=== PATIENT | male | born 1960 | race Caucasian/White ===

== ENCOUNTER → 2017-05-30 | Outpatient (CLI) | payer BC ==
--- NOTE | 2017-05-30 18:19 | RADIOLOGY REPORT (SQ) ---
EXAM DESCRIPTION: KUB/ABDOMEN (SINGLE VIEW) COMPLETED DATE/TIME: 05/30/2017 6:12 pm REASON FOR STUDY: CONSTIPATION-SLOW TRANSIT COMPARISON: None. NUMBER OF VIEWS: One view. TECHNIQUE: Supine radiographic image of the abdomen acquired. LIMITATIONS: None. FINDINGS: BOWEL GAS PATTERN: Normal bowel gas pattern. No dilated loops. CALCIFICATIONS: No suspicious calcifications. SOFT TISSUES: No gross mass or suggestion of organomegaly. HARDWARE: None in the abdomen. BONES: No acute fracture. No worrisome bone lesions. OTHER: No other significant finding. IMPRESSION: NO RADIOGRAPHIC EVIDENCE FOR ACUTE ABDOMINAL DISEASE. TECHNICAL DOCUMENTATION: JOB ID: [id number] [email or web address]- All Rights Reserved
== END ==
LOC: RAD 17:57
PROVIDERS: ATTEND Physician Assistant Surgical
DX: K59.01 Slow transit constipation (principal)
CPT/HCPCS: 74000

== ENCOUNTER → 2018-01-12 | Outpatient (CLI) | payer BC ==
[2018-01-12 17:49] LABS: ABSOLUTE EOSINOPHILS # (AUTO) 0.2 10^3/uL (0.0-0.6); ABSOLUTE LYMPHOCYTES (AUTO) 1.8 10^3/uL (0.5-4.7); ABSOLUTE MONOCYTES (AUTO) 0.4 10^3/uL (0.1-1.4); ABSOLUTE NEUT (AUTO) 3.2 10^3/uL (1.7-8.2); BASOPHILS % (AUTO) 0.7 % (0-2); EOSINOPHILS % (AUTO) 4.3 % (0-6); HEMOGLOBIN 14.2 g/dL (13.5-17.0); MEAN CORPUSCULAR HEMOGLOBIN 29.5 pg (27.0-33.4); MEAN CORPUSCULAR HGB CONC 34.7 g/dL (32.0-36.0); MEAN CORPUSCULAR VOLUME 85 fl (80-97); MONOCYTES % (AUTO) 7.4 % (3-13); PLATELET COUNT 206 10^3/uL (150-450); RED BLOOD COUNT 4.83 10^6/uL (4.35-5.55); RED CELL DISTRIBUTION WIDTH 13.3 % (11.5-14.0); SEGMENTED NEUTROPHILS % (AUTO) 56.6 % (42-78); TOTAL CELLS COUNTED % (AUTO) 100 %; WHITE BLOOD COUNT 5.7 10^3/uL (4.0-10.5)
== END ==
LOC: LAB 17:36
PROVIDERS: ATTEND Internal Medicine Gastroenterology
DX: K57.32 Diverticulitis of large intestine without perforation or abscess without bleeding (principal)
CPT/HCPCS: 36415; 85025

== ENCOUNTER → 2018-01-13 | Outpatient (CLI) | payer BC ==
--- NOTE | 2018-01-13 12:05 | RADIOLOGY REPORT (SQ) ---
EXAM DESCRIPTION: CT ABD/PELVIS WITH IV ORAL COMPLETED DATE/TIME: 01/13/2018 11:41 am REASON FOR STUDY: DIVERTICULITIS W/O HEM (K57.32), LLQ PAIN (R10.32) K57.32 DVTRCLI OF LG INT W/O P ERFORATION OR ABSCESS W/O BLEE R10.32 LEFT LOWER QUADRANT PAIN COMPARISON: None. TECHNIQUE: CT scan of the abdomen and pelvis performed using helical scanning technique with dynamic intravenous contrast injection. Oral contrast. Images reviewed with lung, soft tissue, and bone win dows. Reconstructed coronal and sagittal MPR images reviewed. Delayed images for evaluation of the ur inary system also acquired. All images stored on PACS. All CT scanners at this facility use dose modulation, iterative reconstruction, and/or weight based d osing when appropriate to reduce radiation dose to as low as reasonably achievable (ALARA). [facility]: Dose Right [facility]: CareDose [facility]: Dose Right [facility]: Teradose 4D [facility]: PaeDae CONTRAST TYPE AND DOSE: 46.72 100 mL Omnipaque 350- low osmolar. RENAL FUNCTION: Creatinine 1.1 RADIATION DOSE: CT Rad equipment meets quality standard of care and radiation dose reduction techniq ues were employed. CTDIvol: 23.2 - 23.5 mGy. DLP: 2361 mGy-cm.. LIMITATIONS: None. FINDINGS: LOWER CHEST: There is marked pleural nodularity. Numerous small pulmonary nodules are pre sent. The largest is about 8 mm. LIVER: Normal size. No masses. No dilated ducts. SPLEEN: Normal size. No focal lesions. PANCREAS: No masses. No significant calcifications. No adjacent inflammation or peripancreatic fluid collections. Pancreatic duct not dilated. GALLBLADDER: No identified stones by CT criteria. No inflammatory changes to suggest cholecystitis. ADRENAL GLANDS: No significant masses or asymmetry. RIGHT KIDNEY AND URETER: No solid masses. No significant calcifications. No hydronephrosis or hyd roureter. LEFT KIDNEY AND URETER: No solid masses. No significant calcifications. No hydronephrosis or hydr oureter. AORTA AND VESSELS: No aneurysm. No dissection. Renal arteries, SMA, celiac without stenosis. RETROPERITONEUM: Numerous periaortic nodes are present. The largest measures 17 mm in short axis. BOWEL AND PERITONEAL CAVITY: Numerous diverticula are seen arising from the sigmoid colon. There is thickening of a segment of the sigmoid wall. No significant stranding is seen in the fat around the bowel. No obvious bowel masses are seen. APPENDIX: Surgically absent. PELVIS: No mass. No free fluid. Normal bladder. ABDOMINAL WALL: No masses. No hernias. BONES: No osseous lesions are present. OTHER: No other significant finding. IMPRESSION: 1. Pulmonary and pleural nodularity somewhat concerning for metastatic disease. Is the re a known neoplasm? 2. Numerous periaortic lymph nodes are present. 3. Sigmoid diverticulosis with mild wall thickening of a segment of the sigmoid that may indicate in flammation. COMMENT: Findings were discussed with the ordering physician at 1200 hours on this date. TECHNICAL DOCUMENTATION: JOB ID: [id number] Quality ID # [id number]: Final reports with documentation of one or more dose reduction techniques (e.g., Au tomated exposure control, adjustment of the mA and/or kV according to patient size, use of iterative reconstruction technique) 2010 [employer]- All Rights Reserved Reading location - IP/workstation name: [email or web address]
== END ==
LOC: RAD 09:06
PROVIDERS: ATTEND Internal Medicine Gastroenterology
DX: K57.32 Diverticulitis of large intestine without perforation or abscess without bleeding (principal); R10.32 Left lower quadrant pain
CPT/HCPCS: 74177; 82565

== ENCOUNTER 2018-03-05 12:06 | Inpatient (IN) | payer BC ==
[2018-03-05] MEDS ORDERED: ONDANSETRON HCL INJ/PF 4 MG/2 ML SDV IV ONE (14:42)
[2018-03-05] MEDS ORDERED: MORPHINE SULFATE 10 MG/ML INJ IV ONE ×3 (14:42→23:49)
[2018-03-05] MEDS ORDERED: NORMAL SALINE 1000 ML 1,000 ML IV ONE ×2 (14:42→22:41)
--- NOTE | 2018-03-05 14:44 | ER Document Report ---
ED Medical Screen (RME) - General Chief Complaint: Abdominal Pain Stated Complaint: LOWER ABDOMINAL PAIN Time Seen by Provider: 03/05/18 14:36 Mode of Arrival: Ambulatory Information source: Patient Notes: Patient is a 58-year-old male who presents with chief complaint of low abdominal pain. Patient reports this is been going on for several months, states over the last several days it has gotten worse. Patient reports low- grade fever at home, nausea and vomiting. Patient denies any diarrhea. Patient reports that the pain is exacerbated with any oral intake. Patient denies any urinary symptoms. Exam: Abdomen tender to palpation to right lower quadrant as well as suprapubic area. I have greeted and performed a rapid initial assessment of this patient. A comprehensive ED assessment and evaluation of the patient, analysis of test results and completion of the medical decision making process will be conducted by additional ED providers. Dictation of this chart was performed using voice recognition software; therefore, there may be some unintended grammatical errors. TRAVEL OUTSIDE OF THE [place] IN LAST 30 DAYS: No - Related Data Allergies/Adverse Reactions: Penicillins Allergy (Severe, Verified 03/05/18 14:35) tetracycline [Tetracycline] Allergy (Intermediate, Verified 03/05/18 14:35) codeine [Codeine] Adverse Reaction (Intermediate, Verified 03/05/18 14:35) Nausea Past Medical History - Social History Chew tobacco use (# tins/day): No Frequency of alcohol use: None Drug Abuse: None - Past Medical History Cardiac Medical History: Reports: Hx Hypertension - MEDICATED Denies: Hx Heart Attack Pulmonary Medical History: Denies: Hx Asthma Neurological Medical History: Denies: Hx Cerebrovascular Accident, Hx Seizures Renal/ Medical History: Denies: Hx Peritoneal Dialysis GI Medical History: Denies: Hx Hepatitis, Hx Hiatal Hernia, Hx Ulcer Infectious Medical History: Denies: Hx Hepatitis Past Surgical History: Reports: Hx Appendectomy, Hx Neurologic Surgery - Removal of benign brain tumor. Denies: Hx Open Heart Surgery, Hx Pacemaker Physical Exam - Vital signs Vitals: Temp Pulse Resp BP Pulse Ox 98.2 F 78 24 H 128/68 H 97 03/05/18 12:43 03/05/18 12:43 03/05/18 12:43 03/05/18 12:43 03/05/18 12:43 Course - Vital Signs Vital signs: Temp Pulse Resp BP Pulse Ox 98.2 F 78 24 H 128/68 H 97 03/05/18 12:43 03/05/18 12:43 03/05/18 12:43 03/05/18 12:43 03/05/18 12:43
[2018-03-05 15:15] LABS: ABSOLUTE EOSINOPHILS # (AUTO) 0.1 10^3/uL (0.0-0.6); ABSOLUTE LYMPHOCYTES (AUTO) 1.1 10^3/uL (0.5-4.7); ABSOLUTE MONOCYTES (AUTO) 0.7 10^3/uL (0.1-1.4); ABSOLUTE NEUT (AUTO) 6.6 10^3/uL (1.7-8.2); APPEARANCE,URINE CLEAR; BASOPHILS % (AUTO) 0.3 % (0-2); BILIRUBIN,URINE NEGATIVE (NEGATIVE); COLOR,URINE YELLOW; EOSINOPHILS % (AUTO) 1.6 % (0-6); GLUCOSE, URINE NEGATIVE (NEGATIVE); HEMATOCRIT 42.8 % (37.9-51.0); HEMOGLOBIN 15.1 g/dL (13.5-17.0); KETONES,URINE 20 mg/dL (NEGATIVE); LEUKOCYTE ESTERASE,URINE NEGATIVE (NEGATIVE); LYMPHOCYTES % (AUTO) 12.8 % (13-45); MEAN CORPUSCULAR HEMOGLOBIN 29.8 pg (27.0-33.4); MEAN CORPUSCULAR HGB CONC 35.1 g/dL (32.0-36.0); MEAN CORPUSCULAR VOLUME 85 fl (80-97); MONOCYTES % (AUTO) 8.2 % (3-13); NITRITE,URINE NEGATIVE (NEGATIVE); PLATELET COUNT 188 10^3/uL (150-450); PROTEIN,URINE NEGATIVE (NEGATIVE); RED BLOOD COUNT 5.04 10^6/uL (4.35-5.55); RED CELL DISTRIBUTION WIDTH 13.3 % (11.5-14.0); SEGMENTED NEUTROPHILS % (AUTO) 77.1 % (42-78); TOTAL CELLS COUNTED % (AUTO) 100 %; URINE SPECIFIC GRAVITY 1.026; UROBILINOGEN,URINE NEGATIVE mg/dL (<2.0); WHITE BLOOD COUNT 8.6 10^3/uL (4.0-10.5)
[2018-03-05 15:32] LABS: ALANINE AMINOTRANSFERASE 25 U/L (21-72); ALBUMIN 4.3 g/dL (3.5-5.0); ALKALINE PHOSPHATASE 74 U/L (38-126); ANION GAP 9 (5-19); ASPARTATE AMINO TRANSFERASE 24 U/L (17-59); BILIRUBIN,DIRECT 0.5 mg/dL (0.0-0.4); BILIRUBIN,TOTAL 1.3 mg/dL (0.2-1.3); BLOOD UREA NITROGEN 19 mg/dL (7-20); CALCIUM 9.5 mg/dL (8.4-10.2); CARBON DIOXIDE 29 mmol/L (22-30); CHLORIDE 101 mmol/L (98-107); GLUCOSE 103 mg/dL (75-110); LIPASE 76.2 U/L (23-300); POTASSIUM 4.4 mmol/L (3.6-5.0); SODIUM 138.9 mmol/L (137-145); TOTAL PROTEIN 7.9 g/dL (6.3-8.2)
--- NOTE | 2018-03-05 17:51 | ER Document Report ---
ED GI/ - General Chief Complaint: Abdominal Pain Stated Complaint: LOWER ABDOMINAL PAIN Time Seen by Provider: 03/05/18 14:36 Mode of Arrival: Ambulatory Notes: Patient is a 58-year-old male who states that he has had abdominal pain to the lower abdominal region for 1 year. In May he saw the straight knife cutter machine, Dr. Pineda, and had a colonoscopy and endoscopy that was unremarkable except for some diverticuli. Patient states he then followed up again in December given the constant pain and had a CT scan that was supposedly also unremarkable. Patient was still started however on ciprofloxacin and Flagyl. He states he felt better for only 1 week. Patient states he again has had this recurrence of pain since that time. He states it is intermittent. He states it is to the level suprapubic region. He denies any nausea, vomiting, fevers, or diarrhea. He actually states he has some trouble with constipation. He denies any testicular pain, penile lesions, or dysuria. TRAVEL OUTSIDE OF THE [place] IN LAST 30 DAYS: No - HPI Patient complains to provider of: Other - See above Onset: Other - See above Timing/Duration: Gradual Quality of pain: Achy Severity at maximum: Moderate Severity in ED: Mild Pain Level: 1 Context: Other - See above Location: Other - See above Sexual history: Inactive Associated symptoms: Other - See above Exacerbated by: Denies Relieved by: Denies - Related Data Allergies/Adverse Reactions: Penicillins Allergy (Severe, Verified 03/05/18 14:35) tetracycline [Tetracycline] Allergy (Intermediate, Verified 03/05/18 14:35) codeine [Codeine] Adverse Reaction (Intermediate, Verified 03/05/18 14:35) Nausea Past Medical History - General Information source: Patient - Social History Smoking Status: Never Smoker Chew tobacco use (# tins/day): No Frequency of alcohol use: None Drug Abuse: None Family History: Reviewed & Not Pertinent Patient has suicidal ideation: No Patient has homicidal ideation: No - Past Medical History Cardiac Medical History: Reports: Hx Hypertension - MEDICATED Denies: Hx Heart Attack Pulmonary Medical History: Denies: Hx Asthma Neurological Medical History: Denies: Hx Cerebrovascular Accident, Hx Seizures Renal/ Medical History: Denies: Hx Peritoneal Dialysis GI Medical History: Denies: Hx Hepatitis, Hx Hiatal Hernia, Hx Ulcer Infectious Medical History: Denies: Hx Hepatitis Past Surgical History: Reports: Hx Appendectomy, Hx Neurologic Surgery - Removal of benign brain tumor. Denies: Hx Open Heart Surgery, Hx Pacemaker Review of Systems - Review of Systems Constitutional: denies: Fever EENT: denies: Eye discharge, Nose discharge Cardiovascular: denies: Chest pain, Palpitations Respiratory: denies: Short of breath Gastrointestinal: denies: Vomiting Genitourinary: denies: Dysuria Musculoskeletal: denies: Leg swelling Skin: Other - no hives. denies: Rash Neurological/Psychological: Other - no slurred speech -: Yes All other systems reviewed and negative Physical Exam - Vital signs Vitals: Temp Pulse Resp BP Pulse Ox 98.2 F 78 24 H 128/68 H 97 03/05/18 12:43 03/05/18 12:43 03/05/18 12:43 03/05/18 12:43 03/05/18 12:43 Notes: Reviewed vital signs and nursing note as charted by RN. CONSTITUTIONAL: Alert and oriented and responds appropriately to questions. Well -appearing; well-nourished HEAD: Normocephalic; atraumatic EYES: Sclerae non-icteric ENT: Normal nose; no rhinorrhea; moist mucous membranes; pharynx without lesions noted NECK: Supple without meningismus; non-tender; no cervical lymphadenopathy, no masses CARD: Regular rate and rhythm; no murmurs; symmetric distal pulses RESP: Normal chest excursion without splinting or tachypnea; breath sounds clear and equal bilaterally ABD/GI: Normal bowel sounds; non-distended; soft, mild tenderness to the lower pelvic region that is nonfocal in nature. No rebound or guarding : Patient has no penile lesions, inguinal masses, testicular pain or swelling BACK: The back appears normal and is non-tender to palpation, there is no CVA tenderness EXT: Normal ROM in all joints; non-tender to palpation; no cyanosis, no effusions, no edema SKIN: No acute lesions noted NEURO: Moves all extremities equally; Motor and sensory function intact PSYCH: The patient's mood and manner are appropriate. Grooming and personal hygiene are appropriate. Course - Re-evaluation Re-evalutation: Given the above history and physical examination with tenderness over the suprapubic and lower abdominal region, I will obtain basic labs, urine analysis , CT scan of the abdomen and pelvis and reassess. I did perform a rectal examination I do not detect any stool impaction of perirectal lesions. Vital signs as recorded. 03/05/18 17:53 Labs as recorded. Normal liver panel and lipase. - Vital Signs Vital signs: Temp Pulse Resp BP Pulse Ox 98.2 F 78 24 H 128/68 H 97 03/05/18 12:43 03/05/18 12:43 03/05/18 12:43 03/05/18 12:43 03/05/18 12:43 - Laboratory Result Diagrams: 03/05/18 14:55 03/05/18 14:55 Laboratory results interpreted by me: 03/05/18 03/05/18 03/05/18 14:55 14:55 14:55 Lymphocytes % 12.8 L Direct Bilirubin 0.5 H Urine Ketones 20 H Urine Blood SMALL H
--- NOTE | 2018-03-05 20:42 | RADIOLOGY REPORT (SQ) ---
EXAM DESCRIPTION: CT ABD/PELVIS WITH IV ONLY COMPLETED DATE/TIME: 03/05/2018 8:19 pm REASON FOR STUDY: 38; lower abdominal pain COMPARISON: CT abdomen pelvis 01/13/2018 CT chest 01/20/2013 [facility] TECHNIQUE: CT scan of the abdomen and pelvis performed using helical scanning technique with dynamic intravenous contrast injection. No oral contrast. Images reviewed with lung, soft tissue, and bone windows. Reconstructed coronal and sagittal MPR images reviewed. Delayed images for evaluation of the urinary system also acquired. All images stored on PACS. All CT scanners at this facility use dose modulation, iterative reconstruction, and/or weight based d osing when appropriate to reduce radiation dose to as low as reasonably achievable (ALARA). [facility]: Dose Right [facility]: CareDose [facility]: Dose Right [facility]: Teradose 4D [facility]: Spockly CONTRAST TYPE AND DOSE: contrast/concentration: Isovue 350.00 mg/ml; Total Contrast Delivered: 99.0 ml; Total Saline Delivered: 72.0 ml RENAL FUNCTION: Creatinine 0.9 RADIATION DOSE: CT Rad equipment meets quality standard of care and radiation dose reduction techniq ues were employed. CTDIvol: 18.4 - 20.0 mGy. DLP: 2038 mGy-cm.. LIMITATIONS: None. FINDINGS: Along the distal descending/proximal sigmoid colon, a 10 cm long segment of colon wall thi ckening, luminal narrowing, and surrounding inflammatory change in the pericolic fat is present. Thi s is best shown on coronal images 27-36, likely acute diverticulitis. No adjacent free air or fluid. No abscess. There are multiple enlarged retroperitoneal lymph nodes, abnormal but nonspecific. These are similar compared to 01/13/2018 CT abdomen pelvis. Largest of these is a left para-aortic lymph node, 3 x 1.5 cm on coronal image 45. LOWER CHEST: There are multiple pleural-based nodules and multiple nodules in the bilateral lung base s which are new compared to CT chest in 2012. These are abnormal but nonspecific and could be postin flammatory or metastatic. LIVER: Normal size. No masses. No dilated ducts. SPLEEN: Normal size. No focal lesions. PANCREAS: No masses. No significant calcifications. No adjacent inflammation or peripancreatic fluid collections. Pancreatic duct not dilated. GALLBLADDER: No identified stones by CT criteria. No inflammatory changes to suggest cholecystitis. ADRENAL GLANDS: No significant masses or asymmetry. RIGHT KIDNEY AND URETER: No solid masses. No significant calcifications. No hydronephrosis or hyd roureter. LEFT KIDNEY AND URETER: No solid masses. 2 cm left midpole renal cyst No significant calcifications. No hydronephrosis or hydroureter. AORTA AND VESSELS: No aneurysm. No dissection. Renal arteries, SMA, celiac without stenosis. RETROPERITONEUM: As above BOWEL AND PERITONEAL CAVITY: As above APPENDIX: Surgically absent PELVIS: No mass. No free fluid. Normal bladder. ABDOMINAL WALL: No masses. No hernias. BONES: No significant or acute findings. OTHER: No other significant finding. IMPRESSION: Acute diverticulitis in the distal descending/ proximal sigmoid colon Abnormal retroperitoneal adenopathy with multiple lung parenchymal and pleural-based nodules CT abdom en, similar compared to CT 01/13/2018 TECHNICAL DOCUMENTATION: JOB ID: [id number] Quality ID # [id number]: Final reports with documentation of one or more dose reduction techniques (e.g., Au tomated exposure control, adjustment of the mA and/or kV according to patient size, use of iterative reconstruction technique) 2010 [employer]- All Rights Reserved Reading location - IP/workstation name: [email or web address]
[2018-03-05] MEDS ORDERED: LEVOFLOXACIN 500 MG/D5W RTU 500 MG/100 ML RTUPB IV ONE (22:40)
[2018-03-05] MEDS ORDERED: METRONIDAZOLE 500 MG/NS RTU 500 MG/100 ML RTUPB IV ONE (23:00)
[2018-03-06] MEDS ORDERED: MAG HYDROX/AL HYDROX/SIMETH SUSP 30 ML UDCUP PO PRN (00:22)
[2018-03-06] MEDS ORDERED: PROMETHAZINE HCL 25 MG SUPP.RECT PR PRN (00:22)
[2018-03-06] MEDS ORDERED: DEXTROSE 50%-WATER 25 GM/50 ML DISP.SYRIN IV PRN ×2 (00:22)
[2018-03-06] MEDS ORDERED: DEXTROSE 40% GEL 15 GM TUBE PO PRN ×2 (00:22)
[2018-03-06] MEDS ORDERED: PROMETHAZINE HCL INJ 25 MG/1 ML VIAL IV PRN (00:22)
[2018-03-06] MEDS ORDERED: GLUCAGON,HUMAN RECOMB 1 MG INJ SUBCUT PRN (00:22)
[2018-03-06] MEDS ORDERED: PANTOPRAZOLE SODIUM 40 MG VIAL IV ONE (00:55)
[2018-03-06] MEDS ORDERED: CIPROFLOXACIN 400 MG/D5W RTU 400 MG/200 ML RTUPB IV ONE (01:00)
--- NOTE | 2018-03-06 01:56 | PDOC H&P ---
History of Present Illness Admission Date/PCP: 03/05/18 22:57 History of Present Illness: CRISTOBAL CHING is a 58 year old male who declined to talk to me and did not let me examine him, tells me if "this is a joke" that I have to ask him questions again and do another physical exam. I am gathering the information from the ED attending notes. States that he has had abdominal pain to the lower abdominal region for 1 year. In May he saw the claim professional, Dr. Pineda, and had a colonoscopy and endoscopy that was unremarkable except for some diverticuli. Patient states he then followed up again in December given the constant pain and had a CT scan that was supposedly also unremarkable. Patient was still started however on ciprofloxacin and Flagyl. He states he felt better for only 1 week. Patient states he again has had this recurrence of pain since that time. He states it is intermittent. He states it is to the level suprapubic region. He denies any nausea, vomiting, fevers, or diarrhea. He actually states he has some trouble with constipation. He denies any testicular pain, penile lesions, or dysuria. CT abdomen and pelvis shows acute diverticulitis in the distal descending and proximal sigmoid colon. Past Medical History Cardiac Medical History: Reports: Hypertension - MEDICATED Past Surgical History Past Surgical History: Reports: Appendectomy Social History Smoking Status: Never Smoker Frequency of Alcohol Use: None Hx Recreational Drug Use: No Hx Prescription Drug Abuse: No Family History Family History: Reviewed & Not Pertinent Parental Family History Reviewed: No - Patient declined to talk to me Children Family History Reviewed: NA Sibling(s) Family History Reviewed.: NA Medication/Allergy Home Medications: Olmesartan Medoxomil [Benicar] 10 mg PO QAM 02/22/12 Albuterol Sulfate [Ventolin Hfa] 2 puff IH Q4HP PRN #17 gm 07/16/15 Azithromycin [Zithromax 250 mg Tablet] 250 mg PO DAILY 4 Days tablet 07/16/15 Inhaler,Assist Device,Accesory [Optichamber] 1 each MC Q4 PRN #1 each 07/16/15 Oxycodone HCl/Acetaminophen [Percocet 5-325 mg Tablet] 1 - 2 tab PO ASDIR PRN # 20 tablet 07/16/15 Prednisone 20 mg PO DAILY #12 tablet 07/16/15 Allergies/Adverse Reactions: Penicillins Allergy (Severe, Verified 03/05/18 14:35) tetracycline [Tetracycline] Allergy (Intermediate, Verified 03/05/18 14:35) codeine [Codeine] Adverse Reaction (Intermediate, Verified 03/05/18 14:35) Nausea Review of Systems Review of Systems: As per ED attending notes, patient declined to talk to me Physical Exam Vital Signs: Temp Pulse Resp BP Pulse Ox 98.3 F 69 16 119/63 96 03/05/18 23:00 03/05/18 23:00 03/05/18 23:00 03/05/18 23:00 03/05/18 23:00 Additional comments: Physical exam unable to be performed as the patient refused to have it done Results Impressions: Abdomen/Pelvis CT 03/05/18 17:41 IMPRESSION: Acute diverticulitis in the distal descending/ proximal sigmoid colon Abnormal retroperitoneal adenopathy with multiple lung parenchymal and pleural- based nodules CT abdomen, similar compared to CT 01/13/2018 Assessment & Plan - Diagnosis (1) Acute diverticulitis Is this a current diagnosis for this admission?: Yes Plan: Patient comes complaining of abdominal pain. CT abdomen and pelvis positive for acute diverticulitis in the distal descending and proximal sigmoid colon. IV ciprofloxacin and IV Flagyl will be placed for the patient. Please follow blood cultures. IV fluids. IV antiemetics and pain medication as needed. Stool guaiac negative. Lactic acid in the morning. - Time Time Spent: 30 to 50 Minutes - Inpatient Certification Based on my medical assessment, after consideration of the patient's comorbidities, presenting symptoms, or acuity I expect that the services needed warrant INPATIENT care.: Yes I certify that my determination is in accordance with my understanding of Medicare's requirements for reasonable and necessary INPATIENT services [42 CFR 412.3e].: Yes Medical Necessity: Risk of Complication if Not Cared For in Hospital
[2018-03-06] MEDS ORDERED: METRONIDAZOLE 500 MG/NS RTU 500 MG/100 ML RTUPB IV SCH (02:00)
[2018-03-06] MEDS ORDERED: METRONIDAZOLE 500 MG/NS RTU 500 MG/100 ML RTUPB IV ONE (02:00)
[2018-03-06 03:57] LABS: ABSOLUTE EOSINOPHILS # (AUTO) 0.1 10^3/uL (0.0-0.6); ABSOLUTE LYMPHOCYTES (AUTO) 0.8 10^3/uL (0.5-4.7); ABSOLUTE MONOCYTES (AUTO) 0.5 10^3/uL (0.1-1.4); ABSOLUTE NEUT (AUTO) 6.6 10^3/uL (1.7-8.2); BASOPHILS % (AUTO) 0.4 % (0-2); HEMATOCRIT 37.5 % (37.9-51.0); HEMOGLOBIN 13.4 g/dL (13.5-17.0); LYMPHOCYTES % (AUTO) 9.7 % (13-45); MEAN CORPUSCULAR HEMOGLOBIN 30.1 pg (27.0-33.4); MEAN CORPUSCULAR HGB CONC 35.6 g/dL (32.0-36.0); MEAN CORPUSCULAR VOLUME 85 fl (80-97); MONOCYTES % (AUTO) 6.6 % (3-13); PLATELET COUNT 149 10^3/uL (150-450); RED BLOOD COUNT 4.44 10^6/uL (4.35-5.55); RED CELL DISTRIBUTION WIDTH 13.3 % (11.5-14.0); SEGMENTED NEUTROPHILS % (AUTO) 82.3 % (42-78); TOTAL CELLS COUNTED % (AUTO) 100 %
[2018-03-06 04:16] LABS: ANION GAP 8 (5-19); BLOOD UREA NITROGEN 16 mg/dL (7-20); CALCIUM 8.4 mg/dL (8.4-10.2); CARBON DIOXIDE 22 mmol/L (22-30); CHLORIDE 104 mmol/L (98-107); GLUCOSE 127 mg/dL (75-110); POTASSIUM 4.2 mmol/L (3.6-5.0)
[2018-03-06] MEDS: HEPARIN SOD (PORCINE) 5,000 UNIT/ML 1 ML SYRINGE SUBCUT SCH ×3 (07:11→22:27)
[2018-03-06] MEDS: NORMAL SALINE 1000 ML 1,000 ML IV PRN ×2 (07:12→18:00)
[2018-03-06] MEDS ORDERED: CIPROFLOXACIN 400 MG/D5W RTU 400 MG/200 ML RTUPB IV SCH (10:00)
[2018-03-06] MEDS ORDERED: SIMETHICONE 80 MG TAB.CHEW PO PRN (10:33)
[2018-03-06] MEDS: METRONIDAZOLE 500 MG/NS RTU 500 MG/100 ML RTUPB IV SCH ×2 (11:12→18:00)
[2018-03-06] MEDS: POLYETHYLENE GLYCOL 3350 POWDER 17 GM/1 PACKET PO SCH (11:12)
[2018-03-06] MEDS: VALSARTAN 40 MG TABLET PO SCH (11:14)
[2018-03-06] MEDS: ACETAMINOPHEN 325 MG TABLET PO PRN ×2 (17:58→22:35)
[2018-03-06] MEDS: MORPHINE SULFATE 10 MG/ML INJ IV PRN (20:00)
[2018-03-06] MEDS: LEVOFLOXACIN 750 MG/D5W RTU 750 MG/150 ML RTUPB IV SCH (22:35)
--- NOTE | 2018-03-06 23:53 | PDOC PROGRESS REPORT ---
Subjective Progress Note for:: 03/06/18 Subjective:: Patient reports improvement of his abdominal pain. Denies nausea/vomiting. Denies any bowel movement on the medical floor so far. He reports that when he was previously treated for suspected diverticulitis despite negative CT abdomen , he had a lot of GI difficulty with the Cipro. Tolerated Flagyl okay. He told the doctors that he saw in the ER about the intolerance to p.o. Cipro, and he was a bit dismayed that they put him on Cipro anyway, although it was in IV form. To reassure him, we will switch to IV Levaquin, so then when he is switched to p.o., hopefully p.o. Cipro will be avoided. Reason For Visit: ACUTE DIVERTICULITIS Physical Exam Vital Signs: Temp Pulse Resp BP Pulse Ox 98.1 F 62 19 121/67 96 03/06/18 20:44 03/06/18 20:44 03/06/18 20:44 03/06/18 20:44 03/06/18 20:44 Intake & Output 03/05/18 03/06/18 03/07/18 06:59 06:59 06:59 Intake Total 1400 1920 Balance 1400 1920 Additional comments: Constitutional: Well-developed, well-nourished, no apparent distress currently. ENT: Oral mucous membranes pink and moist. Neck: No visible JVD, trachea midline. Lungs: Clear to auscultation bilaterally Heart: Regular rhythm, mildly tachycardic, without obvious murmur gallop or rub. Abdomen: Hyperactive bowel sounds. Tender to palpation on the periphery from right lower quadrant to right upper quadrant and left upper quadrant to left lower quadrant and suprapubic areas. Midabdomen is not particularly tender. No rebound tenderness. No rigidity. Soft. Extremities: No clubbing, cyanosis, or edema. Skin: Warm, dry, intact Neurologic: No focal motor or sensory deficits demonstrated. Await, alert, and oriented. Psychiatric: Pleasant and cooperative. Results Laboratory Results: 03/06/18 03:48 03/06/18 03:48 03/06/18 03/06/18 03:48 03:48 WBC 8.0 RBC 4.44 Hgb 13.4 L Hct 37.5 L MCV 85 MCH 30.1 MCHC 35.6 RDW 13.3 Plt Count 149 L Seg Neutrophils % 82.3 H Lymphocytes % 9.7 L Monocytes % 6.6 Eosinophils % 1.0 Basophils % 0.4 Absolute Neutrophils 6.6 Absolute Lymphocytes 0.8 Absolute Monocytes 0.5 Absolute Eosinophils 0.1 Absolute Basophils 0.0 Sodium 134.0 L Potassium 4.2 Chloride 104 Carbon Dioxide 22 Anion Gap 8 BUN 16 Creatinine 0.78 Est GFR ( Amer) > 60 Est GFR (Non-Af Amer) > 60 Glucose 127 H Calcium 8.4 Impressions: Abdomen/Pelvis CT 03/05/18 17:41 IMPRESSION: Acute diverticulitis in the distal descending/ proximal sigmoid colon Abnormal retroperitoneal adenopathy with multiple lung parenchymal and pleural- based nodules CT abdomen, similar compared to CT 01/13/2018 Assessment & Plan - Diagnosis (1) Acute diverticulitis Is this a current diagnosis for this admission?: Yes (2) Hypertension Qualifiers: Hypertension type: essential hypertension Qualified Code(s): I10 - Essential (primary) hypertension Is this a current diagnosis for this admission?: Yes Plan: Continue usual home ARB - Time Time Spent with patient: 25-34 minutes Anticipated discharge: Home Within: within 72 hours
[2018-03-07] MEDS: METRONIDAZOLE 500 MG/NS RTU 500 MG/100 ML RTUPB IV SCH ×3 (02:26→17:29)
[2018-03-07] MEDS: MORPHINE SULFATE 10 MG/ML INJ IV PRN ×5 (02:33→22:04)
[2018-03-07] MEDS: NORMAL SALINE 1000 ML 1,000 ML IV PRN ×2 (05:48→13:59)
[2018-03-07] MEDS: HEPARIN SOD (PORCINE) 5,000 UNIT/ML 1 ML SYRINGE SUBCUT SCH ×3 (07:09→22:04)
[2018-03-07 07:17] LABS: ABSOLUTE EOSINOPHILS # (AUTO) 0.2 10^3/uL (0.0-0.6); ABSOLUTE LYMPHOCYTES (AUTO) 0.9 10^3/uL (0.5-4.7); ABSOLUTE MONOCYTES (AUTO) 0.5 10^3/uL (0.1-1.4); ABSOLUTE NEUT (AUTO) 2.9 10^3/uL (1.7-8.2); BASOPHILS % (AUTO) 0.6 % (0-2); EOSINOPHILS % (AUTO) 4.3 % (0-6); HEMATOCRIT 36.5 % (37.9-51.0); LYMPHOCYTES % (AUTO) 20.6 % (13-45); MEAN CORPUSCULAR HEMOGLOBIN 30.3 pg (27.0-33.4); MEAN CORPUSCULAR HGB CONC 35.6 g/dL (32.0-36.0); MEAN CORPUSCULAR VOLUME 85 fl (80-97); MONOCYTES % (AUTO) 10.3 % (3-13); PLATELET COUNT 145 10^3/uL (150-450); RED BLOOD COUNT 4.28 10^6/uL (4.35-5.55); RED CELL DISTRIBUTION WIDTH 13.1 % (11.5-14.0); SEGMENTED NEUTROPHILS % (AUTO) 64.2 % (42-78); TOTAL CELLS COUNTED % (AUTO) 100 %; WHITE BLOOD COUNT 4.6 10^3/uL (4.0-10.5)
[2018-03-07] MEDS: POLYETHYLENE GLYCOL 3350 POWDER 17 GM/1 PACKET PO SCH (09:32)
[2018-03-07] MEDS: VALSARTAN 40 MG TABLET PO SCH (13:21)
[2018-03-07] MEDS: ACETAMINOPHEN 325 MG TABLET PO PRN (14:03)
[2018-03-07] MEDS ORDERED: ONDANSETRON HCL INJ/PF 4 MG/2 ML SDV IV PRN (16:42)
--- NOTE | 2018-03-07 16:51 | PDOC PROGRESS REPORT ---
Subjective Progress Note for:: 03/07/18 Subjective:: Patient and I had an extended discussion about his medical problems. Patient is well aware of the lesions in his chest and abdomen. He prefers that I did not dictate what his diagnosis is into his medical record, he sees a specialist at [place] regularly. There is the possibility that this left lower quadrant pain is related to that diagnosis, we will consider consulting gastroenterology if he does not show any improvement by tomorrow, to assure that this is truly diverticulitis that we are dealing with. Peck he is breathing fine, no chest pain or difficulty breathing, no fevers or chills, he is taking sips of clears. Dysuria constipation or diarrhea. Reason For Visit: ACUTE DIVERTICULITIS Physical Exam Vital Signs: Temp Pulse Resp BP Pulse Ox 98.2 F 64 18 122/68 98 03/07/18 15:09 03/07/18 15:09 03/07/18 15:09 03/07/18 15:09 03/07/18 15:09 Intake & Output 03/06/18 03/07/18 03/08/18 06:59 06:59 06:59 Intake Total 1400 5870 1820 Balance 1400 5870 1820 General appearance: PRESENT: no acute distress, obese Head exam: PRESENT: atraumatic, normocephalic Eye exam: PRESENT: EOMI. ABSENT: conjunctival injection, scleral icterus Mouth exam: PRESENT: moist, neck supple Respiratory exam: PRESENT: clear to auscultation enzo, unlabored. ABSENT: rales , wheezes Cardiovascular exam: PRESENT: RRR. ABSENT: systolic murmur GI/Abdominal exam: PRESENT: distended, guarding, hypoactive bowel sounds, soft, tenderness. ABSENT: firm, rigid Extremities exam: ABSENT: pedal edema Musculoskeletal exam: ABSENT: deformity Neurological exam: PRESENT: alert, awake, oriented to person, oriented to place , oriented to situation, CN II-XII grossly intact Psychiatric exam: PRESENT: anxious, appropriate affect Skin exam: PRESENT: dry, intact, warm Results Laboratory Results: 03/07/18 06:58 03/06/18 03:48 03/07/18 03/07/18 06:58 06:58 WBC 4.6 RBC 4.28 L Hgb 13.0 L Hct 36.5 L MCV 85 MCH 30.3 MCHC 35.6 RDW 13.1 Plt Count 145 L Seg Neutrophils % 64.2 Lymphocytes % 20.6 Monocytes % 10.3 Eosinophils % 4.3 Basophils % 0.6 Absolute Neutrophils 2.9 Absolute Lymphocytes 0.9 Absolute Monocytes 0.5 Absolute Eosinophils 0.2 Absolute Basophils 0.0 Lactic Acid 0.9 Impressions: Abdomen/Pelvis CT 03/05/18 17:41 IMPRESSION: Acute diverticulitis in the distal descending/ proximal sigmoid colon Abnormal retroperitoneal adenopathy with multiple lung parenchymal and pleural- based nodules CT abdomen, similar compared to CT 01/13/2018 Assessment & Plan - Diagnosis (1) Abdominal pain Qualifiers: Abdominal location: left lower quadrant Qualified Code(s): R10.32 - Left lower quadrant pain Is this a current diagnosis for this admission?: Yes Plan: It is possible that this is diverticulitis, but other etiologies are possible. He is not improving with antibiotics and IV fluids. We will give the antibiotics another day, reevaluate him and consider consulting GI. I have increased his morphine from 1 mg IV every 4 hours as needed pain to 2 mg IV every 4 hours as needed pain. (2) Acute diverticulitis Is this a current diagnosis for this admission?: Yes Plan: This is our working diagnosis. We will continue Levaquin 750 mg IV daily and Flagyl 500 mg IV every 8 hours. Patient has had an adverse reaction to Cipro in the past that is why we are using Levaquin, he is tolerating the Levaquin without difficulty. He will continue on IV fluid hydration, pain management, sips of clears. - Time Time Spent with patient: 25-34 minutes Medications reviewed and adjusted accordingly: Yes - Inpatient Certification Based on my medical assessment, after consideration of the patient's comorbidities, presenting symptoms, or acuity I expect that the services needed warrant INPATIENT care.: Yes I certify that my determination is in accordance with my understanding of Medicare's requirements for reasonable and necessary INPATIENT services [42 CFR 412.3e].: Yes Medical Necessity: Need For IV Fluids, Need for IV Antibiotics, Risk of Complication if Not Cared For in Hospital
[2018-03-07 17:24] LABS: HEMOGLOBIN 13.2 g/dL (13.5-17.0); MEAN CORPUSCULAR HEMOGLOBIN 30.2 pg (27.0-33.4); MEAN CORPUSCULAR HGB CONC 35.7 g/dL (32.0-36.0); MEAN CORPUSCULAR VOLUME 85 fl (80-97); PLATELET COUNT 174 10^3/uL (150-450); RED BLOOD COUNT 4.36 10^6/uL (4.35-5.55); RED CELL DISTRIBUTION WIDTH 13.4 % (11.5-14.0); WHITE BLOOD COUNT 4.6 10^3/uL (4.0-10.5)
[2018-03-07 17:38] LABS: BLOOD UREA NITROGEN 10 mg/dL (7-20); CALCIUM 8.6 mg/dL (8.4-10.2); GLUCOSE 88 mg/dL (75-110); POTASSIUM 4.1 mmol/L (3.6-5.0)
[2018-03-07 17:43] LABS: CARBON DIOXIDE 30 mmol/L (22-30); CHLORIDE 105 mmol/L (98-107); SODIUM 138.1 mmol/L (137-145)
[2018-03-07 17:48] LABS: ANION GAP 3 (5-19)
[2018-03-07] MEDS: LEVOFLOXACIN 750 MG/D5W RTU 750 MG/150 ML RTUPB IV SCH (22:04)
[2018-03-08] MEDS: NORMAL SALINE 1000 ML 1,000 ML IV PRN ×4 (00:23→21:51)
[2018-03-08] MEDS: METRONIDAZOLE 500 MG/NS RTU 500 MG/100 ML RTUPB IV SCH ×3 (02:01→18:28)
[2018-03-08] MEDS: ACETAMINOPHEN 325 MG TABLET PO PRN ×3 (02:06→21:55)
[2018-03-08] MEDS: HEPARIN SOD (PORCINE) 5,000 UNIT/ML 1 ML SYRINGE SUBCUT SCH ×3 (06:21→21:55)
[2018-03-08] MEDS: POLYETHYLENE GLYCOL 3350 POWDER 17 GM/1 PACKET PO SCH (09:17)
[2018-03-08] MEDS: VALSARTAN 40 MG TABLET PO SCH (09:17)
--- NOTE | 2018-03-08 17:43 | PDOC PROGRESS REPORT ---
Subjective Progress Note for:: 03/08/18 Subjective:: Patient continues to have fairly significant left lower quadrant pain. He took several doses of morphine last night and then did not have any after around bedtime and then this morning his pain was fairly significant again. He does think it is getting some better. Taking minimal sips of water. No chest pain or difficulty breathing. No bowel movement. No dysuria. No fevers or chills. Reason For Visit: ACUTE DIVERTICULITIS Physical Exam Vital Signs: Temp Pulse Resp BP Pulse Ox 98.2 F 64 16 149/83 H 100 03/08/18 15:38 03/08/18 15:38 03/08/18 15:38 03/08/18 15:38 03/08/18 15:38 Intake & Output 03/07/18 03/08/18 03/09/18 06:59 06:59 06:59 Intake Total 5870 3270 1565 Balance 5870 3270 1565 General appearance: PRESENT: no acute distress, cooperative, obese Head exam: PRESENT: atraumatic, normocephalic Eye exam: ABSENT: conjunctival injection, scleral icterus Mouth exam: PRESENT: moist Respiratory exam: PRESENT: clear to auscultation enzo, unlabored. ABSENT: rales , rhonchi, wheezes Cardiovascular exam: PRESENT: RRR. ABSENT: systolic murmur GI/Abdominal exam: PRESENT: hypoactive bowel sounds, rebound - Localized rebound tenderness left lower quadrant, soft, tenderness. ABSENT: distended, firm Gentrourinary exam: ABSENT: indwelling catheter Extremities exam: ABSENT: pedal edema Neurological exam: PRESENT: alert, awake, oriented to person, oriented to place , oriented to situation Psychiatric exam: PRESENT: appropriate affect. ABSENT: anxious Skin exam: PRESENT: dry, intact, warm Results Laboratory Results: 03/07/18 17:15 03/07/18 17:15 03/07/18 17:15 Sodium 138.1 Potassium 4.1 Chloride 105 Carbon Dioxide 30 Anion Gap 3 L BUN 10 Creatinine 0.92 Est GFR ( Amer) > 60 Est GFR (Non-Af Amer) > 60 Glucose 88 Calcium 8.6 Impressions: Abdomen/Pelvis CT 03/05/18 17:41 IMPRESSION: Acute diverticulitis in the distal descending/ proximal sigmoid colon Abnormal retroperitoneal adenopathy with multiple lung parenchymal and pleural- based nodules CT abdomen, similar compared to CT 01/13/2018 Assessment & Plan - Diagnosis (1) Personal history of respiratory system disease Is this a current diagnosis for this admission?: Yes Plan: pt has a systemic disease that he insists i not mention in his medical record. i will relay the information to next physician taking over his care. i expressed to patient that i disagree with his decision and that not mentioning this could impact his medical care negatively, he insists that i do not mention it. he sees a specialist at [facility] twice a year for monitoring. he has lung, abdominal cavity and skin lesions that are all related to the systemic illness, he states awareness of all of the abnormal findings in the CT that i have described to him. it is possible that his LLQ process is related to the systemic illness and that treatment of diverticulitis will not solve the problem. i told him i recommend surgical consult today and he insists that he will call his specialist at [facility] to see what the next steps should be. he is hemodynamically stable and mentating normally, has decisional capacity for complex decisions. (2) Acute diverticulitis Is this a current diagnosis for this admission?: Yes Plan: pt will continue on levaquin and flagyl, he states cipro causes mucosal lesions (during previous treatment for diverticulitis)and he wants to avoid that medication. We discussed that when he starts levaquin po he may have a similar response. cont IV fluids and small sips of water for comfort. if symptoms do not improve we will have to entertainanother diagnosis. CT scan does not show evidence of perforation or abscess. Of note, pt has a systemic disease that he insists I do not name in this medical record. He sees a specialist at [facility] regularly since 2008 and he ias calling his specialist to see if this could be related to his systemic disease. I will pass the information verbally to the next physican taking care of him. (3) Abdominal pain Qualifiers: Abdominal location: left lower quadrant Qualified Code(s): R10.32 - Left lower quadrant pain Is this a current diagnosis for this admission?: Yes Plan: related to left lower quadrant process, please see diverticulitis below. will cont current dose of prn morphine, 2 mg IV q 4 hrs prn severe pain. he also has tylenol available for less severe pain. - Time Time Spent with patient: 25-34 minutes Medications reviewed and adjusted accordingly: Yes - Inpatient Certification Based on my medical assessment, after consideration of the patient's comorbidities, presenting symptoms, or acuity I expect that the services needed warrant INPATIENT care.: Yes I certify that my determination is in accordance with my understanding of Medicare's requirements for reasonable and necessary INPATIENT services [42 CFR 412.3e].: Yes Medical Necessity: Need For IV Fluids, Need for IV Antibiotics
[2018-03-08 18:29] LABS: HEMOGLOBIN 13.9 g/dL (13.5-17.0); MEAN CORPUSCULAR HEMOGLOBIN 30.1 pg (27.0-33.4); MEAN CORPUSCULAR HGB CONC 35.6 g/dL (32.0-36.0); MEAN CORPUSCULAR VOLUME 84 fl (80-97); PLATELET COUNT 183 10^3/uL (150-450); RED BLOOD COUNT 4.62 10^6/uL (4.35-5.55); WHITE BLOOD COUNT 3.7 10^3/uL (4.0-10.5)
[2018-03-08 19:00] LABS: ANION GAP 9 (5-19); BLOOD UREA NITROGEN 9 mg/dL (7-20); CALCIUM 9.2 mg/dL (8.4-10.2); CARBON DIOXIDE 24 mmol/L (22-30); CHLORIDE 105 mmol/L (98-107); GLUCOSE 93 mg/dL (75-110); POTASSIUM 4.3 mmol/L (3.6-5.0); SODIUM 138.4 mmol/L (137-145)
[2018-03-08] MEDS: LEVOFLOXACIN 750 MG/D5W RTU 750 MG/150 ML RTUPB IV SCH (21:51)
[2018-03-08] MEDS: TEMAZEPAM 15 MG CAPSULE PO PRN (21:54)
[2018-03-09] MEDS: METRONIDAZOLE 500 MG/NS RTU 500 MG/100 ML RTUPB IV SCH ×3 (01:22→17:15)
[2018-03-09] MEDS: HEPARIN SOD (PORCINE) 5,000 UNIT/ML 1 ML SYRINGE SUBCUT SCH ×3 (06:04→21:51)
[2018-03-09] MEDS: POLYETHYLENE GLYCOL 3350 POWDER 17 GM/1 PACKET PO SCH (09:39)
[2018-03-09] MEDS: NORMAL SALINE 1000 ML 1,000 ML IV PRN ×2 (09:40→23:19)
[2018-03-09] MEDS: VALSARTAN 40 MG TABLET PO SCH (09:40)
--- NOTE | 2018-03-09 13:58 | PDOC PROGRESS REPORT ---
Subjective Progress Note for:: 03/09/18 Subjective:: 88-year-old white male who failed outpatient antibiotic therapy for diverticulitis. Patient had colonoscopy in May 2017. Developed abdominal pain was treated with p.o. antibiotics however could only tolerate 9 days before stopping. He presented to the hospital with increased abdominal pain. His CT shows thickening of the sigmoid and distal descending colon. His pain has decreased he remains n.p.o. at this time but would like to begin to try to eat. He is afebrile with a normal white count. Reason For Visit: ACUTE DIVERTICULITIS Physical Exam Vital Signs: Temp Pulse Resp BP Pulse Ox 98.3 F 63 22 H 135/77 H 97 03/09/18 08:41 03/09/18 08:41 03/09/18 08:41 03/09/18 08:41 03/09/18 08:41 Intake & Output 03/08/18 03/09/18 03/10/18 06:59 06:59 06:59 Intake Total 3270 3865 Balance 3270 3865 General appearance: PRESENT: no acute distress, well-developed, well-nourished Neck exam: ABSENT: carotid bruit, JVD, lymphadenopathy, thyromegaly Respiratory exam: PRESENT: clear to auscultation enzo. ABSENT: rales, rhonchi, wheezes Cardiovascular exam: PRESENT: RRR. ABSENT: diastolic murmur, rubs, systolic murmur GI/Abdominal exam: PRESENT: normal bowel sounds, rebound, soft, tenderness. ABSENT: distended, guarding, mass, organolmegaly Extremities exam: PRESENT: full ROM. ABSENT: calf tenderness, clubbing, pedal edema Results Laboratory Results: 03/08/18 18:15 03/08/18 18:15 03/08/18 03/08/18 18:15 18:15 WBC 3.7 L RBC 4.62 Hgb 13.9 Hct 39.0 MCV 84 MCH 30.1 MCHC 35.6 RDW 13.0 Plt Count 183 Sodium 138.4 Potassium 4.3 Chloride 105 Carbon Dioxide 24 Anion Gap 9 BUN 9 Creatinine 0.88 Est GFR ( Amer) > 60 Est GFR (Non-Af Amer) > 60 Glucose 93 Calcium 9.2 Impressions: Abdomen/Pelvis CT 03/05/18 17:41 IMPRESSION: Acute diverticulitis in the distal descending/ proximal sigmoid colon Abnormal retroperitoneal adenopathy with multiple lung parenchymal and pleural- based nodules CT abdomen, similar compared to CT 01/13/2018 Assessment & Plan - Diagnosis (1) Acute diverticulitis Is this a current diagnosis for this admission?: Yes Plan: Continue current antibiotics. Patient currently on Levaquin and metronidazole IV we will plan to treat patient for 14 days due to his treatment failure he is currently on day 3 of his IV antibiotics. Will begin full liquid diet (2) Hypertension Qualifiers: Hypertension type: essential hypertension Qualified Code(s): I10 - Essential (primary) hypertension Is this a current diagnosis for this admission?: Yes Plan: Normotensive no change in medication continue to monitor (3) Personal history of respiratory system disease Is this a current diagnosis for this admission?: Yes Plan: Patient with multiple pulmonary nodules and abdominal and mediastinal adenopathy. These are all attributed to his underlying disease followed by Dr. Vivas at [facility]. Patient prefers the disease not be listed in this medical record and his request has been honored. I reached out to Dr. Vivas to discuss his underlying diverticulitis which does not appear to be related to his underlying systemic condition. - Time Time Spent with patient: 25-34 minutes Anticipated discharge: Home
[2018-03-09 15:13] LABS: ANION GAP 7 (5-19); BLOOD UREA NITROGEN 10 mg/dL (7-20); CARBON DIOXIDE 26 mmol/L (22-30); CHLORIDE 104 mmol/L (98-107); GLUCOSE 91 mg/dL (75-110); POTASSIUM 4.1 mmol/L (3.6-5.0); SODIUM 137.4 mmol/L (137-145)
[2018-03-09 15:16] LABS: ABSOLUTE EOSINOPHILS # (AUTO) 0.2 10^3/uL (0.0-0.6); ABSOLUTE LYMPHOCYTES (AUTO) 0.9 10^3/uL (0.5-4.7); ABSOLUTE MONOCYTES (AUTO) 0.3 10^3/uL (0.1-1.4); ABSOLUTE NEUT (AUTO) 1.9 10^3/uL (1.7-8.2); BASOPHILS % (AUTO) 0.8 % (0-2); EOSINOPHILS % (AUTO) 4.8 % (0-6); HEMATOCRIT 38.7 % (37.9-51.0); LYMPHOCYTES % (AUTO) 26.5 % (13-45); MEAN CORPUSCULAR HEMOGLOBIN 30.3 pg (27.0-33.4); MEAN CORPUSCULAR HGB CONC 36.3 g/dL (32.0-36.0); MEAN CORPUSCULAR VOLUME 84 fl (80-97); MONOCYTES % (AUTO) 10.2 % (3-13); PLATELET COUNT 193 10^3/uL (150-450); RED BLOOD COUNT 4.63 10^6/uL (4.35-5.55); RED CELL DISTRIBUTION WIDTH 13.1 % (11.5-14.0); SEGMENTED NEUTROPHILS % (AUTO) 57.7 % (42-78); TOTAL CELLS COUNTED % (AUTO) 100 %; WHITE BLOOD COUNT 3.3 10^3/uL (4.0-10.5)
[2018-03-09] MEDS ORDERED: ONDANSETRON HCL INJ/PF 4 MG/2 ML SDV IV PRN (15:30)
[2018-03-09] MEDS: TEMAZEPAM 15 MG CAPSULE PO PRN (21:51)
[2018-03-09] MEDS: LEVOFLOXACIN 750 MG/D5W RTU 750 MG/150 ML RTUPB IV SCH (21:51)
[2018-03-10] MEDS ORDERED: METRONIDAZOLE 500 MG/NS RTU 500 MG/100 ML RTUPB IV ONE (01:27)
[2018-03-10] MEDS: METRONIDAZOLE 500 MG/NS RTU 500 MG/100 ML RTUPB IV SCH ×3 (01:31→21:51)
[2018-03-10] MEDS: ACETAMINOPHEN 325 MG TABLET PO PRN ×4 (01:54→23:56)
[2018-03-10] MEDS: HEPARIN SOD (PORCINE) 5,000 UNIT/ML 1 ML SYRINGE SUBCUT SCH ×3 (05:25→23:57)
[2018-03-10] MEDS ORDERED: CYCLOBENZAPRINE HCL 10 MG TABLET PO ONE (09:30)
[2018-03-10] MEDS: POLYETHYLENE GLYCOL 3350 POWDER 17 GM/1 PACKET PO SCH (09:59)
[2018-03-10] MEDS: VALSARTAN 40 MG TABLET PO SCH (09:59)
--- NOTE | 2018-03-10 11:19 | PDOC PROGRESS REPORT ---
Subjective Progress Note for:: 03/10/18 Subjective:: Patient with complaint of neck stiffness from sleeping in an odd position due to his using Ambien for sleep. His abdominal pain is slightly improved. He is tolerating a full liquid diet no nausea. His IV came out and he is requesting that not another one be started. He did fail p.o. antibiotics and will require 9 additional days of antibiotic therapy. Reason For Visit: ACUTE DIVERTICULITIS Physical Exam Vital Signs: Temp Pulse Resp BP Pulse Ox 97.8 F 62 18 139/79 H 98 03/10/18 07:30 03/10/18 07:30 03/10/18 07:30 03/10/18 07:30 03/10/18 07:30 Intake & Output 03/09/18 03/10/18 03/11/18 06:59 06:59 06:59 Intake Total 4015 1850 Balance 4015 1850 Weight 99.8 kg General appearance: PRESENT: no acute distress Eye exam: PRESENT: conjunctiva pink, EOMI, PERRLA. ABSENT: scleral icterus Neck exam: ABSENT: carotid bruit, JVD, lymphadenopathy, thyromegaly Respiratory exam: PRESENT: clear to auscultation enzo. ABSENT: rales, rhonchi, wheezes Cardiovascular exam: PRESENT: RRR. ABSENT: diastolic murmur, rubs, systolic murmur GI/Abdominal exam: PRESENT: normal bowel sounds, rebound - Lower quadrant, soft , tenderness - Left lower quadrant. ABSENT: distended, guarding, mass, organolmegaly Extremities exam: PRESENT: full ROM. ABSENT: calf tenderness, clubbing, pedal edema Results Laboratory Results: 03/09/18 14:43 03/09/18 14:43 03/09/18 03/09/18 03/10/18 14:43 14:43 06:57 WBC 3.3 L RBC 4.63 Hgb 14.0 Hct 38.7 MCV 84 MCH 30.3 MCHC 36.3 H RDW 13.1 Plt Count 193 Seg Neutrophils % 57.7 Lymphocytes % 26.5 Monocytes % 10.2 Eosinophils % 4.8 Basophils % 0.8 Absolute Neutrophils 1.9 Absolute Lymphocytes 0.9 Absolute Monocytes 0.3 Absolute Eosinophils 0.2 Absolute Basophils 0.0 Sodium 137.4 Potassium 4.1 Chloride 104 Carbon Dioxide 26 Anion Gap 7 BUN 10 Creatinine 0.87 Est GFR ( Amer) > 60 Est GFR (Non-Af Amer) > 60 Glucose 91 Calcium 9.0 Magnesium 1.7 Impressions: Abdomen/Pelvis CT 03/05/18 17:41 IMPRESSION: Acute diverticulitis in the distal descending/ proximal sigmoid colon Abnormal retroperitoneal adenopathy with multiple lung parenchymal and pleural- based nodules CT abdomen, similar compared to CT 01/13/2018 Assessment & Plan - Diagnosis (1) Acute diverticulitis Is this a current diagnosis for this admission?: Yes Plan: We will plan to place PICC line. Have asked case management to see if home health can be arranged for home IV therapy for an additional 9 days. Advance diet to GI soft (2) Hypertension Qualifiers: Hypertension type: essential hypertension Qualified Code(s): I10 - Essential (primary) hypertension Is this a current diagnosis for this admission?: Yes Plan: Normotensive continue medicines continue to monitor. (3) Personal history of respiratory system disease Is this a current diagnosis for this admission?: Yes - Time Time Spent with patient: 25-34 minutes Anticipated discharge: Home with Homehealth
--- NOTE | 2018-03-10 14:04 | RADIOLOGY REPORT (SQ) ---
EXAM DESCRIPTION: PICC INSERTION; FLUORO/CV PLACEMENT; U/S GUIDE FOR VASCULAR ACCESS COMPLETED DATE/TIME: 03/10/2018 1:39 pm REASON FOR STUDY: IV access antibiotics for over 10 days; IV ABX COMPARISON: None. FLUOROSCOPY TIME: 16 seconds. 1 images saved to PACS. TECHNIQUE: Fluoroscopic and ultrasound guided PICC placement. LIMITATIONS: None. PROCEDURE: After written consent and assessment were obtained, the patient was brought into the fluo roscopy room and placed supine on the table. Ultrasound evaluation of potential access sites were per formed. After successfully identifying a patent left basilic vein, the left arm was prepped and drape d in a sterile fashion along with the ultrasound probe. The entry site was anesthetized with 1% lidoc mattehw. A 21 gauge 7 cm needle was advanced through the skin and into the basilic vein under live ultra sound guidance. An ultrasound image was saved to PACS confirming access site. A .018 guide wire was then inserted through the needle and into the venous system. The needle was then removed and an 11 b lade scalpel was used to make a 1cm skin incision. A 5 fr peel-away sheath was advanced over the wir e and into the venous system. A measurement was then made using the existing wire and live fluoroscop ic guidance. The wire was then removed and trimmed. The PICC was advanced through the peel-away sheat h and into the venous system. The peel-away sheath was removed and the catheter was adhered to the pa tients arm with a stat lock. The catheter was then aspirated and flushed and a sterile bandage was pl aced over the access site. A fluoroscopic spot image was saved to PACS confirming the catheter tip w ithin the superior vena cava. IMPRESSION: SUCCESSFUL PLACEMENT OF A 5 FR DUAL LUMEN 42 CM PICC IN THE LEFT BASILIC VEIN. COMMENT: Patient medication list reviewed: Yes- Quality ID# 130:Eligible professional attests to doc umenting in the medical record they obtained, updated, or reviewed the patient's current medications. . Quality ID 145: Final reports for procedures using fluoroscopy that document radiation exposure rene annie, or exposure time and number of fluorographic images (if radiation exposure indices are not avail able) Quality ID #76: The patient was prepped and draped using maximum sterile barrier technique including cap, mask, sterile gown, sterile gloves, a large sterile sheet, hand hygiene, and 2% Chlorhexidine fo r cutaneous antisepsis. When ultrasound is used, sterile ultrasound techniques are followed requiring sterile gel and sterile probes. TECHNICAL DOCUMENTATION: JOB ID: [id number] [employer]- All Rights Reserved rev-10/28 Reading location - IP/workstation name: [facility]
--- NOTE | 2018-03-10 14:04 | RADIOLOGY REPORT (SQ) ---
EXAM DESCRIPTION: PICC INSERTION; FLUORO/CV PLACEMENT; U/S GUIDE FOR VASCULAR ACCESS COMPLETED DATE/TIME: 03/10/2018 1:39 pm REASON FOR STUDY: IV access antibiotics for over 10 days; IV ABX COMPARISON: None. FLUOROSCOPY TIME: 16 seconds. 1 images saved to PACS. TECHNIQUE: Fluoroscopic and ultrasound guided PICC placement. LIMITATIONS: None. PROCEDURE: After written consent and assessment were obtained, the patient was brought into the fluo roscopy room and placed supine on the table. Ultrasound evaluation of potential access sites were per formed. After successfully identifying a patent left basilic vein, the left arm was prepped and drape d in a sterile fashion along with the ultrasound probe. The entry site was anesthetized with 1% lidoc matthew. A 21 gauge 7 cm needle was advanced through the skin and into the basilic vein under live ultra sound guidance. An ultrasound image was saved to PACS confirming access site. A .018 guide wire was then inserted through the needle and into the venous system. The needle was then removed and an 11 b lade scalpel was used to make a 1cm skin incision. A 5 fr peel-away sheath was advanced over the wir e and into the venous system. A measurement was then made using the existing wire and live fluoroscop ic guidance. The wire was then removed and trimmed. The PICC was advanced through the peel-away sheat h and into the venous system. The peel-away sheath was removed and the catheter was adhered to the pa tients arm with a stat lock. The catheter was then aspirated and flushed and a sterile bandage was pl aced over the access site. A fluoroscopic spot image was saved to PACS confirming the catheter tip w ithin the superior vena cava. IMPRESSION: SUCCESSFUL PLACEMENT OF A 5 FR DUAL LUMEN 42 CM PICC IN THE LEFT BASILIC VEIN. COMMENT: Patient medication list reviewed: Yes- Quality ID# 130:Eligible professional attests to doc umenting in the medical record they obtained, updated, or reviewed the patient's current medications. . Quality ID 145: Final reports for procedures using fluoroscopy that document radiation exposure rene annie, or exposure time and number of fluorographic images (if radiation exposure indices are not avail able) Quality ID #76: The patient was prepped and draped using maximum sterile barrier technique including cap, mask, sterile gown, sterile gloves, a large sterile sheet, hand hygiene, and 2% Chlorhexidine fo r cutaneous antisepsis. When ultrasound is used, sterile ultrasound techniques are followed requiring sterile gel and sterile probes. TECHNICAL DOCUMENTATION: JOB ID: [id number] [employer]- All Rights Reserved rev-10/28 Reading location - IP/workstation name: [email or web address]
[2018-03-10] MEDS ORDERED: NORMAL SALINE 10 ML SDV (AFTER EACH USE) IV PRN (14:11)
[2018-03-10] MEDS: CYCLOBENZAPRINE HCL 10 MG TABLET PO PRN (21:50)
[2018-03-10] MEDS: LEVOFLOXACIN 750 MG/D5W RTU 750 MG/150 ML RTUPB IV SCH (21:51)
[2018-03-11] MEDS: CYCLOBENZAPRINE HCL 10 MG TABLET PO PRN (06:56)
[2018-03-11] MEDS: METRONIDAZOLE 500 MG/NS RTU 500 MG/100 ML RTUPB IV SCH (06:59)
[2018-03-11] MEDS: NORMAL SALINE 10 ML SDV (SCHEDULED) IV SCH ×2 (09:29→09:46)
[2018-03-11] MEDS: POLYETHYLENE GLYCOL 3350 POWDER 17 GM/1 PACKET PO SCH (09:31)
[2018-03-11] MEDS: VALSARTAN 40 MG TABLET PO SCH (09:31)
[2018-03-11] MEDS: HEPARIN SOD (PORCINE) 5,000 UNIT/ML 1 ML SYRINGE SUBCUT SCH (09:31)
--- NOTE | 2018-03-11 12:13 | PDOC DISCHARGE SUMMARY ---
General - Admit/Disc Date/PCP Admission Date/Primary Care Provider: 03/05/18 22:57 Discharge Date: 03/11/18 - Discharge Diagnosis (1) Acute diverticulitis Is this a current diagnosis for this admission?: Yes Summary: Patient received 14 days of IV antibiotics. Discharged on Levaquin 750 IV daily and metronidazole 500 every 8 hours. Patient to complete his course of therapy on 03/20/2018 (2) Hypertension Is this a current diagnosis for this admission?: Yes (3) Personal history of respiratory system disease Is this a current diagnosis for this admission?: Yes - Additional Information Resuscitation Status: Full Code Discharge Diet: Other (Comments) - Denies soft low residue Discharge Activity: Activity As Tolerated Prescriptions: Hydrocodone/Acetaminophen [Hydrocodon-Acetaminophen 5-325] 1 each PO Q6HP PRN # 14 tablet PRN Reason: For Pain Scale 3-5 Levofloxacin 500 mg/D5w RTU [Levaquin RTU 500Mg/D5w 100 ml Premix Bag] 750 mg IV DAILY 9 Days rtupb Metronidazole 500 mg/Ns RTU [Flagyl RTU 500 mg/Ns 100Ml Premix] 500 mg IV Q8 9 Days ml Home Medications: Metoprolol Succinate [Toprol Xl 25 mg Tab.sr] 25 mg PO DAILY 03/06/18 Olmesartan Medoxomil [Benicar] 20 mg PO QAM 03/06/18 Levofloxacin 500 mg/D5w RTU [Levaquin RTU 500Mg/D5w 100 ml Premix Bag] 750 mg IV DAILY 9 Days rtupb 03/10/18 Metronidazole 500 mg/Ns RTU [Flagyl RTU 500 mg/Ns 100Ml Premix] 500 mg IV Q8 9 Days ml 03/10/18 Hydrocodone/Acetaminophen [Hydrocodon-Acetaminophen 5-325] 1 each PO Q6HP PRN # 14 tablet 03/11/18 Polyethylene Glycol 3350 [Miralax Powder 17 gm/Packet] 17 gm PO DAILY powd.pack 03/11/18 Simethicone [Mylicon 80 mg Chewable Tablet] 80 mg PO QIDP PRN tab.chew History of Present Illness History of Present Illness: CRISTOABL CHING is a 58 year old male who declined to talk to me and did not let me examine him, tells me if "this is a joke" that I have to ask him questions again and do another physical exam. I am gathering the information from the ED attending notes. States that he has had abdominal pain to the lower abdominal region for 1 year. In May he saw the chiropractic doctor, Dr. Pineda, and had a colonoscopy and endoscopy that was unremarkable except for some diverticuli. Patient states he then followed up again in December given the constant pain and had a CT scan that was supposedly also unremarkable. Patient was still started however on ciprofloxacin and Flagyl. He states he felt better for only 1 week. Patient states he again has had this recurrence of pain since that time. He states it is intermittent. He states it is to the level suprapubic region. He denies any nausea, vomiting, fevers, or diarrhea. He actually states he has some trouble with constipation. He denies any testicular pain, penile lesions, or dysuria. CT abdomen and pelvis shows acute diverticulitis in the distal descending and proximal sigmoid colon. Hospital Course Hospital Course: Patient was admitted to medical floor and started on IV Levaquin and metronidazole. Patient had completed an outpatient course of 9 days before the metronidazole because nausea. His CT showed significant inflammation of the distal descending colon and proximal sigmoid. Patient was placed on clear liquids his pain improved. A PICC line was placed and arrangements were made for patient to complete his course of therapy at home with home health providing support for the home infusion. He is to finish his antibiotics on 03/20/2018. Is recommended he follow-up with his primary care physician prior to that date. Should patient have recurrence then repeat endoscopy or surgery may be indicated and he is aware of this. He was discharged on a low residue GI soft diet. Physical Exam Vital Signs: Temp Pulse Resp BP Pulse Ox 98.1 F 64 18 124/76 97 03/11/18 07:29 03/11/18 07:29 03/11/18 07:29 03/11/18 07:29 03/11/18 07:29 Intake & Output 03/10/18 03/11/18 03/12/18 06:59 06:59 06:59 Intake Total 1850 350 100 Balance 1850 350 100 Weight 99.8 kg 98.6 kg General appearance: PRESENT: no acute distress, well-developed, well-nourished Neck exam: ABSENT: carotid bruit, JVD, lymphadenopathy, thyromegaly Respiratory exam: PRESENT: clear to auscultation enzo. ABSENT: rales, rhonchi, wheezes Cardiovascular exam: PRESENT: RRR. ABSENT: diastolic murmur, rubs, systolic murmur Pulses: PRESENT: normal dorsalis pedis pul GI/Abdominal exam: PRESENT: normal bowel sounds, soft, tenderness - Eft lower quadrant. ABSENT: distended, guarding, mass, organolmegaly, rebound Extremities exam: PRESENT: full ROM. ABSENT: calf tenderness, clubbing, pedal edema Results Laboratory Results: 03/09/18 14:43 03/09/18 14:43 03/06/18 03:48 Blood Blood Culture - Final NO GROWTH IN 5 DAYS 03/06/18 01:08 Blood Blood Culture - Final NO GROWTH IN 5 DAYS Impressions: Abdomen/Pelvis CT 03/05/18 17:41 IMPRESSION: Acute diverticulitis in the distal descending/ proximal sigmoid colon Abnormal retroperitoneal adenopathy with multiple lung parenchymal and pleural- based nodules CT abdomen, similar compared to CT 01/13/2018 Guidance Fluoroscopy 03/10/18 00:00 IMPRESSION: SUCCESSFUL PLACEMENT OF A 5 FR DUAL LUMEN 42 CM PICC IN THE LEFT BASILIC VEIN. Interventional Vascular Procedure 03/10/18 00:00 IMPRESSION: SUCCESSFUL PLACEMENT OF A 5 FR DUAL LUMEN 42 CM PICC IN THE LEFT BASILIC VEIN. PICC Line Insertion 03/10/18 00:00 IMPRESSION: SUCCESSFUL PLACEMENT OF A 5 FR DUAL LUMEN 42 CM PICC IN THE LEFT BASILIC VEIN. Qualifiers - * PATIENT BEING DISCHARGED WITH ANY OF THE FOLLOWING DIAGNOSIS: No Plan Time Spent: Greater than 30 Minutes
[2018-03-11 12:23] VITALS: BP 115/57
== END 2018-03-11 13:46 | disposition home health service (06) | DRG 392 ==
LOC: ER 12:06 → EH 22:57 → 2N 03-06 06:26
PROVIDERS: ADMIT Internal Medicine; ATTEND Internal Medicine
PROC: 02HV33Z Insertion of Infusion Device into Superior Vena Cava, Percutaneous Approach (ICD-10-PCS; principal; 2018-03-10)
PROC: B518ZZA Fluoroscopy of Superior Vena Cava, Guidance (ICD-10-PCS; 2018-03-10)
PROC: B548ZZA Ultrasonography of Superior Vena Cava, Guidance (ICD-10-PCS; 2018-03-10)
DX: K57.92 Diverticulitis of intestine, part unspecified, without perforation or abscess without bleeding (principal); I10 Essential (primary) hypertension; R91.8 Other nonspecific abnormal finding of lung field; J98.9 Respiratory disorder, unspecified; Z79.51 Long term (current) use of inhaled steroids; Z79.52 Long term (current) use of systemic steroids; Z79.899 Other long term (current) drug therapy
CPT/HCPCS: 36415; 36569; 74177; 76937; 77001; 80048; 80053; 81001; 82272; 83605; 83690; 83735; 85025; 85027; 87040; 94799; 96361; 96374; 96375; 96376; 99285; J0744; J1642; J1644; J1956; J2270; J2405; J2550; J3490; S0164

== ENCOUNTER → 2018-04-05 | Outpatient (CLI) | payer BC ==
[2018-04-05 17:49] LABS: ABSOLUTE EOSINOPHILS # (AUTO) 0.3 10^3/uL (0.0-0.6); ABSOLUTE LYMPHOCYTES (AUTO) 1.6 10^3/uL (0.5-4.7); ABSOLUTE MONOCYTES (AUTO) 0.4 10^3/uL (0.1-1.4); ABSOLUTE NEUT (AUTO) 2.3 10^3/uL (1.7-8.2); BASOPHILS % (AUTO) 0.9 % (0-2); EOSINOPHILS % (AUTO) 5.8 % (0-6); HEMATOCRIT 41.7 % (37.9-51.0); HEMOGLOBIN 14.6 g/dL (13.5-17.0); LYMPHOCYTES % (AUTO) 33.6 % (13-45); MEAN CORPUSCULAR HEMOGLOBIN 30.2 pg (27.0-33.4); MEAN CORPUSCULAR HGB CONC 35.1 g/dL (32.0-36.0); MEAN CORPUSCULAR VOLUME 86 fl (80-97); MONOCYTES % (AUTO) 9.6 % (3-13); PLATELET COUNT 194 10^3/uL (150-450); RED BLOOD COUNT 4.85 10^6/uL (4.35-5.55); RED CELL DISTRIBUTION WIDTH 13.8 % (11.5-14.0); SEGMENTED NEUTROPHILS % (AUTO) 50.1 % (42-78); TOTAL CELLS COUNTED % (AUTO) 100 %; WHITE BLOOD COUNT 4.6 10^3/uL (4.0-10.5)
[2018-04-05 17:51] LABS: APPEARANCE,URINE SLIGHTLY-CLOUDY; BILIRUBIN,URINE NEGATIVE (NEGATIVE); COLOR,URINE YELLOW; GLUCOSE, URINE NEGATIVE (NEGATIVE); KETONES,URINE NEGATIVE (NEGATIVE); LEUKOCYTE ESTERASE,URINE NEGATIVE (NEGATIVE); NITRITE,URINE NEGATIVE (NEGATIVE); PROTEIN,URINE NEGATIVE (NEGATIVE); URINE SPECIFIC GRAVITY 1.015; UROBILINOGEN,URINE NEGATIVE mg/dL (<2.0)
[2018-04-05 18:22] LABS: ANION GAP 12 (5-19); BLOOD UREA NITROGEN 15 mg/dL (7-20); CALCIUM 9.6 mg/dL (8.4-10.2); CARBON DIOXIDE 30 mmol/L (22-30); CHLORIDE 100 mmol/L (98-107); GLUCOSE 137 mg/dL (75-110); POTASSIUM 4.4 mmol/L (3.6-5.0); SODIUM 141.8 mmol/L (137-145)
== END ==
LOC: LAB 17:36
PROVIDERS: ATTEND Internal Medicine Gastroenterology
DX: K57.30 Diverticulosis of large intestine without perforation or abscess without bleeding (principal); R10.32 Left lower quadrant pain
CPT/HCPCS: 36415; 80048; 81001; 85025

== ENCOUNTER → 2018-04-06 | Outpatient (CLI) | payer BC ==
--- NOTE | 2018-04-06 09:02 | RADIOLOGY REPORT (SQ) ---
EXAM DESCRIPTION: CT ABD/PELVIS WITH IV ORAL COMPLETED DATE/TIME: 04/06/2018 8:11 am REASON FOR STUDY: LLQ PAIN/DIVERTICULOSIS W/ HEMATURIA K57.30 DVRTCLOS OF LG INT W/O PERFORATION OR ABSCESS W/O BLE R10.32 LEFT LOWER QUADRANT PAIN COMPARISON: CT abdomen pelvis 03/05/2018, 01/13/2018 TECHNIQUE: CT scan of the abdomen and pelvis performed using helical scanning technique with dynamic intravenous contrast injection. Patient drank oral contrast. Images reviewed with lung, soft tissue , and bone windows. Reconstructed coronal and sagittal MPR images reviewed. Delayed images for evalua tion of the urinary system also acquired. All images stored on PACS. All CT scanners at this facility use dose modulation, iterative reconstruction, and/or weight based d osing when appropriate to reduce radiation dose to as low as reasonably achievable (ALARA). [facility]: Dose Right [facility]: CareDose [facility]: Dose Right [facility]: Teradose 4D [facility]: [place] CONTRAST TYPE AND DOSE: contrast/concentration: Isovue 350.00 mg/ml; Total Contrast Delivered: 100.0 ml; Total Saline Delivered: 72.0 ml RENAL FUNCTION: Creatinine 0.97 RADIATION DOSE: CT Rad equipment meets quality standard of care and radiation dose reduction techniq ues were employed. CTDIvol: 16.3 - 18.6 mGy. DLP: 1814 mGy-cm.. LIMITATIONS: None. FINDINGS: LOWER CHEST: There are multiple subcentimeter nodules along the right and left pleura. Th hans are abnormal but nonspecific and are unchanged compared to 03/05/2018 and 01/13/2018. No acute infi ltrates. No pleural effusions. LIVER: Normal size. No masses. No dilated ducts. SPLEEN: Normal size. No focal lesions. PANCREAS: No masses. No significant calcifications. No adjacent inflammation or peripancreatic fluid collections. Pancreatic duct not dilated. GALLBLADDER: No identified stones by CT criteria. No inflammatory changes to suggest cholecystitis. ADRENAL GLANDS: No significant masses or asymmetry. RIGHT KIDNEY AND URETER: No solid masses. No significant calcifications. No hydronephrosis or hyd roureter. LEFT KIDNEY AND URETER: No solid masses. 2 cm left renal cortical cyst No significant calcifications . No hydronephrosis or hydroureter. AORTA AND VESSELS: No aneurysm. No dissection. Renal arteries, SMA, celiac without stenosis. RETROPERITONEUM: Too numerous to count small 1 to 2 cm lymph nodes are present in the retroperitoneum from the celiac region through the iliac bifurcation. These are nonspecific and unchanged from prio r studies, best shown on coronal reconstruction images 53-66. BOWEL AND PERITONEAL CAVITY: Patient drank oral contrast. There is a 10 cm long segment of mild colo n wall thickening, luminal narrowing and adjacent inflammation along the distal descending and proxim al sigmoid colon best shown on coronal images 37-44. No abscess. No free air. No free fluid. APPENDIX: Surgically absent PELVIS: No mass. No free fluid. Normal bladder. ABDOMINAL WALL: No masses. No hernias. BONES: No significant or acute findings. OTHER: No other significant finding. IMPRESSION: Mild inflammation along the distal descending/ proximal sigmoid colon in an area of mode rate diverticulosis. Nonspecific retroperitoneal adenopathy Multiple postinflammatory pleural nodules are present TECHNICAL DOCUMENTATION: JOB ID: [id number] Quality ID # [id number]: Final reports with documentation of one or more dose reduction techniques (e.g., Au tomated exposure control, adjustment of the mA and/or kV according to patient size, use of iterative reconstruction technique) 2010 [employer]- All Rights Reserved Reading location - IP/workstation name: [email or web address]
== END ==
LOC: RAD 07:32
PROVIDERS: ATTEND Internal Medicine Gastroenterology
DX: K57.30 Diverticulosis of large intestine without perforation or abscess without bleeding (principal); R10.32 Left lower quadrant pain
CPT/HCPCS: 74177

== ENCOUNTER 2018-04-29 06:43 | Inpatient (IN) | payer BC ==
[2018-04-29] MEDS ORDERED: NORMAL SALINE 1000 ML 1,000 ML IV ONE ×2 (07:08→09:42)
[2018-04-29] MEDS ORDERED: DICYCLOMINE HCL INJ 20 MG/2 ML AMPULE IM ONE (07:09)
[2018-04-29] MEDS ORDERED: ONDANSETRON 4 MG TAB.RAPDIS PO ONE (07:09)
--- NOTE | 2018-04-29 07:42 | ER Document Report ---
ED General - General Chief Complaint: Flank Pain Stated Complaint: FLANK PAIN Time Seen by Provider: 04/29/18 07:08 TRAVEL OUTSIDE OF THE [place] IN LAST 30 DAYS: No - HPI Patient complains to provider of: Abdominal pain Notes: Patient coming in for evaluation of abdominal pain. Patient has a significant history for diverticulitis diverticulosis in the past with retroperitoneal lymphadenopathy found on multiple CAT scans. Patient states pain started yesterday early last night. Patient states slightly nauseous no vomiting no diarrhea small bowel movement yesterday no bowel movement earlier this morning. Patient states pain is in the center of his abdomen underneath the bellybutton and also is causing some difficulty in urination. Patient states has taken hydrocodone 2 tablets yesterday 1 tablet a day. Patient states recently finished antibiotics yesterday for acute flare of diverticulitis Levaquin and Flagyl. Patient otherwise denies any fevers chills night sweats. Patient does have a surgical history of appendectomy otherwise patient looks nontoxic upon my evaluation. Pain exacerbated by movement and touch denies any relieving factors. A review of the patient's past visits and data available in our electronic EMR was performed. - Related Data Allergies/Adverse Reactions: Penicillins Allergy (Severe, Verified 04/29/18 08:10) tetracycline [Tetracycline] Allergy (Intermediate, Verified 04/29/18 08:10) codeine [Codeine] Adverse Reaction (Intermediate, Verified 04/29/18 08:10) Nausea Past Medical History - Social History Smoking Status: Unknown if Ever Smoked Family History: Reviewed & Not Pertinent - Past Medical History Cardiac Medical History: Reports: Hx Hypertension - MEDICATED Denies: Hx Heart Attack Pulmonary Medical History: Denies: Hx Asthma Neurological Medical History: Denies: Hx Cerebrovascular Accident, Hx Seizures Renal/ Medical History: Denies: Hx Peritoneal Dialysis GI Medical History: Denies: Hx Hepatitis, Hx Hiatal Hernia, Hx Ulcer Psychiatric Medical History: Denies: Hx Depression Infectious Medical History: Denies: Hx Hepatitis Past Surgical History: Reports: Hx Appendectomy, Hx Neurologic Surgery - Removal of benign brain tumor. Denies: Hx Open Heart Surgery, Hx Pacemaker Review of Systems - Review of Systems Constitutional: No symptoms reported EENT: No symptoms reported Cardiovascular: No symptoms reported Respiratory: No symptoms reported Gastrointestinal: Abdominal pain Genitourinary: No symptoms reported Male Genitourinary: No symptoms reported Musculoskeletal: No symptoms reported Skin: No symptoms reported Hematologic/Lymphatic: No symptoms reported Neurological/Psychological: No symptoms reported -: Yes All other systems reviewed and negative Physical Exam - Vital signs Vitals: Temp Pulse Resp BP Pulse Ox 97.8 F 71 18 108/66 97 04/29/18 06:48 04/29/18 06:48 04/29/18 06:48 04/29/18 06:48 04/29/18 06:48 Interpretation: Normal - General General appearance: Appears well, Alert - HEENT Head: Normocephalic, Atraumatic Eyes: Normal Pupils: PERRL - Respiratory Respiratory status: No respiratory distress Chest status: Nontender Breath sounds: Normal Chest palpation: Normal - Cardiovascular Rhythm: Regular Heart sounds: Normal auscultation Murmur: No - Abdominal Inspection: Normal Distension: No distension Bowel sounds: Hypoactive Tenderness: Tender - Diffuse tenderness to touch inconsistent as far as quadrant tenderness. Patient upon palpation to the upper quadrant with no tenderness upon reevaluation during examination the right upper quadrant will be tender. No distention or bloating there is rebound bowel sounds are hypoactive voluntary guarding of the abdomen Organomegaly: No organomegaly - Back Back: Normal, Nontender - Extremities General upper extremity: Normal inspection, Nontender, Normal color, Normal ROM , Normal temperature General lower extremity: Normal inspection, Nontender, Normal color, Normal ROM , Normal temperature, Normal weight bearing. No: Cheryl's sign - Neurological Neuro grossly intact: Yes Cognition: Normal Orientation: AAOx4 Roberto Coma Scale Eye Opening: Spontaneous [place] Coma Scale Verbal: Oriented [place] Coma Scale Motor: Obeys Commands Roberto Coma Scale Total: 15 Speech: Normal Motor strength normal: LUE, RUE, LLE, RLE Sensory: Normal - Psychological Associated symptoms: Normal affect, Normal mood - Skin Skin Temperature: Warm Skin Moisture: Dry Skin Color: Normal Course - Re-evaluation Re-evalutation: 04/29/18 07:41 Patient coming in for evaluation of abdominal pain with significant history this diverticulitis. Patient recently on a treatment course of antibiotics for acute diverticulitis now having midline pain dysuria. Will check urinalysis. Patient with diffuse abdominal pain is related consistent possibility of abscess or peripheral diverticula will be assessed with a CT scan with IV contrast. Urinalysis will also be obtained. With the patient's history of hydrocodone and small bowel movement inflammation is more likely pain is due to possible constipation this will also be evaluated with a CAT scan. Otherwise patient looks nontoxic at this time will give Bentyl for pain as patient took hydrocodone just prior to arrival also Zofran IV fluids will be given to 04/29/18 14:44 CAT scans showed continued inflammation possibly worse since February visit. Discussed the case with the patient patient states his been on oral antibiotics multiple times as I think that they are doing any good requests admission nothing this is unreasonable discussed with Dr. Landa who agrees with admission at this time. Did discuss with the patient that because of his recurrent episodes that there is a chance that he may require surgery for his underlying condition. Patient states understanding. Admitted to the hospitalist service stable condition - Vital Signs Vital signs: Temp Pulse Resp BP Pulse Ox 98.7 F 54 L 18 94/57 L 96 04/29/18 12:26 04/29/18 12:26 04/29/18 12:26 04/29/18 12:26 04/29/18 12:26 - Laboratory Result Diagrams: 04/29/18 07:36 04/29/18 07:36 Laboratory results interpreted by me: 04/29/18 04/29/18 07:36 07:36 Seg Neutrophils % 81.3 H Lymphocytes % 10.9 L Sodium 133.6 L Glucose 127 H Total Protein 5.6 L Albumin 3.4 L Discharge - Discharge Clinical Impression: Diverticulitis Condition: Good Disposition: ADMITTED INPATIENT Admitting Provider: [facility]ist [facility] Unit Admitted: Medical Floor
[2018-04-29 07:55] LABS: ABSOLUTE MONOCYTES (AUTO) 0.6 10^3/uL (0.1-1.4); ABSOLUTE NEUT (AUTO) 7.3 10^3/uL (1.7-8.2); BASOPHILS % (AUTO) 0.2 % (0-2); EOSINOPHILS % (AUTO) 0.5 % (0-6); HEMATOCRIT 41.2 % (37.9-51.0); HEMOGLOBIN 14.7 g/dL (13.5-17.0); LYMPHOCYTES % (AUTO) 10.9 % (13-45); MEAN CORPUSCULAR HEMOGLOBIN 30.4 pg (27.0-33.4); MEAN CORPUSCULAR HGB CONC 35.6 g/dL (32.0-36.0); MEAN CORPUSCULAR VOLUME 86 fl (80-97); MONOCYTES % (AUTO) 7.1 % (3-13); PLATELET COUNT 183 10^3/uL (150-450); RED BLOOD COUNT 4.83 10^6/uL (4.35-5.55); RED CELL DISTRIBUTION WIDTH 13.9 % (11.5-14.0); SEGMENTED NEUTROPHILS % (AUTO) 81.3 % (42-78); TOTAL CELLS COUNTED % (AUTO) 100 %
[2018-04-29 08:08] LABS: ALANINE AMINOTRANSFERASE 26 U/L (21-72); ALBUMIN 3.4 g/dL (3.5-5.0); ALKALINE PHOSPHATASE 51 U/L (38-126); ANION GAP 8 (5-19); ASPARTATE AMINO TRANSFERASE 18 U/L (17-59); BILIRUBIN,DIRECT 0.1 mg/dL (0.0-0.4); BILIRUBIN,TOTAL 1.3 mg/dL (0.2-1.3); BLOOD UREA NITROGEN 15 mg/dL (7-20); CALCIUM 8.9 mg/dL (8.4-10.2); CARBON DIOXIDE 26 mmol/L (22-30); CHLORIDE 100 mmol/L (98-107); GLUCOSE 127 mg/dL (75-110); POTASSIUM 3.9 mmol/L (3.6-5.0); SODIUM 133.6 mmol/L (137-145); TOTAL PROTEIN 5.6 g/dL (6.3-8.2)
--- NOTE | 2018-04-29 09:09 | RADIOLOGY REPORT (SQ) ---
EXAM DESCRIPTION: CT ABD/PELVIS WITH IV ONLY COMPLETED DATE/TIME: 04/29/2018 8:37 am REASON FOR STUDY: diffuse abd pain hx of diverticulosis COMPARISON: 03/05/2018 TECHNIQUE: CT scan of the abdomen and pelvis performed using helical scanning technique with dynamic intravenous contrast injection. No oral contrast. Images reviewed with lung, soft tissue, and bone windows. Reconstructed coronal and sagittal MPR images reviewed. Delayed images for evaluation of the urinary system also acquired. All images stored on PACS. All CT scanners at this facility use dose modulation, iterative reconstruction, and/or weight based d osing when appropriate to reduce radiation dose to as low as reasonably achievable (ALARA). [facility]: Dose Right [facility]: CareDose [facility]: Dose Right [facility]: Teradose 4D [facility]: wumo CONTRAST TYPE AND DOSE: contrast/concentration: Isovue 350.00 mg/ml; Total Contrast Delivered: 100.0 ml; Total Saline Delivered: 72.0 ml RENAL FUNCTION: GFR > 60. RADIATION DOSE: CT Rad equipment meets quality standard of care and radiation dose reduction techniq ues were employed. CTDIvol: 16.4 - 19.8 mGy. DLP: 2090 mGy-cm.. LIMITATIONS: None. FINDINGS: LOWER CHEST: Numerous redemonstrated, predominantly pleural-based nodules of the included lung bases, similar in appearance to prior CT. LIVER: Normal size. No masses. No dilated ducts. SPLEEN: Normal size. No focal lesions. PANCREAS: No masses. No significant calcifications. No adjacent inflammation or peripancreatic fluid collections. Pancreatic duct not dilated. GALLBLADDER: No identified stones by CT criteria. No inflammatory changes to suggest cholecystitis. ADRENAL GLANDS: No significant masses or asymmetry. RIGHT KIDNEY AND URETER: No solid masses. No significant calcifications. No hydronephrosis or hyd roureter. LEFT KIDNEY AND URETER: No solid masses. No significant calcifications. No hydronephrosis or hydr oureter. AORTA AND VESSELS: No aneurysm. No dissection. Renal arteries, SMA, celiac without stenosis. Calcifi c atherosclerosis of the abdominal aorta and iliac branch vessels. RETROPERITONEUM: There are unchanged enlarged retroperitoneal lymph node, largest periaortic nodes me asuring 1.7 by 1.0 cm, unchanged from prior. BOWEL AND PERITONEAL CAVITY: There is sigmoid diverticulosis with mild thickening and fat stranding a bout the mid sigmoid colon, slightly increased in severity compared to prior examination dated 018. No evidence of perforation or abscess. No free fluid or peritoneal masses. APPENDIX: Not visualized. PELVIS: No mass. No free fluid. Normal bladder. ABDOMINAL WALL: No masses. No hernias. BONES: No significant or acute findings. OTHER: No other significant finding. IMPRESSION: 1. Sigmoid diverticulosis with mild thickening and fat stranding with the mid sigmoid c olon, slightly increased in severity compared to prior examination dated 03/05/2018. Findings are con sistent with acute uncomplicated diverticulitis ; there is no evidence of perforation or abscess. 2. Unchanged and nonspecific enlarged retroperitoneal lymph nodes, largest periaortic nodes measurin g 1.7 x 1.0 cm. 3. Numerous redemonstrated, predominantly pleural-based nodules of the included lung bases, similar in appearance to prior CT of the abdomen and pelvis. Recommend dedicated CT examination of the chest to further evaluate; differential considerations based on this limited imaging include atypical infe ction, metastatic pulmonary disease, and pulmonary sarcoidosis. TECHNICAL DOCUMENTATION: JOB ID: [id number] Quality ID # [id number]: Final reports with documentation of one or more dose reduction techniques (e.g., Au tomated exposure control, adjustment of the mA and/or kV according to patient size, use of iterative reconstruction technique) 2010 [employer]- All Rights Reserved Reading location - IP/workstation name: [email or web address]
[2018-04-29 10:02] LABS: APPEARANCE,URINE CLEAR; BILIRUBIN,URINE NEGATIVE (NEGATIVE); COLOR,URINE STRAW; GLUCOSE, URINE NEGATIVE (NEGATIVE); KETONES,URINE NEGATIVE (NEGATIVE); LEUKOCYTE ESTERASE,URINE NEGATIVE (NEGATIVE); NITRITE,URINE NEGATIVE (NEGATIVE); PROTEIN,URINE NEGATIVE (NEGATIVE); UROBILINOGEN,URINE NEGATIVE mg/dL (<2.0)
[2018-04-29] MEDS ORDERED: MAG HYDROX/AL HYDROX/SIMETH SUSP 30 ML UDCUP PO PRN (10:35)
[2018-04-29] MEDS ORDERED: MAGNESIUM HYDROXIDE SUSP 30 ML UDCUP PO PRN (10:35)
[2018-04-29] MEDS ORDERED: ONDANSETRON 4 MG TAB.RAPDIS PO PRN (10:35)
[2018-04-29] MEDS ORDERED: ONDANSETRON HCL INJ/PF 4 MG/2 ML SDV IV PRN (10:35)
[2018-04-29] MEDS ORDERED: MORPHINE SULFATE 10 MG/ML INJ IV PRN ×3 (10:47)
[2018-04-29] MEDS ORDERED: ACETAMINOPHEN 325 MG TABLET PO PRN (10:47)
[2018-04-29] MEDS ORDERED: HYDRALAZINE HCL INJ/PF 20 MG/1 ML SDV IV PRN (10:47)
[2018-04-29] MEDS ORDERED: ACETAMINOPHEN 650 MG SUPP.RECT PR PRN (10:47)
[2018-04-29] MEDS ORDERED: POTASSI CL 20 MEQ/D5-1/2NS 1L 1,000 ML IV PRN (10:51)
[2018-04-29] MEDS: ERTAPENEM SODIUM 1 GM in NORMAL SALINE 50 ML IV SCH (12:42)
[2018-04-29] MEDS: HEPARIN SOD (PORCINE) 5,000 UNIT/ML 1 ML SYRINGE SUBCUT SCH ×2 (14:02→21:10)
[2018-04-29] MEDS: KETOROLAC TROMETHAMINE INJ/PF 30 MG/1 ML SDV IV PRN ×2 (14:05→20:22)
[2018-04-29] MEDS: POTASSI CL 20 MEQ/D5-1/2NS 1L 1,000 ML IV PRN ×2 (14:51→20:29)
--- NOTE | 2018-04-29 15:28 | PDOC H&P ---
History of Present Illness Admission Date/PCP: 04/29/18 10:22 YENI ZAMARRIPA MD Patient complains of: Lower abdominal pain History of Present Illness: CRISTOBAL CHING is a 58 year old male who presents with a 4-1/2-month history of abdominal pain. He describes his abdominal pain as a sharp tearing sensation in his mid abdomen beginning at the level of the umbilicus and traveling down the midline over the pubis and into his scrotum and penis. He admits that at times it feels like a sharp hot bolt of pain starts at his " belly button" and shoots down and out his penis. The pain is definitely made worse by movement and palpation and is relieved at least in part by remaining still. The pain began again rather suddenly 1 day prior to admission and has been accompanied by a burning sensation in his urethra that is worsened by urination. He denies hematuria, nausea, vomiting, diarrhea and constipation. He relates that he began having pain in early December and at that time the pain was on the left lower quadrant of his abdomen and he was treated for an acute diverticulitis using Cipro and Flagyl. He did not tolerate Cipro very well ( nausea, vomiting and diarrhea) and he was subsequently changed to therapy with Levaquin and metronidazole. He seemed to improve while on the antibiotics however once he discontinued the antibiotics within 10-14 days he was back with a more intense episode of similar abdominal pain and eventually was hospitalized and received intravenous Levaquin and Flagyl. 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 After another 10-14 days off therapy he began experiencing discomfort again and at that time his primary care provider and slot floor supervisor agreed that he should go back on the Levaquin and metronidazole. He just finished that 10- day course of therapy approximately 10 days prior to this admission. In the emergency room he was found to have acute sigmoid diverticulitis on his CT scan of the abdomen with intravenous contrast only. He does not have leukocytosis or an anemia. He was mildly hypotensive in the emergency room and he explains that he has continued to take metoprolol despite his lower blood pressure because he was uncertain as to whether he should stop taking it or not. He indicates that he has lost approximately 27 pounds over the last several months and this he believes has resulted in his lower blood pressure and probable need to discontinue therapy. He had already discontinued taking amlodipine which he had prescribed along with the metoprolol for maintenance of his blood pressure control several months ago. With these findings he was admitted for IV fluid therapy and blood pressure support if required as well as initiation of IV antibiotic therapy and a surgical consultation to evaluate for possible sigmoid colectomy or left hemicolectomy to treat his chronic recurrent diverticulitis. Past Medical History Cardiac Medical History: Reports: Hypertension - MEDICATED Denies: Atrial Fibrillation, Coronary Artery Disease, DVT, Myocardial Infarction, Hyperlipidema, Pulmonary Embolism Pulmonary Medical History: Denies: Asthma, Chronic Obstructive Pulmonary Disease (COPD), Sleep Apnea, Tuberculosis EENT Medical History: Denies: None Neurological Medical History: Denies: Migraine, Multiple Sclerosis, Seizures Endocrine Medical History: Reports: Obesity Denies: Diabetes Mellitus Type 1, Diabetes Mellitus Type 2, Hyperthyroidism, Hypothyroidism Renal/ Medical History: Denies: Chronic Kidney Disease, Nephrolithiasis Malignancy Medical History: Reports: None GI Medical History: Reports: Diverticulitis Denies: Crohn's Disease, Hepatitis, Hiatal Hernia, Ulcerative Colitis Musculoskeltal Medical History: Denies: Arthritis, Gout Skin Medical History: Denies: Eczema, Psoriasis Psychiatric Medical History: Denies: Alcohol Dependency, Depression, General Anxiety Disorder, Substance Abuse, Tobacco Dependency Traumatic Medical History: Reports: None Hematology: Denies: Anemia, Bleeding Tendencies Infectious Medical History: Reports: None Past Surgical History Past Surgical History: Reports: Appendectomy Denies: Cardiac Catheterization, Coronary Stent, Pacemaker Social History Information Source: Patient Lives with: Spouse/Significant other Smoking Status: Never Smoker Frequency of Alcohol Use: None Hx Recreational Drug Use: No Drugs: None Hx Prescription Drug Abuse: No - Advance Directive Resuscitation Status: Full Code Surrogate healthcare decision maker:: Tiana Yanez, friend Family History Family History: Hypertension Parental Family History Reviewed: Yes Children Family History Reviewed: Yes Sibling(s) Family History Reviewed.: Yes Medication/Allergy Home Medications: Cholecalciferol (Vitamin D3) [Vitamin D3 2000 unit Tablet] 2,000 unit PO DAILY 04/29/18 Cyanocobalamin (Vitamin B-12) [B-12] 1,000 mcg PO DAILY 04/29/18 Lutein 10 mg PO DAILY 04/29/18 Metoprolol Tartrate [Lopressor 25 mg Tablet] 25 mg PO DAILY 04/29/18 Multivitamin [Multiple Vitamins] 1 each PO DAILY 04/29/18 [place]-3 Fatty Acids/Fish Oil [Fish Oil 1,000 Mg Capsule] 1 each PO DAILY Pyridoxine HCl [Vitamin B-6] 200 mg PO DAILY 04/29/18 [place] Fruit [Saw [place]] 450 mg PO DAILY 04/29/18 Allergies/Adverse Reactions: Penicillins Allergy (Severe, Verified 04/29/18 08:10) tetracycline [Tetracycline] Allergy (Intermediate, Verified 04/29/18 08:10) codeine [Codeine] Adverse Reaction (Intermediate, Verified 04/29/18 08:10) Nausea Review of Systems Constitutional: ABSENT: chills, fever(s), headache(s) Eyes: ABSENT: visual disturbances, other - Ocular pain Ears: ABSENT: hearing changes, other - Ear pain Nose, Mouth, and Throat: ABSENT: mouth pain, sore throat Cardiovascular: ABSENT: chest pain, dyspnea on exertion, orthropnea, palpitations Respiratory: ABSENT: cough, dyspnea Gastrointestinal: PRESENT: abdominal pain. ABSENT: constipation, diarrhea, dysphagia, hematemesis, hematochezia, melena, nausea, vomiting Genitourinary: ABSENT: dysuria, hematuria Musculoskeletal: ABSENT: back pain, joint swelling Integumentary: ABSENT: pruritus, rash Neurological: ABSENT: confusion, convulsions, syncope, tremor(s) Psychiatric: ABSENT: anxiety, depression Endocrine: ABSENT: cold intolerance, heat intolerance Hematologic/Lymphatic: ABSENT: easy bleeding, easy bruising Allergic/Immunologic: ABSENT: seasonal rhinorrhea, other - Insect bite allergy Physical Exam Vital Signs: Temp Pulse Resp BP Pulse Ox 98.7 F 54 L 18 94/57 L 96 04/29/18 12:26 04/29/18 12:26 04/29/18 12:26 04/29/18 12:26 04/29/18 12:26 Intake & Output 04/27/18 04/28/18 04/29/18 23:59 23:59 23:59 Intake Total 1050 Balance 1050 Weight 95 kg Results Laboratory Results: A CBC and metabolic profile are essentially unremarkable. Impressions: Abdomen/Pelvis CT 04/29/18 07:15 IMPRESSION: 1. Sigmoid diverticulosis with mild thickening and fat stranding with the mid sigmoid colon, slightly increased in severity compared to prior examination dated 03/05/2018. Findings are consistent with acute uncomplicated diverticulitis ; there is no evidence of perforation or abscess. 2. Unchanged and nonspecific enlarged retroperitoneal lymph nodes, largest periaortic nodes measuring 1.7 x 1.0 cm. 3. Numerous redemonstrated, predominantly pleural-based nodules of the included lung bases, similar in appearance to prior CT of the abdomen and pelvis. Recommend dedicated CT examination of the chest to further evaluate; differential considerations based on this limited imaging include atypical infection, metastatic pulmonary disease, and pulmonary sarcoidosis. Status: Image reviewed by wv - CT of the abdomen and pelvis with intravenous contrast reveals significant sigmoid region inflammatory changes. Assessment & Plan - Diagnosis (1) Sigmoid diverticulitis Is this a current diagnosis for this admission?: Yes Plan: Patient has been admitted for IV fluids as well as symptomatic cares. He will be treated with Invanz 1 g IV every 24 hours and a surgical consultation will be obtained to evaluate his recurrent sigmoid diverticulitis. (2) Iatrogenic hypotension Is this a current diagnosis for this admission?: Yes Plan: Patient's blood pressures been noted to be relatively hypotensive to his usual baseline. I believe this is due to the effect of his metoprolol which he has continued to take despite having reduced his weight by 10% over the last several months. His metoprolol will be withheld and he will be continued on fluid support and observe for improvement or degradation of his blood pressure. (3) Obesity (BMI 30.0-34.9) Is this a current diagnosis for this admission?: Yes Plan: Patient is actually lost approximately 10% of his body weight over the last several months. We briefly discussed weight loss however given his abdominal pain and other discomfort is felt that this topic could be discussed more effectively at a later time. (4) Hypertension Qualifiers: Hypertension type: essential hypertension Qualified Code(s): I10 - Essential (primary) hypertension Is this a current diagnosis for this admission?: Yes Plan: The patient's essential hypertension his substantially improved with his weight loss and it may no longer require antihypertensive therapy. He has continued taking metoprolol although he did discontinue taking amlodipine. I will discontinue his metoprolol at this time and observe his blood pressure over his hospital course. - Time Time Spent: 50 to 70 Minutes Medications reviewed and adjusted accordingly: Yes - Inpatient Certification Based on my medical assessment, after consideration of the patient's comorbidities, presenting symptoms, or acuity I expect that the services needed warrant INPATIENT care.: Yes I certify that my determination is in accordance with my understanding of Medicare's requirements for reasonable and necessary INPATIENT services [42 CFR 412.3e].: Yes Medical Necessity: Failure to Improve With Outpatient Therapy, Need Close Monitoring Due to Risk of Patient Decompensation, Need For IV Fluids, Need for Pain Control, Need for IV Antibiotics, Risk of Complication if Not Cared For in Hospital, Risk of Diagnosis Which Will Require Inpatient Eval/Care/Monitoring
[2018-04-29] MEDS: DOCUSATE SODIUM 100 MG CAPSULE PO SCH (17:38)
[2018-04-29] MEDS: LANSOPRAZOLE 30 MG TAB.RAP.DR PO SCH (17:38)
[2018-04-30] MEDS: POTASSI CL 20 MEQ/D5-1/2NS 1L 1,000 ML IV PRN ×2 (04:27→10:55)
[2018-04-30 04:50] LABS: ABSOLUTE EOSINOPHILS # (AUTO) 0.1 10^3/uL (0.0-0.6); ABSOLUTE MONOCYTES (AUTO) 0.4 10^3/uL (0.1-1.4); ABSOLUTE NEUT (AUTO) 2.9 10^3/uL (1.7-8.2); BASOPHILS % (AUTO) 0.3 % (0-2); EOSINOPHILS % (AUTO) 2.7 % (0-6); HEMATOCRIT 36.4 % (37.9-51.0); HEMOGLOBIN 12.9 g/dL (13.5-17.0); LYMPHOCYTES % (AUTO) 22.2 % (13-45); MEAN CORPUSCULAR HEMOGLOBIN 30.5 pg (27.0-33.4); MEAN CORPUSCULAR HGB CONC 35.3 g/dL (32.0-36.0); MEAN CORPUSCULAR VOLUME 86 fl (80-97); MONOCYTES % (AUTO) 9.7 % (3-13); PLATELET COUNT 136 10^3/uL (150-450); RED BLOOD COUNT 4.22 10^6/uL (4.35-5.55); RED CELL DISTRIBUTION WIDTH 13.9 % (11.5-14.0); SEGMENTED NEUTROPHILS % (AUTO) 65.1 % (42-78); TOTAL CELLS COUNTED % (AUTO) 100 %; WHITE BLOOD COUNT 4.4 10^3/uL (4.0-10.5)
[2018-04-30 05:26] LABS: ALANINE AMINOTRANSFERASE 19 U/L (21-72); ALBUMIN 2.8 g/dL (3.5-5.0); ALKALINE PHOSPHATASE 43 U/L (38-126); ANION GAP 9 (5-19); ASPARTATE AMINO TRANSFERASE 16 U/L (17-59); BILIRUBIN,DIRECT 0.1 mg/dL (0.0-0.4); BILIRUBIN,TOTAL 0.6 mg/dL (0.2-1.3); BLOOD UREA NITROGEN 9 mg/dL (7-20); CALCIUM 8.4 mg/dL (8.4-10.2); CARBON DIOXIDE 26 mmol/L (22-30); CHLORIDE 106 mmol/L (98-107); CHOLESTEROL 117.86 mg/dL (0-200); GLUCOSE 117 mg/dL (75-110); POTASSIUM 4.4 mmol/L (3.6-5.0); SODIUM 140.5 mmol/L (137-145); TOTAL PROTEIN 5.4 g/dL (6.3-8.2); TRIGLYCERIDES 92 mg/dL (<150)
[2018-04-30 05:36] LABS: FREE T3 2.42 pg/mL (2.77-5.27); FREE T4 (FREE THYROXINE) 1.02 ng/dL (0.78-2.19)
[2018-04-30 05:37] LABS: DIRECT LDL 71 mg/dL (<100)
[2018-04-30 05:50] LABS: THYROID STIMULATING HORMONE 2.24 uIU/mL (0.47-4.68)
[2018-04-30] MEDS: LANSOPRAZOLE 30 MG TAB.RAP.DR PO SCH ×2 (06:12→17:17)
[2018-04-30] MEDS: HEPARIN SOD (PORCINE) 5,000 UNIT/ML 1 ML SYRINGE SUBCUT SCH ×3 (06:12→22:52)
[2018-04-30] MEDS: KETOROLAC TROMETHAMINE INJ/PF 30 MG/1 ML SDV IV PRN ×3 (06:16→23:25)
[2018-04-30] MEDS: DOCUSATE SODIUM 100 MG CAPSULE PO SCH ×3 (09:34→17:17)
[2018-04-30] MEDS: PYRIDOXINE HCL 50 MG TABLET PO SCH (09:38)
[2018-04-30] MEDS: CYANOCOBALAMIN (VITAMIN B-12) 1,000 MCG TABLET PO SCH (09:38)
[2018-04-30] MEDS: CHOLECALCIFEROL (D3) 1,000 UNIT TABLET PO SCH (09:38)
[2018-04-30] MEDS: MULTIVITAMIN TABLET PO SCH (09:38)
[2018-04-30] MEDS ORDERED: ERTAPENEM SODIUM INJ 1 GM VIAL IV SCH (10:00)
[2018-04-30] MEDS ORDERED: PYRIDOXINE HCL 200 MG PO SCH (10:00)
[2018-04-30] MEDS ORDERED: (PENDING PHARMACY ID) (Cholecalciferol (Vitamin D3) [Vitamin D3 2000 Unit Tablet] 2,000 UN PO SCH (10:00)
[2018-04-30] MEDS ORDERED: METOPROLOL SUCCINATE 25 MG TAB.SR.24H PO SCH (10:00)
[2018-04-30] MEDS: ERTAPENEM SODIUM 1 GM in NORMAL SALINE 50 ML IV SCH (12:08)
--- NOTE | 2018-04-30 12:40 | PDOC PROGRESS REPORT ---
Subjective Progress Note for:: 04/30/18 Subjective:: CRISTOBAL CHING is a 58 year old male who presents with a 4-1/2-month history of abdominal pain. He describes his abdominal pain as a sharp tearing sensation in his mid abdomen beginning at the level of the umbilicus and traveling down the midline over the pubis and into his scrotum and penis. He admits that at times it feels like a sharp hot bolt of pain starts at his " belly button" and shoots down and out his penis. The pain is definitely made worse by movement and palpation and is relieved at least in part by remaining still. The pain began again rather suddenly 1 day prior to admission and has been accompanied by a burning sensation in his urethra that is worsened by urination. He denies hematuria, nausea, vomiting, diarrhea and constipation. He relates that he began having pain in early December and at that time the pain was on the left lower quadrant of his abdomen and he was treated for an acute diverticulitis using Cipro and Flagyl. He did not tolerate Cipro very well ( nausea, vomiting and diarrhea) and he was subsequently changed to therapy with Levaquin and metronidazole. He seemed to improve while on the antibiotics however once he discontinued the antibiotics within 10-14 days he was back with a more intense episode of similar abdominal pain and eventually was hospitalized and received intravenous Levaquin and Flagyl. After his hospitalization he was placed on intravenous home therapy for 9 days and was then supposed to follow-up with 10 days of oral therapy which he was discouraged from doing by his primary care provider and his crucible packer. After another 10-14 days off therapy he began experiencing discomfort again and at that time his primary care provider and crucible packer agreed that he should go back on the Levaquin and metronidazole. He just finished that 10- day course of therapy approximately 10 days prior to this admission. In the emergency room he was found to have acute sigmoid diverticulitis on his CT scan of the abdomen with intravenous contrast only. He does not have leukocytosis or an anemia. He was mildly hypotensive in the emergency room and he explains that he has continued to take metoprolol despite his lower blood pressure because he was uncertain as to whether he should stop taking it or not. He indicates that he has lost approximately 27 pounds over the last several months and this he believes has resulted in his lower blood pressure and probable need to discontinue therapy. He had already discontinued taking amlodipine which he had prescribed along with the metoprolol for maintenance of his blood pressure control several months ago. With these findings he was admitted for IV fluid therapy and blood pressure support if required as well as initiation of IV antibiotic therapy and a surgical consultation to evaluate for possible sigmoid colectomy or left hemicolectomy to treat his chronic recurrent diverticulitis. 04/30/2018: Patient states he is feeling considerably better today he has been able to continue tolerate oral feedings and would like to have more to eat. He has significantly less pain in his lower abdomen although the pain is still present and is still worsened by movement or palpation he feels that the intensity is substantially decreased. He has been urinating without difficulty or pain. He has not yet had a bowel movement nor has he passed flatus. He was seen by the surgical brace maker, Dr. Conti who felt that the best approach would be to wait until his bowel has healed and at that point consider an elective sigmoid colectomy or waiting to see if he has another recurrence. If he were to have another recurrence Dr. Conti had indicated that at that point a sigmoid colectomy would be necessary. With Dr. Álvarez's consent the patient will be treated with a high-fiber diet and additional fiber and stool softeners will be added to the patient's regiment to promote soft easy to pass bowel movements. I will have a PICC line placed tomorrow consulting radiology. If patient is able to comfortably pass stool and flatus he may be discharged home for continued antibiotic therapy to complete what should probably be a 14-day course. Patient and his are very happy with his care so far and are looking forward to him being discharged in a timely manner with a more effective plan in place. Reason For Visit: ACUTE RECURRENT SIGMOID DIVERTICULITIS Physical Exam Vital Signs: Temp Pulse Resp BP Pulse Ox 98.0 F 53 L 16 96/60 L 97 04/30/18 07:39 04/30/18 07:39 04/30/18 07:39 04/30/18 07:39 04/30/18 07:39 Intake & Output 04/28/18 04/29/18 04/30/18 23:59 23:59 23:59 Intake Total 3471 2400 Balance 3471 2400 Weight 95 kg 95 kg General appearance: PRESENT: no acute distress, cooperative, obese Head exam: PRESENT: atraumatic, normocephalic Eye exam: PRESENT: conjunctiva pink, EOMI Ear exam: PRESENT: normal external ear exam. ABSENT: drainage Mouth exam: PRESENT: neck supple, tongue midline Neck exam: ABSENT: thyromegaly, tracheal deviation Respiratory exam: PRESENT: clear to auscultation enzo, symmetrical, unlabored Cardiovascular exam: PRESENT: RRR. ABSENT: clicks, diastolic murmur, gallop, rubs, systolic murmur Vascular exam: PRESENT: normal capillary refill. ABSENT: pallor GI/Abdominal exam: PRESENT: normal bowel sounds, soft, tenderness - Mild tenderness in the mid lower abdomen from the umbilicus to the pubic symphysis. This significantly improved from yesterday when the patient was noted to have some voluntary and involuntary guarding with the tenderness and at that time he rated his tenderness as severe and currently he rates it as mild. He continues to feel a radiation of the pain into the groin, scrotum and penis but this is also significantly decreased.. ABSENT: distended Rectal exam: PRESENT: deferred Extremities exam: ABSENT: joint swelling, pedal edema Musculoskeletal exam: PRESENT: ambulatory, full ROM, normal inspection Neurological exam: PRESENT: alert, oriented to person, oriented to place, oriented to time, oriented to situation, CN II-XII grossly intact. ABSENT: motor sensory deficit Psychiatric exam: PRESENT: appropriate affect, normal mood Skin exam: PRESENT: dry, intact, warm Results Laboratory Results: 04/30/18 04:10 04/30/18 04:10 04/30/18 04/30/18 04/30/18 04:10 04:10 04:10 WBC 4.4 RBC 4.22 L Hgb 12.9 L Hct 36.4 L MCV 86 MCH 30.5 MCHC 35.3 RDW 13.9 Plt Count 136 L Seg Neutrophils % 65.1 Lymphocytes % 22.2 Monocytes % 9.7 Eosinophils % 2.7 Basophils % 0.3 Absolute Neutrophils 2.9 Absolute Lymphocytes 1.0 Absolute Monocytes 0.4 Absolute Eosinophils 0.1 Absolute Basophils 0.0 Sodium 140.5 Potassium 4.4 Chloride 106 Carbon Dioxide 26 Anion Gap 9 BUN 9 Creatinine 0.82 Est GFR ( Amer) > 60 Est GFR (Non-Af Amer) > 60 Glucose 117 H Calcium 8.4 Magnesium 1.9 Total Bilirubin 0.6 AST 16 L ALT 19 L Alkaline Phosphatase 43 Total Protein 5.4 L Albumin 2.8 L Triglycerides 92 Cholesterol 117.86 LDL Cholesterol Direct 71 VLDL Cholesterol 18.0 HDL Cholesterol 31 L TSH 2.24 Free T4 1.02 Free T3 pg/mL 2.42 L Impressions: Abdomen/Pelvis CT 04/29/18 07:15 IMPRESSION: 1. Sigmoid diverticulosis with mild thickening and fat stranding with the mid sigmoid colon, slightly increased in severity compared to prior examination dated 03/05/2018. Findings are consistent with acute uncomplicated diverticulitis ; there is no evidence of perforation or abscess. 2. Unchanged and nonspecific enlarged retroperitoneal lymph nodes, largest periaortic nodes measuring 1.7 x 1.0 cm. 3. Numerous redemonstrated, predominantly pleural-based nodules of the included lung bases, similar in appearance to prior CT of the abdomen and pelvis. Recommend dedicated CT examination of the chest to further evaluate; differential considerations based on this limited imaging include atypical infection, metastatic pulmonary disease, and pulmonary sarcoidosis. Assessment & Plan - Diagnosis (1) Sigmoid diverticulitis Is this a current diagnosis for this admission?: Yes Plan: Patient has been admitted for IV fluids as well as symptomatic cares. He will be treated with Invanz 1 g IV every 24 hours and a surgical consultation will be obtained to evaluate his recurrent sigmoid diverticulitis. 04/30/2018: IV fluids will be discontinued. Continue IV Invanz 1 g every 24 hours. Increase oral diet to regular diet with high fiber content plus add Metamucil and MiraLAX to increase fiber and Colace to increase stool volume and soften the stool. Encourage oral fluids. Plan possible discharge tomorrow after placement of a PICC line if the patient is stooling without pain or bleeding. (2) Iatrogenic hypotension Is this a current diagnosis for this admission?: Yes Plan: Patient's blood pressures been noted to be relatively hypotensive to his usual baseline. I believe this is due to the effect of his metoprolol which he has continued to take despite having reduced his weight by 10% over the last several months. His metoprolol will be withheld and he will be continued on fluid support and observe for improvement or degradation of his blood pressure. 04/30/2018: Patient's blood pressures remained stable since discontinuation of his metoprolol. I recommend the patient that he not take metoprolol at home and in fact take no blood pressure medication until he has been reevaluated by his primary care provider. (3) Obesity (BMI 30.0-34.9) Is this a current diagnosis for this admission?: Yes Plan: Patient is actually lost approximately 10% of his body weight over the last several months. We briefly discussed weight loss however given his abdominal pain and other discomfort is felt that this topic could be discussed more effectively at a later time. 04/30/2018: Patient is going to be placed on a high-fiber regular diet with additional fiber and stool softening supplements. At this point in his treatment dietary attempts at weight loss probably not indicated. Once he is infection has resolved if he is going to wait for a period of observation prior to considering a colectomy would be appropriate for him to reduce his caloric intake and try to reduce his weight by another 10-20 kg. This would make him a much better surgical candidate and overall be generally a more healthy life choices. (4) Hypertension Qualifiers: Hypertension type: essential hypertension Qualified Code(s): I10 - Essential (primary) hypertension Is this a current diagnosis for this admission?: Yes Plan: The patient's essential hypertension his substantially improved with his weight loss and it may no longer require antihypertensive therapy. He has continued taking metoprolol although he did discontinue taking amlodipine. I will discontinue his metoprolol at this time and observe his blood pressure over his hospital course. 04/30/2018: Patient's metoprolol will be discontinued at this time. His blood pressures remained stable without the benefit of metoprolol and therefore I have asked him to not take any antihypertensive agents until following up with his primary care provider for reassessment. - Time Time Spent with patient: 25-34 minutes Medications reviewed and adjusted accordingly: Yes Anticipated discharge: Home Within: within 48 hours
--- NOTE | 2018-04-30 13:16 | PDOC CONSULTATION ---
Consultation Consult Date: 04/30/18 Consult reason:: Diverticulitis History of Present Illness Admission Date/PCP: 04/29/18 10:22 YENI ZAMARRIPA MD Patient complains of: Suprapubic abdominal pain History of Present Illness: CRISTOBAL CHING is a 58 year old male seen at the request of the hospitalist service. The patient has a history of diverticulitis. His first episode was in February of this year. The patient underwent IV antibiotics, and his symptoms improved. Over the last 1 week the patient has had increasing amounts of lower abdominal pain. The patient's pain is crampy and waxes/wanes. At times his pain is severe. Patient reports subjective fevers and chills. He denies nausea or vomiting. He denies abdominal distention, melena, hematochezia , hematemesis, dizziness, orthostasis, weakness, blurry vision, chest pain, shortness of breath. The patient does not take a fiber supplement. His last colonoscopy was May 2017, and was normal. Past Medical History Cardiac Medical History: Reports: Hypertension - MEDICATED Denies: Atrial Fibrillation, Coronary Artery Disease, DVT, Myocardial Infarction, Hyperlipidema, Pulmonary Embolism Pulmonary Medical History: Denies: Asthma, Chronic Obstructive Pulmonary Disease (COPD), Sleep Apnea, Tuberculosis EENT Medical History: Denies: None Neurological Medical History: Denies: Migraine, Multiple Sclerosis, Seizures Endocrine Medical History: Reports: Obesity Denies: Diabetes Mellitus Type 1, Diabetes Mellitus Type 2, Hyperthyroidism, Hypothyroidism Renal/ Medical History: Denies: Chronic Kidney Disease, Nephrolithiasis Malignancy Medical History: Reports: None GI Medical History: Reports: Diverticulitis Denies: Crohn's Disease, Hepatitis, Hiatal Hernia, Ulcerative Colitis Musculoskeltal Medical History: Denies: Arthritis, Gout Skin Medical History: Denies: Eczema, Psoriasis Psychiatric Medical History: Denies: Alcohol Dependency, Depression, General Anxiety Disorder, Substance Abuse, Tobacco Dependency Traumatic Medical History: Reports: None Hematology: Denies: Anemia, Bleeding Tendencies Infectious Medical History: Reports: None Past Surgical History Past Surgical History: Reports: Appendectomy Denies: Cardiac Catheterization, Coronary Stent, Pacemaker Social History Lives with: Spouse/Significant other Smoking Status: Never Smoker Frequency of Alcohol Use: None Hx Recreational Drug Use: No Drugs: None Hx Prescription Drug Abuse: No - Advance Directive Resuscitation Status: Full Code Family History Family History: Hypertension Parental Family History Reviewed: Yes Children Family History Reviewed: Yes Sibling(s) Family History Reviewed.: Yes Medication/Allergy Home Medications: Cholecalciferol (Vitamin D3) [Vitamin D3 2000 unit Tablet] 2,000 unit PO DAILY 04/29/18 Cyanocobalamin (Vitamin B-12) [B-12] 1,000 mcg PO DAILY 04/29/18 Lutein 10 mg PO DAILY 04/29/18 Metoprolol Tartrate [Lopressor 25 mg Tablet] 25 mg PO DAILY 04/29/18 Multivitamin [Multiple Vitamins] 1 each PO DAILY 04/29/18 Jefferson-3 Fatty Acids/Fish Oil [Fish Oil 1,000 Mg Capsule] 1 each PO DAILY Pyridoxine HCl [Vitamin B-6] 200 mg PO DAILY 04/29/18 Saw Cantil Fruit [Saw Cantil] 450 mg PO DAILY 04/29/18 Allergies/Adverse Reactions: Penicillins Allergy (Severe, Verified 04/29/18 08:10) tetracycline [Tetracycline] Allergy (Intermediate, Verified 04/29/18 08:10) codeine [Codeine] Adverse Reaction (Intermediate, Verified 04/29/18 08:10) Nausea Review of Systems Constitutional: PRESENT: chills, fever(s). ABSENT: weakness Eyes: ABSENT: visual disturbances Ears: ABSENT: hearing changes Nose, Mouth, and Throat: ABSENT: sore throat Cardiovascular: ABSENT: chest pain, orthropnea, palpitations Respiratory: ABSENT: cough, dyspnea Gastrointestinal: PRESENT: abdominal pain, constipation. ABSENT: bloating, hematemesis, hematochezia, melena, nausea, vomiting Genitourinary: PRESENT: dysuria Musculoskeletal: ABSENT: back pain Integumentary: ABSENT: pruritus, rash Neurological: ABSENT: abnormal speech, confusion, convulsions, dizziness Psychiatric: ABSENT: anxiety, depression Endocrine: ABSENT: cold intolerance, heat intolerance Hematologic/Lymphatic: ABSENT: easy bleeding, easy bruising Physical Exam Vital Signs: Temp Pulse Resp BP Pulse Ox 97.8 F 54 L 16 105/64 100 04/30/18 11:48 04/30/18 11:48 04/30/18 11:48 04/30/18 11:48 04/30/18 11:48 Intake & Output 11/17/18 11/18/18 11/19/18 06:59 06:59 06:59 Intake Total 2459 0710 Balance 4871 1847 Weight 95 kg General appearance: PRESENT: no acute distress Head exam: PRESENT: atraumatic, normocephalic Eye exam: PRESENT: EOMI, PERRLA. ABSENT: scleral icterus Mouth exam: PRESENT: moist, neck supple Teeth exam: ABSENT: poor dentation Neck exam: ABSENT: meningismus, tenderness, thyromegaly, tracheal deviation Respiratory exam: PRESENT: clear to auscultation enzo, unlabored. ABSENT: chest wall tenderness, rhonchi, stridor, tachypnea, wheezes Cardiovascular exam: PRESENT: RRR Pulses: PRESENT: normal radial pulses Vascular exam: PRESENT: normal capillary refill. ABSENT: pallor GI/Abdominal exam: PRESENT: soft, tenderness - Right lower quadrant, left lower quadrant, and suprapubic area. ABSENT: distended, guarding Rectal exam: PRESENT: deferred Extremities exam: ABSENT: clubbing Musculoskeletal exam: ABSENT: deformity Neurological exam: PRESENT: alert, awake, oriented to person, oriented to place , oriented to time, oriented to situation Psychiatric exam: ABSENT: agitated, anxious, depressed Skin exam: ABSENT: cyanosis, erythema, jaundice Results Laboratory Results: 04/30/18 04:10 04/30/18 04:10 04/30/18 04/30/18 04/30/18 04:10 04:10 04:10 WBC 4.4 RBC 4.22 L Hgb 12.9 L Hct 36.4 L MCV 86 MCH 30.5 MCHC 35.3 RDW 13.9 Plt Count 136 L Seg Neutrophils % 65.1 Lymphocytes % 22.2 Monocytes % 9.7 Eosinophils % 2.7 Basophils % 0.3 Absolute Neutrophils 2.9 Absolute Lymphocytes 1.0 Absolute Monocytes 0.4 Absolute Eosinophils 0.1 Absolute Basophils 0.0 Sodium 140.5 Potassium 4.4 Chloride 106 Carbon Dioxide 26 Anion Gap 9 BUN 9 Creatinine 0.82 Est GFR ( Amer) > 60 Est GFR (Non-Af Amer) > 60 Glucose 117 H Calcium 8.4 Magnesium 1.9 Total Bilirubin 0.6 AST 16 L ALT 19 L Alkaline Phosphatase 43 Total Protein 5.4 L Albumin 2.8 L Triglycerides 92 Cholesterol 117.86 LDL Cholesterol Direct 71 VLDL Cholesterol 18.0 HDL Cholesterol 31 L TSH 2.24 Free T4 1.02 Free T3 pg/mL 2.42 L Impressions: Abdomen/Pelvis CT 04/29/18 07:15 IMPRESSION: 1. Sigmoid diverticulosis with mild thickening and fat stranding with the mid sigmoid colon, slightly increased in severity compared to prior examination dated 03/05/2018. Findings are consistent with acute uncomplicated diverticulitis ; there is no evidence of perforation or abscess. 2. Unchanged and nonspecific enlarged retroperitoneal lymph nodes, largest periaortic nodes measuring 1.7 x 1.0 cm. 3. Numerous redemonstrated, predominantly pleural-based nodules of the included lung bases, similar in appearance to prior CT of the abdomen and pelvis. Recommend dedicated CT examination of the chest to further evaluate; differential considerations based on this limited imaging include atypical infection, metastatic pulmonary disease, and pulmonary sarcoidosis. Assessment & Plan - Diagnosis (1) Diverticulitis Is this a current diagnosis for this admission?: Yes - Plan Summary Plan Summary: This is a 58-year-old male with an episode of uncomplicated diverticulitis. I have reviewed the patient's last 2 CT scans (images and reports). The patient has no evidence of free intraperitoneal air, abscess, or other serious finding on CT. His white blood cell count is essentially normal. The patient reports that this is his second episode of diverticulitis in the last 3 months. The patient has never been on a fiber supplement before. His last colonoscopy was less than a year ago, and was normal. I have recommended intravenous antibiotics until his abdominal pain subsides. The patient should start a fiber supplement and stool softeners. I have recommended close monitoring of the patient's symptoms over the next several weeks to ensure that his diverticulitis resolves. If the patient continues to have symptoms, or has multiply recurrent disease, he may benefit from sigmoid colectomy. Conservative management is the treatment of choice at present. I will follow this patient closely with you.
[2018-04-30] MEDS: POLYETHYLENE GLYCOL 3350 POWDER 17 GM/1 PACKET PO SCH (13:22)
[2018-04-30] MEDS: PSYLLIUM SEED-SF 5.85 GM PACKET PO SCH (17:17)
[2018-04-30] MEDS: ZOLPIDEM TARTRATE 5 MG TABLET PO PRN (23:25)
[2018-05-01 04:52] LABS: ABSOLUTE EOSINOPHILS # (AUTO) 0.2 10^3/uL (0.0-0.6); ABSOLUTE LYMPHOCYTES (AUTO) 1.1 10^3/uL (0.5-4.7); ABSOLUTE MONOCYTES (AUTO) 0.3 10^3/uL (0.1-1.4); ABSOLUTE NEUT (AUTO) 2.1 10^3/uL (1.7-8.2); BASOPHILS % (AUTO) 0.6 % (0-2); EOSINOPHILS % (AUTO) 4.4 % (0-6); HEMATOCRIT 36.4 % (37.9-51.0); HEMOGLOBIN 12.9 g/dL (13.5-17.0); LYMPHOCYTES % (AUTO) 30.6 % (13-45); MEAN CORPUSCULAR HEMOGLOBIN 30.7 pg (27.0-33.4); MEAN CORPUSCULAR HGB CONC 35.4 g/dL (32.0-36.0); MEAN CORPUSCULAR VOLUME 87 fl (80-97); MONOCYTES % (AUTO) 8.6 % (3-13); PLATELET COUNT 140 10^3/uL (150-450); RED CELL DISTRIBUTION WIDTH 13.8 % (11.5-14.0); SEGMENTED NEUTROPHILS % (AUTO) 55.8 % (42-78); TOTAL CELLS COUNTED % (AUTO) 100 %; WHITE BLOOD COUNT 3.7 10^3/uL (4.0-10.5)
[2018-05-01 05:11] LABS: ANION GAP 8 (5-19); BLOOD UREA NITROGEN 12 mg/dL (7-20); CALCIUM 8.7 mg/dL (8.4-10.2); CARBON DIOXIDE 27 mmol/L (22-30); CHLORIDE 105 mmol/L (98-107); GLUCOSE 101 mg/dL (75-110); POTASSIUM 4.1 mmol/L (3.6-5.0); SODIUM 139.9 mmol/L (137-145)
[2018-05-01] MEDS: LANSOPRAZOLE 30 MG TAB.RAP.DR PO SCH ×2 (05:32→17:30)
[2018-05-01] MEDS: HEPARIN SOD (PORCINE) 5,000 UNIT/ML 1 ML SYRINGE SUBCUT SCH ×2 (05:32→14:43)
--- NOTE | 2018-05-01 09:14 | PDOC PROGRESS REPORT ---
Subjective Subjective:: Patient still having left lower quadrant pain. He is on a low residue, high fiber diet. He is still taking pain medication Reason For Visit: ACUTE RECURRENT SIGMOID DIVERTICULITIS Physical Exam Vital Signs: Temp Pulse Resp BP Pulse Ox 97.9 F 53 L 20 118/71 99 05/01/18 08:00 05/01/18 08:00 05/01/18 08:00 05/01/18 08:00 05/01/18 08:00 Intake & Output 04/30/18 05/01/18 05/02/18 06:59 06:59 06:59 Intake Total 4819 2379 Balance 4871 2379 Weight 95 kg 99.1 kg General appearance: PRESENT: no acute distress GI/Abdominal exam: PRESENT: other - Left lower quadrant is tender, but no rigidity guarding or distention. Results Laboratory Results: 05/01/18 04:10 05/01/18 04:10 05/01/18 05/01/18 04:10 04:10 WBC 3.7 L RBC 4.20 L Hgb 12.9 L Hct 36.4 L MCV 87 MCH 30.7 MCHC 35.4 RDW 13.8 Plt Count 140 L Seg Neutrophils % 55.8 Lymphocytes % 30.6 Monocytes % 8.6 Eosinophils % 4.4 Basophils % 0.6 Absolute Neutrophils 2.1 Absolute Lymphocytes 1.1 Absolute Monocytes 0.3 Absolute Eosinophils 0.2 Absolute Basophils 0.0 Sodium 139.9 Potassium 4.1 Chloride 105 Carbon Dioxide 27 Anion Gap 8 BUN 12 Creatinine 0.96 Est GFR ( Amer) > 60 Est GFR (Non-Af Amer) > 60 Glucose 101 Calcium 8.7 Magnesium 2.0 Impressions: Abdomen/Pelvis CT 04/29/18 07:15 IMPRESSION: 1. Sigmoid diverticulosis with mild thickening and fat stranding with the mid sigmoid colon, slightly increased in severity compared to prior examination dated 03/05/2018. Findings are consistent with acute uncomplicated diverticulitis ; there is no evidence of perforation or abscess. 2. Unchanged and nonspecific enlarged retroperitoneal lymph nodes, largest periaortic nodes measuring 1.7 x 1.0 cm. 3. Numerous redemonstrated, predominantly pleural-based nodules of the included lung bases, similar in appearance to prior CT of the abdomen and pelvis. Recommend dedicated CT examination of the chest to further evaluate; differential considerations based on this limited imaging include atypical infection, metastatic pulmonary disease, and pulmonary sarcoidosis. Assessment & Plan - Diagnosis (1) Diverticulitis Is this a current diagnosis for this admission?: Yes Plan: Recommendation : Persisting, recurrent uncomplicated diverticulitis in 58-year- old white male. Clinically improved . Recommendations: 1. Patient's physical examination findings, and clinical course have been out of proportion to the radiographic findings. I discussed this with the primary care service. Plans are for another course of intravenous antibiotics on an outpatient basis. Though this may benefit the patient, there are potential side effects to prolonged intravenous antibiotics which we discussed. 2. I have suggested the patient stay on a low residue diet, and follow-up with either Dr. Cheek or Sushila at [facility] in 1-2 weeks. Since last colonoscopy was less than a year ago so this may need to be repeated. Patient may be considered for an interval sigmoid colectomy given his refractory symptoms despite maximum medical therapy; however I am concerned that the benefits may not outweigh the risks at this moment. 3. Please have patient follow-up in 1-2 weeks.
[2018-05-01] MEDS ORDERED: NORMAL SALINE 10 ML SDV (AFTER EACH USE) IV PRN (10:57)
[2018-05-01] MEDS: ERTAPENEM SODIUM 1 GM in NORMAL SALINE 50 ML IV SCH (11:51)
[2018-05-01] MEDS: PYRIDOXINE HCL 50 MG TABLET PO SCH (11:51)
[2018-05-01] MEDS: DOCUSATE SODIUM 100 MG CAPSULE PO SCH ×2 (11:55→17:30)
[2018-05-01] MEDS: CYANOCOBALAMIN (VITAMIN B-12) 1,000 MCG TABLET PO SCH (11:58)
[2018-05-01] MEDS: MULTIVITAMIN TABLET PO SCH (11:58)
[2018-05-01] MEDS: PSYLLIUM SEED-SF 5.85 GM PACKET PO SCH ×2 (11:58→17:34)
[2018-05-01] MEDS: CHOLECALCIFEROL (D3) 1,000 UNIT TABLET PO SCH (11:58)
[2018-05-01] MEDS: POLYETHYLENE GLYCOL 3350 POWDER 17 GM/1 PACKET PO SCH (13:23)
--- NOTE | 2018-05-01 13:40 | RADIOLOGY REPORT (SQ) ---
EXAM DESCRIPTION: PICC INSERTION; FLUORO/CV PLACEMENT; U/S GUIDE FOR VASCULAR ACCESS COMPLETED DATE/TIME: 05/01/2018 11:20 am REASON FOR STUDY: IV antibiotic at home; IV ABX COMPARISON: None. FLUOROSCOPY TIME: 32 seconds. 1 images saved to PACS. TECHNIQUE: Fluoroscopic and ultrasound guided PICC placement. LIMITATIONS: None. PROCEDURE: After written consent and assessment were obtained, the patient was brought into the fluo roscopy room and placed supine on the table. Ultrasound evaluation of potential access sites were per formed. After successfully identifying a patent left basilic vein, the left arm was prepped and drape d in a sterile fashion along with the ultrasound probe. The entry site was anesthetized with 1% lidoc matthew. A 21 gauge 7 cm needle was advanced through the skin and into the basilic vein under live ultra sound guidance. An ultrasound image was saved to PACS confirming access site. A .018 guide wire was then inserted through the needle and into the venous system. The needle was then removed and an 11 b lade scalpel was used to make a 1cm skin incision. A 5 fr peel-away sheath was advanced over the wir e and into the venous system. A measurement was then made using the existing wire and live fluoroscop ic guidance. The wire was then removed and trimmed. The PICC was advanced through the peel-away sheat h and into the venous system. The peel-away sheath was removed and the catheter was adhered to the pa tients arm with a stat lock. The catheter was then aspirated and flushed and a sterile bandage was pl aced over the access site. A fluoroscopic spot image was saved to PACS confirming the catheter tip w ithin the superior vena cava. IMPRESSION: SUCCESSFUL PLACEMENT OF A 5 FR DUAL LUMEN 45 CM PICC IN THE LEFT BASILIC VEIN. COMMENT: Patient medication list reviewed: Yes- Quality ID# 130:Eligible professional attests to doc umenting in the medical record they obtained, updated, or reviewed the patient's current medications. . Quality ID 145: Final reports for procedures using fluoroscopy that document radiation exposure rene annie, or exposure time and number of fluorographic images (if radiation exposure indices are not avail able) Quality ID #76: The patient was prepped and draped using maximum sterile barrier technique including cap, mask, sterile gown, sterile gloves, a large sterile sheet, hand hygiene, and 2% Chlorhexidine fo r cutaneous antisepsis. When ultrasound is used, sterile ultrasound techniques are followed requiring sterile gel and sterile probes. TECHNICAL DOCUMENTATION: JOB ID: [id number] [employer]- All Rights Reserved rev-10/28 Reading location - IP/workstation name: [email or web address]
[2018-05-01] MEDS: KETOROLAC TROMETHAMINE INJ/PF 30 MG/1 ML SDV IV PRN ×2 (14:38→22:19)
--- NOTE | 2018-05-01 15:34 | PDOC DISCHARGE SUMMARY ---
General - Admit/Disc Date/PCP Admission Date/Primary Care Provider: 04/29/18 10:22 YENI ZAMARRIPA MD Discharge Date: 05/01/18 - Discharge Diagnosis (1) Sigmoid diverticulitis Is this a current diagnosis for this admission?: Yes Summary: Patient has been admitted for IV fluids as well as symptomatic cares. He will be treated with Invanz 1 g IV every 24 hours and a surgical consultation will be obtained to evaluate his recurrent sigmoid diverticulitis. 04/30/2018: IV fluids will be discontinued. Continue IV Invanz 1 g every 24 hours. Increase oral diet to regular diet with high fiber content plus add Metamucil and MiraLAX to increase fiber and Colace to increase stool volume and soften the stool. Encourage oral fluids. Plan possible discharge tomorrow after placement of a PICC line if the patient is stooling without pain or bleeding. 05/01/2018: Patient has done reasonably well following the plan outlined above. His PICC line has been placed and he is ready for discharge to home in improved and stable condition to receive his Invanz 1 g daily for the next 11 days via home health care infusion services. (2) Iatrogenic hypotension Is this a current diagnosis for this admission?: Yes Summary: Patient's blood pressures been noted to be relatively hypotensive to his usual baseline. I believe this is due to the effect of his metoprolol which he has continued to take despite having reduced his weight by 10% over the last several months. His metoprolol will be withheld and he will be continued on fluid support and observe for improvement or degradation of his blood pressure. 04/30/2018: Patient's blood pressures remained stable since discontinuation of his metoprolol. I recommend the patient that he not take metoprolol at home and in fact take no blood pressure medication until he has been reevaluated by his primary care provider. (3) Obesity (BMI 30.0-34.9) Is this a current diagnosis for this admission?: Yes Summary: Patient is actually lost approximately 10% of his body weight over the last several months. We briefly discussed weight loss however given his abdominal pain and other discomfort is felt that this topic could be discussed more effectively at a later time. 04/30/2018: Patient is going to be placed on a high-fiber regular diet with additional fiber and stool softening supplements. At this point in his treatment dietary attempts at weight loss probably not indicated. Once he is infection has resolved if he is going to wait for a period of observation prior to considering a colectomy would be appropriate for him to reduce his caloric intake and try to reduce his weight by another 10-20 kg. This would make him a much better surgical candidate and overall be generally a more healthy life choices. (4) Hypertension Is this a current diagnosis for this admission?: Yes Summary: The patient's essential hypertension his substantially improved with his weight loss and it may no longer require antihypertensive therapy. He has continued taking metoprolol although he did discontinue taking amlodipine. I will discontinue his metoprolol at this time and observe his blood pressure over his hospital course. 04/30/2018: Patient's metoprolol will be discontinued at this time. His blood pressures remained stable without the benefit of metoprolol and therefore I have asked him to not take any antihypertensive agents until following up with his primary care provider for reassessment. - Additional Information Resuscitation Status: Full Code Discharge Diet: Other (Comments) - High-fiber, avoid red meats, ground or chopped meats; prefer fish, eggs, dairy/soy proteins. Avoid high residue/high bulk foods. Discharge Activity: Activity As Tolerated Prescriptions: Docusate Sodium [Colace 100 mg Capsule] 200 mg PO BID 30 Days #120 capsule Ertapenem Sodium [Invanz Inj 1 gm Vial] 1 gm IV NOON 11 Days #11 vial Heparin Sodium,Porcine [Heparin Flush 10 Unit/ml 5 ml Disp.syrg] 30 unit IV .AFTER EACH USE PRN 30 Days #30 disp.syrin PRN Reason: Heparin Sodium,Porcine [Heparin Flush 10 Unit/ml 5 ml Disp.syrg] 30 unit IV Q12 30 Days #60 disp.syrin Morphine Sulfate [Morphine Ir 15 mg Tablet] 15 mg PO Q4 PRN 10 Days #30 tablet PRN Reason: Normal Saline [NaCl 0.9% Inj/Pf 10 ml Sdv] 10 ml IV .AFTER EACH USE PRN 30 Days #30 vial PRN Reason: Normal Saline [NaCl 0.9% Inj/Pf 10 ml Sdv] 10 ml IV Q12 30 Days #60 vial Psyllium Seed [Metamucil-Sf Powder 5.85 gm Packet] 1 packet PO BID 30 Days #60 packet Pyridoxine HCl [Vitamin B-6 Tablet 50 mg] 200 mg PO DAILY 30 Days #120 tablet Home Medications: Cholecalciferol (Vitamin D3) [Vitamin D3 2000 unit Tablet] 2,000 unit PO DAILY 04/29/18 Cyanocobalamin (Vitamin B-12) [B-12] 1,000 mcg PO DAILY 04/29/18 Lutein 10 mg PO DAILY 04/29/18 Multivitamin [Multiple Vitamins] 1 each PO DAILY 04/29/18 Docusate Sodium [Colace 100 mg Capsule] 200 mg PO BID 30 Days #120 capsule 05/01 Ertapenem Sodium [Invanz Inj 1 gm Vial] 1 gm IV NOON 11 Days #11 vial 05/01/18 Heparin Sodium,Porcine [Heparin Flush 10 Unit/ml 5 ml Disp.syrg] 30 unit IV .AFTER EACH USE PRN 30 Days #30 disp.syrin 05/01/18 Heparin Sodium,Porcine [Heparin Flush 10 Unit/ml 5 ml Disp.syrg] 30 unit IV Q12 30 Days #60 disp.syrin 05/01/18 Morphine Sulfate [Morphine Ir 15 mg Tablet] 15 mg PO Q4 PRN 10 Days #30 tablet 05/01/18 Normal Saline [NaCl 0.9% Inj/Pf 10 ml Sdv] 10 ml IV .AFTER EACH USE PRN 30 Days #30 vial 05/01/18 Normal Saline [NaCl 0.9% Inj/Pf 10 ml Sdv] 10 ml IV Q12 30 Days #60 vial Psyllium Seed [Metamucil-Sf Powder 5.85 gm Packet] 1 packet PO BID 30 Days #60 packet 05/01/18 Pyridoxine HCl [Vitamin B-6 Tablet 50 mg] 200 mg PO DAILY 30 Days #120 tablet History of Present Illness Patient complains of: Abdominal pain History of Present Illness: CRISTOBAL CHING is a 58 year old male who presents with a 4-1/2-month history of abdominal pain. He describes his abdominal pain as a sharp tearing sensation in his mid abdomen beginning at the level of the umbilicus and traveling down the midline over the pubis and into his scrotum and penis. He admits that at times it feels like a sharp hot bolt of pain starts at his " belly button" and shoots down and out his penis. The pain is definitely made worse by movement and palpation and is relieved at least in part by remaining still. The pain began again rather suddenly 1 day prior to admission and has been accompanied by a burning sensation in his urethra that is worsened by urination. He denies hematuria, nausea, vomiting, diarrhea and constipation. He relates that he began having pain in early December and at that time the pain was on the left lower quadrant of his abdomen and he was treated for an acute diverticulitis using Cipro and Flagyl. He did not tolerate Cipro very well ( nausea, vomiting and diarrhea) and he was subsequently changed to therapy with Levaquin and metronidazole. He seemed to improve while on the antibiotics however once he discontinued the antibiotics within 10-14 days he was back with a more intense episode of similar abdominal pain and eventually was hospitalized and received intravenous Levaquin and Flagyl. After his hospitalization he was placed on intravenous home therapy for 9 days and was then supposed to follow-up with 10 days of oral therapy which he was discouraged from doing by his primary care provider and his leaf sucker operator. After another 10-14 days off therapy he began experiencing discomfort again and at that time his primary care provider and leaf sucker operator agreed that he should go back on the Levaquin and metronidazole. He just finished that 10- day course of therapy approximately 10 days prior to this admission. In the emergency room he was found to have acute sigmoid diverticulitis on his CT scan of the abdomen with intravenous contrast only. He does not have leukocytosis or an anemia. He was mildly hypotensive in the emergency room and he explains that he has continued to take metoprolol despite his lower blood pressure because he was uncertain as to whether he should stop taking it or not. He indicates that he has lost approximately 27 pounds over the last several months and this he believes has resulted in his lower blood pressure and probable need to discontinue therapy. He had already discontinued taking amlodipine which he had prescribed along with the metoprolol for maintenance of his blood pressure control several months ago. With these findings he was admitted for IV fluid therapy and blood pressure support if required as well as initiation of IV antibiotic therapy and a surgical consultation to evaluate for possible sigmoid colectomy or left hemicolectomy to treat his chronic recurrent diverticulitis. Hospital Course Hospital Course: 04/30/2018: Patient states he is feeling considerably better today he has been able to continue tolerate oral feedings and would like to have more to eat. He has significantly less pain in his lower abdomen although the pain is still present and is still worsened by movement or palpation he feels that the intensity is substantially decreased. He has been urinating without difficulty or pain. He has not yet had a bowel movement nor has he passed flatus. He was seen by the ophthalmic surgical assistant, Dr. Conti who felt that the best approach would be to wait until his bowel has healed and at that point consider an elective sigmoid colectomy or waiting to see if he has another recurrence. If he were to have another recurrence Dr. Conti had indicated that at that point a sigmoid colectomy would be necessary. With Dr. Conti's consent the patient will be treated with a high-fiber diet and additional fiber and stool softeners will be added to the patient's regiment to promote soft easy to pass bowel movements. I will have a PICC line placed tomorrow consulting radiology. If patient is able to comfortably pass stool and flatus he may be discharged home for continued antibiotic therapy to complete what should probably be a 14-day course. Patient and his are very happy with his care so far and are looking forward to him being discharged in a timely manner with a more effective plan in place. 05/01/2018: Layne states that he is continuing to feel pretty well but had some lower abdominal pain again today after eating. He states he ate something today that he has not eaten in a long time and he is sure that the higher residue diet is responsible for some if not all of his abdominal pain. He was able to pass a stool without significant difficulty or pain and he has been voiding without difficulty. He denies nausea or vomiting and states that his pain though somewhat improved is still present especially after eating and still is of the same nature with discomfort from the umbilicus down to the groin and seemingly coming out the tip of the penis. After discussion he feels that he can control his pain at home utilizing oral pain medicine and that he would much rather be at home where he can be more relaxed, comfortable and in some time with his family while accomplishing the same and that he is achieving, while being hospitalized. He will plan to follow-up with Dr. Conti in 1-2 weeks at which time they will plan for an elective sigmoid colectomy surgery as indicated or other treatment as appropriate. With this plan in mind he was discharged home in improved and stable condition for treatment with home health and infusion services. He will be continued on Invanz 1 g daily for the next 11 days completing a 14-day course of IV antibiotic therapy. Physical Exam Vital Signs: Temp Pulse Resp BP Pulse Ox 98.1 F 60 18 132/68 H 97 05/01/18 12:00 05/01/18 12:00 05/01/18 12:00 05/01/18 12:00 05/01/18 12:00 Intake & Output 04/29/18 04/30/18 05/01/18 23:59 23:59 23:59 Intake Total 3471 3779 48 Balance 1711 3779 48 Weight 95 kg 95 kg 99.1 kg General appearance: PRESENT: no acute distress, cooperative Head exam: PRESENT: atraumatic, normocephalic Eye exam: PRESENT: conjunctiva pink, EOMI Ear exam: PRESENT: normal external ear exam Mouth exam: PRESENT: neck supple Respiratory exam: PRESENT: clear to auscultation enzo, symmetrical, unlabored Cardiovascular exam: PRESENT: RRR, other - No murmurs clicks gallops or rubs Vascular exam: PRESENT: normal capillary refill. ABSENT: pallor GI/Abdominal exam: PRESENT: normal bowel sounds, soft, tenderness - Midline tenderness from the umbilicus to the pubic symphysis. ABSENT: distended Rectal exam: PRESENT: deferred Extremities exam: ABSENT: joint swelling, pedal edema Musculoskeletal exam: PRESENT: ambulatory. ABSENT: deformity, dislocation Neurological exam: PRESENT: alert, oriented to person, oriented to place, oriented to time, oriented to situation, CN II-XII grossly intact. ABSENT: motor sensory deficit Psychiatric exam: PRESENT: appropriate affect, normal mood Skin exam: PRESENT: dry, intact, warm. ABSENT: jaundice, rash, urticaria Results Laboratory Results: 05/01/18 04:10 05/01/18 04:10 05/01/18 05/01/18 04:10 04:10 WBC 3.7 L RBC 4.20 L Hgb 12.9 L Hct 36.4 L MCV 87 MCH 30.7 MCHC 35.4 RDW 13.8 Plt Count 140 L Seg Neutrophils % 55.8 Lymphocytes % 30.6 Monocytes % 8.6 Eosinophils % 4.4 Basophils % 0.6 Absolute Neutrophils 2.1 Absolute Lymphocytes 1.1 Absolute Monocytes 0.3 Absolute Eosinophils 0.2 Absolute Basophils 0.0 Sodium 139.9 Potassium 4.1 Chloride 105 Carbon Dioxide 27 Anion Gap 8 BUN 12 Creatinine 0.96 Est GFR ( Amer) > 60 Est GFR (Non-Af Amer) > 60 Glucose 101 Calcium 8.7 Magnesium 2.0 Impressions: Abdomen/Pelvis CT 04/29/18 07:15 IMPRESSION: 1. Sigmoid diverticulosis with mild thickening and fat stranding with the mid sigmoid colon, slightly increased in severity compared to prior examination dated 03/05/2018. Findings are consistent with acute uncomplicated diverticulitis ; there is no evidence of perforation or abscess. 2. Unchanged and nonspecific enlarged retroperitoneal lymph nodes, largest periaortic nodes measuring 1.7 x 1.0 cm. 3. Numerous redemonstrated, predominantly pleural-based nodules of the included lung bases, similar in appearance to prior CT of the abdomen and pelvis. Recommend dedicated CT examination of the chest to further evaluate; differential considerations based on this limited imaging include atypical infection, metastatic pulmonary disease, and pulmonary sarcoidosis. Guidance Fluoroscopy 05/01/18 00:00 IMPRESSION: SUCCESSFUL PLACEMENT OF A 5 FR DUAL LUMEN 45 CM PICC IN THE LEFT BASILIC VEIN. Interventional Vascular Procedure 05/01/18 00:00 IMPRESSION: SUCCESSFUL PLACEMENT OF A 5 FR DUAL LUMEN 45 CM PICC IN THE LEFT BASILIC VEIN. PICC Line Insertion 05/01/18 00:00 IMPRESSION: SUCCESSFUL PLACEMENT OF A 5 FR DUAL LUMEN 45 CM PICC IN THE LEFT BASILIC VEIN. Qualifiers - * PATIENT BEING DISCHARGED WITH ANY OF THE FOLLOWING DIAGNOSIS: No Plan Discharge Plan: Discharged home with home health in improved and stable condition. Receive home health half-way care and management of daily IV infusion. Time Spent: Greater than 30 Minutes
[2018-05-01 20:13] VITALS: BP 131/76
[2018-05-01] MEDS ORDERED: NORMAL SALINE 10 ML SDV (SCHEDULED) IV SCH (22:00)
[2018-05-01] MEDS: ZOLPIDEM TARTRATE 5 MG TABLET PO PRN (22:19)
== END 2018-05-01 22:50 | disposition home health service (06) | DRG 392 ==
LOC: ER 06:43 → EH 10:22 → 5 11:27
PROVIDERS: ADMIT Emergency Medicine; ATTEND Emergency Medicine
PROC: 02HV33Z Insertion of Infusion Device into Superior Vena Cava, Percutaneous Approach (ICD-10-PCS; principal; 2018-05-01)
PROC: B518ZZA Fluoroscopy of Superior Vena Cava, Guidance (ICD-10-PCS; 2018-05-01)
PROC: B548ZZA Ultrasonography of Superior Vena Cava, Guidance (ICD-10-PCS; 2018-05-01)
DX: K57.32 Diverticulitis of large intestine without perforation or abscess without bleeding (principal); I95.89 Other hypotension; E66.9 Obesity, unspecified; T44.7X5A Adverse effect of beta-adrenoreceptor antagonists, initial encounter; I10 Essential (primary) hypertension; Z79.899 Other long term (current) drug therapy; Z88.0 Allergy status to penicillin; Z88.6 Allergy status to analgesic agent; Z88.8 Allergy status to other drugs, medicaments and biological substances; Z90.49 Acquired absence of other specified parts of digestive tract; Z82.49 Family history of ischemic heart disease and other diseases of the circulatory system
CPT/HCPCS: 36415; 36569; 74177; 76937; 77001; 80048; 80053; 80061; 80076; 81001; 83036; 83605; 83690; 83735; 84439; 84443; 84481; 85025; 87040; 96360; 96372; 99285; J0500; J1335; J1642; J1644; J1885; J3480; J3490; J7030; S0119

== ENCOUNTER → 2018-05-18 | Outpatient (CLI) | payer BC ==
--- NOTE | 2018-05-18 09:55 | RADIOLOGY REPORT (SQ) ---
EXAM DESCRIPTION: CT ABD/PELVIS WITH IV ORAL COMPLETED DATE/TIME: 05/18/2018 8:16 am REASON FOR STUDY: DIVERTICULITIS OF INTESTINE (K57.92) K57.92 DVTRCLI OF INTEST, PART UNSP, W/O PER F OR ABSCESS W/O COMPARISON: 04/06/2018 and 01/13/2018 TECHNIQUE: CT scan of the abdomen and pelvis performed using helical scanning technique with dynamic intravenous contrast injection. No oral contrast. Images reviewed with lung, soft tissue, and bone windows. Reconstructed coronal and sagittal MPR images reviewed. Delayed images for evaluation of the urinary system also acquired. All images stored on PACS. All CT scanners at this facility use dose modulation, iterative reconstruction, and/or weight based d osing when appropriate to reduce radiation dose to as low as reasonably achievable (ALARA). [facility]: Dose Right [facility]: CareDose [facility]: Dose Right [facility]: Teradose 4D [facility]: [employer] CONTRAST TYPE AND DOSE: contrast/concentration: Isovue 350.00 mg/ml; Total Contrast Delivered: 100.0 ml; Total Saline Delivered: 72.0 ml RENAL FUNCTION: Creatinine- 0.8 BUN=18 RADIATION DOSE: CT Rad equipment meets quality standard of care and radiation dose reduction techniq ues were employed. CTDIvol: 13.7 - 15.8 mGy. DLP: 1563 mGy-cm.. LIMITATIONS: None. FINDINGS: LOWER CHEST: Stable multiple, innumerable parenchymal and subpleural nodules in the lungs since the previous examinations dated 04/06/2018 and 01/13/2018. Stable nonenlarged bilateral cardioph renic lymph nodes. LIVER: Normal size. No masses. No dilated ducts. The hepatic and portal veins are patent. SPLEEN: Splenules, normal anatomic variant. PANCREAS: No masses. No significant calcifications. No adjacent inflammation or peripancreatic fluid collections. Pancreatic duct not dilated. GALLBLADDER: No identified stones by CT criteria. No inflammatory changes to suggest cholecystitis. ADRENAL GLANDS: No significant masses or asymmetry. RIGHT KIDNEY AND URETER: No solid masses. No significant calcifications. No hydronephrosis or hyd roureter. LEFT KIDNEY AND URETER: No solid masses. No significant calcifications. No hydronephrosis or hydr oureter. AORTA AND VESSELS: Mild atherosclerotic changes involving the abdominal aorta and branch vessels. N o aneurysm. No dissection. Renal arteries, SMA, celiac without stenosis. RETROPERITONEUM: Stable appearing retroperitoneal borderline to mildly prominent lymph nodes. BOWEL AND PERITONEAL CAVITY: Colonic diverticulosis involving the distal descending and sigmoid colo n. There is either incomplete distention with oral contrast or mild thickening of the colonic wall. Slight haziness and linear stranding in the surrounding fat. No evidence of abscess or perforation. These findings are similar in appearance to the examination dated 04/06/2018. Considerations for t hese findings include diverticulitis. No free fluid. APPENDIX: Prior appendectomy. PELVIS: No mass. No free fluid. The urinary bladder is incompletely distended. ABDOMINAL WALL: No masses. No hernias. BONES: The osseous structures are stable in appearance. Schmorl's node along the superior endplate of the L4 vertebra. OTHER: No other significant finding. IMPRESSION: 1. As on the previous examination dated 04/06/2018, colonic diverticulosis, more so in the region of the distal descending colon and sigmoid colon. Mild diffuse wall thickening and mild in flammatory changes involve the surrounding fat in the region of the distal descending and sigmoid col on. Considerations for these findings include diverticulitis. No abscess or perforation. 2. Stable multiple innumerable pulmonary nodules. 3. Additional stable findings as above. TECHNICAL DOCUMENTATION: JOB ID: [id number] Quality ID # [id number]: Final reports with documentation of one or more dose reduction techniques (e.g., Au tomated exposure control, adjustment of the mA and/or kV according to patient size, use of iterative reconstruction technique) 2010 [employer]- All Rights Reserved Reading location - IP/workstation name: [email or web address]
== END ==
LOC: RAD 07:32
PROVIDERS: ATTEND Surgery
DX: K57.92 Diverticulitis of intestine, part unspecified, without perforation or abscess without bleeding (principal); R91.8 Other nonspecific abnormal finding of lung field
CPT/HCPCS: 74177

== ENCOUNTER 2020-03-17 16:15 | Observation (INO) | payer BC ==
--- NOTE | 2020-03-17 17:05 | ER Document Report ---
ED Medical Screen (RME) - General Chief Complaint: Chest Pain Stated Complaint: CHEST PAIN Time Seen by Provider: 03/17/20 17:03 Primary Care Provider: DANIELLE SIMPSON MD [Primary Care Provider] - Follow up as needed Mode of Arrival: Ambulatory Information source: Patient Notes: HPI; 60-year-old male presents to the emergency room complaining of intermittent chest pain for the past week left-sided anterior describes it as a sharp stabbing pain. States it was worse today. Has been taking Nexium without relief. Denies any nausea, vomiting, no diaphoresis no cardiac family history. Negative catheterization in 2015. PE: Alert and oriented x3. Mild distress noted. Lungs: Clear to auscultation without rales, rhonchi, wheezes. Heart: Regular rate rhythm without murmurs, rubs, gallops. I have greeted and performed a rapid initial assessment of this patient. A comprehensive ED assessment and evaluation of the patient, analysis of test results and completion of the medical decision making process will be conducted by additional ED providers. I have specifically instructed the patient or family members with the patient to immediately return to any nursing staff should anything change in the patient's condition or with their chief complaint. TRAVEL OUTSIDE OF THE [place] IN LAST 30 DAYS: No - Related Data Allergies/Adverse Reactions: Penicillins Allergy (Severe, Verified 04/29/18 08:10) tetracycline [Tetracycline] Allergy (Intermediate, Verified 04/29/18 08:10) codeine [Codeine] Adverse Reaction (Intermediate, Verified 04/29/18 08:10) Nausea Past Medical History - Past Medical History Cardiac Medical History: Reports: Hx Hypertension - MEDICATED Denies: Hx Atrial Fibrillation, Hx Coronary Artery Disease, Hx DVT, Hx Heart Attack, Hx Hypercholesterolemia, Hx Pulmonary Embolism Pulmonary Medical History: Denies: Hx Asthma, Hx COPD, Hx Sleep Apnea, Hx Tuberculosis Neurological Medical History: Denies: Hx Cerebrovascular Accident, Hx Migraine, Hx Seizures Endocrine Medical History: Denies: Hx Diabetes Mellitus Type 1, Hx Diabetes Mellitus Type 2, Hx Hyperthyroidism, Hx Hypothyroidism Renal/ Medical History: Denies: Hx Peritoneal Dialysis GI Medical History: Reports: Hx Diverticulitis. Denies: Hx Crohn's Disease, Hx Hepatitis, Hx Hiatal Hernia, Hx Ulcer, Hx Ulcerative Colitis Musculoskeltal Medical History: Denies Hx Arthritis, Denies Hx Gout Skin Medical History: Denies Hx Eczema, Denies Hx Psoriasis Psychiatric Medical History: Denies: Hx Depression Infectious Medical History: Denies: Hx Hepatitis Past Surgical History: Reports: Hx Appendectomy, Hx Neurologic Surgery - Removal of benign brain tumor. Denies: Hx Cardiac Catheterization, Hx Coronary Stent, Hx Open Heart Surgery, Hx Pacemaker Physical Exam - Vital signs Vitals: Temp Pulse Resp BP Pulse Ox 97.3 F 78 20 142/77 H 99 03/17/20 16:27 03/17/20 16:27 03/17/20 16:27 03/17/20 16:27 03/17/20 16:27 Course - Vital Signs Vital signs: Temp Pulse Resp BP Pulse Ox 97.3 F 78 20 142/77 H 99 03/17/20 16:27 03/17/20 16:27 03/17/20 16:27 03/17/20 16:27 03/17/20 16:27 Doctor's Discharge - Discharge Referrals: DANIELLE SIMPSON MD [Primary Care Provider] - Follow up as needed
[2020-03-17 17:25] LABS: ABSOLUTE EOSINOPHILS # (AUTO) 0.3 10^3/uL (0.0-0.6); ABSOLUTE LYMPHOCYTES (AUTO) 1.7 10^3/uL (0.5-4.7); ABSOLUTE MONOCYTES (AUTO) 0.4 10^3/uL (0.1-1.4); ABSOLUTE NEUT (AUTO) 2.3 10^3/uL (1.7-8.2); RED CELL DISTRIBUTION WIDTH 13.2 % (11.5-14.0); TOTAL CELLS COUNTED % (AUTO) 100 %; WHITE BLOOD COUNT 4.6 10^3/uL (4.0-10.5)
[2020-03-17 17:32] LABS: BASOPHILS % (AUTO) 0.9 % (0-2); EOSINOPHILS % (AUTO) 5.4 % (0-6); HEMATOCRIT 41.7 % (37.9-51.0); HEMOGLOBIN 15.1 g/dL (13.5-17.0); LYMPHOCYTES % (AUTO) 36.4 % (13-45); MEAN CORPUSCULAR HEMOGLOBIN 30.6 pg (27.0-33.4); MEAN CORPUSCULAR HGB CONC 36.3 g/dL (32.0-36.0); MEAN CORPUSCULAR VOLUME 84 fl (80-97); MONOCYTES % (AUTO) 8.2 % (3-13); PLATELET COUNT 188 10^3/uL (150-450); RED BLOOD COUNT 4.94 10^6/uL (4.35-5.55); SEGMENTED NEUTROPHILS % (AUTO) 49.1 % (42-78)
[2020-03-17 17:49] LABS: ALBUMIN 4.4 g/dL (3.5-5.0); ALKALINE PHOSPHATASE 77 U/L (38-126); ANION GAP 12 (5-19); ASPARTATE AMINO TRANSFERASE 24 U/L (17-59); BILIRUBIN,DIRECT 0.3 mg/dL (0.0-0.4); BILIRUBIN,TOTAL 0.7 mg/dL (0.2-1.3); BLOOD UREA NITROGEN 15 mg/dL (7-20); CALCIUM 9.8 mg/dL (8.4-10.2); CARBON DIOXIDE 27 mmol/L (22-30); CHLORIDE 101 mmol/L (98-107); CREATINE KINASE 57 U/L (55-170); GLUCOSE 106 mg/dL (75-110); POTASSIUM 4.4 mmol/L (3.6-5.0); TOTAL PROTEIN 7.3 g/dL (6.3-8.2)
--- NOTE | 2020-03-17 17:52 | RADIOLOGY REPORT (SQ) ---
EXAM DESCRIPTION: CHEST 2 VIEWS IMAGES COMPLETED DATE/TIME: 03/17/2020 5:37 pm REASON FOR STUDY: chest pain COMPARISON: 07/16/2015 TECHNIQUE: Frontal and lateral radiographic views of the chest acquired. NUMBER OF VIEWS: Two view. LIMITATIONS: None. FINDINGS: LUNGS AND PLEURA: No pneumothorax. No consolidation or pleural effusion. MEDIASTINUM AND HILAR STRUCTURES: Stable. HEART AND VASCULAR STRUCTURES: Stable. BONES: No acute findings. HARDWARE: None in the chest. OTHER: No other significant finding. IMPRESSION: NO ACUTE FINDINGS. TECHNICAL DOCUMENTATION: JOB ID: [id number] [place]-[id number] 2010 [employer]- All Rights Reserved Reading location - IP/workstation name: [email or web address]
[2020-03-17 17:58] LABS: CREATINE KINASE MB 0.81 ng/mL (<4.55)
[2020-03-17 18:05] LABS: TROPONIN I < 0.012 ng/mL
--- NOTE | 2020-03-17 23:10 | ER Document Report ---
ED Cardiac - General Chief Complaint: Chest Pain Stated Complaint: CHEST PAIN Time Seen by Provider: 03/17/20 17:03 Mode of Arrival: Ambulatory TRAVEL OUTSIDE OF THE [place] IN LAST 30 DAYS: No - HPI Patient complains to provider of: Chest pain Chest pain radiation location: None Cardiac risk factors: Hypertension, + Family history Positive cardiac history: No Associated symptoms: denies: Back pain, Diaphoresis, Dizziness, Headache, Heartburn, Rash, Shortness of breath, Syncope Exacerbated by: Denies Relieved by: Nothing Notes: Patient is a 60-year-old male with a past medical history of hypertension who presents with left-sided intermittent chest pain. Patient states he has had these symptoms intermittently since June. He has seen numerous specialists and had CAT scans, endoscopy, colonoscopy, stress test. Patient states that the stress test was abnormal several years ago. Patient states that symptoms resolved. He states that this week, the chest pain returned and has been more frequent. He describes it as episodes of very sharp pain that sometimes cause him to double over in pain. It lasts several seconds. He denies any back pain. He does not have any PE risk factors. Patient has had several episodes of this while I was in the room. States he has been trying Nexium without relief. He did have one baby aspirin today. He denies any cough or recent illnesses. - Related Data Allergies/Adverse Reactions: Penicillins Allergy (Severe, Verified 04/29/18 08:10) tetracycline [Tetracycline] Allergy (Intermediate, Verified 04/29/18 08:10) codeine [Codeine] Adverse Reaction (Intermediate, Verified 04/29/18 08:10) Nausea Past Medical History - General Information source: Patient - Social History Smoking Status: Never Smoker Family History: Hypertension - Past Medical History Cardiac Medical History: Reports: Hx Hypertension - MEDICATED Denies: Hx Atrial Fibrillation, Hx Coronary Artery Disease, Hx DVT, Hx Heart Attack, Hx Hypercholesterolemia, Hx Pulmonary Embolism Pulmonary Medical History: Denies: Hx Asthma, Hx COPD, Hx Sleep Apnea, Hx Tuberculosis Neurological Medical History: Denies: Hx Cerebrovascular Accident, Hx Migraine, Hx Seizures Endocrine Medical History: Denies: Hx Diabetes Mellitus Type 1, Hx Diabetes Mellitus Type 2, Hx Hyperthyroidism, Hx Hypothyroidism Renal/ Medical History: Denies: Hx Peritoneal Dialysis GI Medical History: Reports: Hx Diverticulitis. Denies: Hx Crohn's Disease, Hx Hepatitis, Hx Hiatal Hernia, Hx Ulcer, Hx Ulcerative Colitis Musculoskeletal Medical History: Denies Hx Arthritis, Denies Hx Gout Skin Medical History: Denies Hx Eczema, Denies Hx Psoriasis Psychiatric Medical History: Denies: Hx Depression Infectious Medical History: Denies: Hx Hepatitis Past Surgical History: Reports: Hx Appendectomy, Hx Neurologic Surgery - Removal of benign brain tumor. Denies: Hx Cardiac Catheterization, Hx Coronary Stent, Hx Open Heart Surgery, Hx Pacemaker Review of Systems - Review of Systems Notes: CONSTITUTIONAL: No fever, fatigue or weight loss. SKIN: No rash. HENT: No congestion, ear pain, or sore throat. EYES: No recent vision problems or eye pain. ENDOCRINE: No polyuria or polydipsia. CARDIOVASCULAR: Positive for chest pain. RESPIRATORY: No cough, shortness of breath, congestion, or wheezing. GASTROINTESTINAL: No abdominal pain, nausea, vomiting, bloody stools or diarrhea. GENITOURINARY: No dysuria. MUSCULOSKELETAL: No joint pain or swelling. LYMPHATIC: No swollen glands. NEUROLOGIC: No seizures. No headache, focal weakness or sensory changes. HEMATOLOGIC: No unusual bruising or bleeding. PSYCHIATRIC: No depression or anxiety. Physical Exam - Vital signs Vitals: Temp Pulse Resp BP Pulse Ox 97.3 F 78 20 142/77 H 99 03/17/20 16:27 03/17/20 16:27 03/17/20 16:27 03/17/20 16:27 03/17/20 16:27 Notes: VITAL SIGNS: Within normal limits. GENERAL: No acute distress, non-toxic appearance. HEAD: Normal with no signs of head trauma. EYES: EOMI, conjunctiva normal, no discharge. EARS: Hearing grossly intact. NOSE: Normal. NECK: Normal range of motion, no tenderness, supple, no lymphadenopathy, No adenopathy, no JVD. CHEST: Clear breath sounds bilaterally. No wheezes, rales, or rhonchi. Pain is nonreproducible. CARDIAC: Regular rate and rhythm. S1 and S2, without murmurs, gallops, or rubs. VASCULAR: No Edema. ABDOMEN: Normal and soft with no tenderness, no masses or pulsatile masses. GENITOURINARY: Normal, No tenderness LYMPATHTIC: No lymphadenopathy noted. MUSCULOSKELETAL: Good range of motion of all major joints. Extremities without clubbing, cyanosis or edema. NEUROLOGICAL: Alert and oriented x 3. No focal sensory or strength deficits. Speech normal. Follows commands appropriately. PSYCHIATRIC: Normal Affect, judgement and mood. SKIN: Normal appearance with no rashes or lesions. Course - Re-evaluation Re-evalutation: 03/18/20 00:13 Heart score 3 03/18/20 02:31 Patient had 3 episodes of the chest pain while I was in the room. This then resolved. He does become acutely distressed when the episodes occur. I repeated an EKG and there is some abberant complex present that was not present before. I am unsure of the significance of this. Patient was given 3 baby aspirin as he already had one today. I did discuss risk factors with the patient. He had 2- troponins. Patient and his are uncomfortable going home as the severity and recurrence of the chest pain is increasing while he has been in the ER. I did discuss with the hospitalist for admission for cardiac work-up. Patient will be admitted to the hospitalist service. He is in agreement. - Vital Signs Vital signs: Temp Pulse Resp BP Pulse Ox 97.3 F 78 17 138/87 H 96 03/17/20 16:27 03/17/20 16:27 03/18/20 01:01 03/18/20 01:01 03/18/20 01:01 - Laboratory Result Diagrams: 03/17/20 17:09 03/17/20 17:09 Laboratory results interpreted by me: 03/17/20 17:09 [facility] 36.3 H - Diagnostic Test Radiology reviewed: Image reviewed, Reports reviewed - EKG Interpretation by [place] EKG shows normal: Sinus rhythm Rate: Normal When compared to previous EKG there are: Previous EKG unavailable Additional EKG results interpreted by me: 03/17/20 22:52 EKG interpreted by me. Sinus rhythm at a rate of 74. QTc 440. No acute ST changes. No previous EKG available for comparison. 03/18/20 02:20 Repeat EKG shows sinus rhythm with a rate of 63. QTC 439. There is an abberant complex in V1, V2, V3. No acute ST changes. Discharge - Discharge Clinical Impression: Chest pain Qualifiers: Chest pain type: other chest pain Qualified Code(s): R07.89 - Other chest pain Condition: Stable Disposition: ADMITTED OBSERVATION Admitting Provider: Miguelangel (Hospitalist) Unit Admitted: Telemetry
[2020-03-17] MEDS ORDERED: ASPIRIN 81 MG TABLET, CHEWABLE PO ONE (23:13)
[2020-03-18] MEDS ORDERED: MAG HYDROX/AL HYDROX/SIMETH SUSP 30 ML UDCUP PO PRN (01:20)
[2020-03-18] MEDS ORDERED: ONDANSETRON HCL INJ/PF 4 MG/2 ML SDV IV PRN (01:20)
[2020-03-18] MEDS ORDERED: MAGNESIUM HYDROXIDE SUSP 30 ML UDCUP PO PRN (01:20)
[2020-03-18] MEDS ORDERED: KETOROLAC TROMETHAMINE INJ/PF 30 MG/1 ML SDV IV PRN (01:27)
[2020-03-18] MEDS ORDERED: GUAIFENESIN SYRP 200 MG/10 ML UDC PO PRN (01:28)
[2020-03-18] MEDS ORDERED: MELATONIN 5 MG TABLET PO PRN (01:28)
[2020-03-18] MEDS ORDERED: LORAZEPAM INJ 2 MG/1 ML VIAL IV PRN (01:28)
[2020-03-18] MEDS ORDERED: METOPROLOL TARTRATE PF/INJ 5 MG/5 ML SDV IV PRN (01:28)
[2020-03-18 03:26] LABS: CREATINE KINASE MB 0.73 ng/mL (<4.55)
[2020-03-18 03:31] LABS: TROPONIN I < 0.012 ng/mL
--- NOTE | 2020-03-18 04:06 | PDOC H&P ---
History of Present Illness Admission Date/PCP: 03/18/2020 00:40 YENI ZAMARRIPA MD Patient complains of: Pleuritic chest pain History of Present Illness: CRISTOBAL CHING is a 60 year old male who presented the emergency room with a one-week history of chest pain. He admits progressively worsening and more frequent intermittent episodes of severely sharp stabbing pain in his left anterior chest lasting for a few seconds and resolving. His pain is associated with a concurrent brief episode of dyspnea. He admits a prior similar episode of pain earlier this year that was evaluated by several specialists and involve numerous tests including CAT scans, endoscopy, colonoscopy and a cardiac stress test. After a period of time his symptoms resolved until beginning again last week. He has taken baby aspirin and Nexium at home without relief. He denies other associated or accompanying signs and symptoms. He has not identified any aggravating or ameliorating factors for his chest pain. In the emergency room he had an EKG and cardiac enzymes x2- for cardiac ischemia or myocardial injury. He continued to have episodes of chest pain and at the emergency room providers insistence he was admitted to observation status, an echocardiogram was ordered and a cardiology consultation will be obtained with Dr. Dukes. Past Medical History Cardiac Medical History: Reports: Hypertension - MEDICATED Denies: Atrial Fibrillation, Coronary Artery Disease, DVT, Myocardial Infarction, Hyperlipidema, Pulmonary Embolism Pulmonary Medical History: Denies: Asthma, Chronic Obstructive Pulmonary Disease (COPD), Sleep Apnea, Tuberculosis EENT Medical History: Denies: Cataracts, Ears - Hearing aids Neurological Medical History: Denies: Hemorrhagic CVA, Ischemic CVA, Migraine, Seizures Endocrine Medical History: Denies: Diabetes Mellitus Type 1, Diabetes Mellitus Type 2, Hyperthyroidism, Hypothyroidism Renal/ Medical History: Denies: Chronic Kidney Disease, Nephrolithiasis Malignancy Medical History: Reports: None GI Medical History: Reports: Diverticulitis Denies: Crohn's Disease, Hepatitis, Hiatal Hernia, Ulcerative Colitis Musculoskeltal Medical History: Denies: Arthritis, Gout Skin Medical History: Denies: Eczema, Psoriasis Psychiatric Medical History: Denies: Alcohol Dependency, Depression, Substance Abuse, Tobacco Dependency Traumatic Medical History: Reports: None Hematology: Denies: Anemia, Bleeding Tendencies Infectious Medical History: Reports: None Past Surgical History Past Surgical History: Reports: Appendectomy, Other - EGD, colonoscopy Social History Information Source: Patient Lives with: Spouse/Significant other Smoking Status: Never Smoker Electronic Cigarette use?: No Frequency of Alcohol Use: None Hx Recreational Drug Use: No Drugs: None Hx Prescription Drug Abuse: No - Advance Directive Resuscitation Status: Full Code Surrogate healthcare decision maker:: Tiana Saleney Family History Family History: Hypertension. denies: CAD, DM, Malignancy Parental Family History Reviewed: Yes Children Family History Reviewed: No Sibling(s) Family History Reviewed.: Yes Medication/Allergy Home Medications: Cholecalciferol (Vitamin D3) [Vitamin D3 2000 unit Tablet] 2,000 unit PO DAILY 04/29/18 Cyanocobalamin (Vitamin B-12) [B-12] 1,000 mcg PO DAILY 04/29/18 Lutein 10 mg PO DAILY 04/29/18 Multivitamin [Multiple Vitamins] 1 each PO DAILY 04/29/18 Docusate Sodium [Colace 100 mg Capsule] 200 mg PO BID 30 Days #120 capsule 05/01/18 Ertapenem Sodium [Invanz Inj 1 gm Vial] 1 gm IV NOON 11 Days #11 vial 05/01/18 Heparin Sodium,Porcine [Heparin Flush 10 Unit/ml 5 ml Disp.syrg] 30 unit IV .AFTER EACH USE PRN 30 Days #30 disp.syrin 05/01/18 Heparin Sodium,Porcine [Heparin Flush 10 Unit/ml 5 ml Disp.syrg] 30 unit IV Q12 30 Days #60 disp.syrin 05/01/18 Morphine Sulfate [Morphine Ir 15 mg Tablet] 15 mg PO Q4 PRN 10 Days #30 tablet 05/01/18 Normal Saline [NaCl 0.9% Inj/Pf 10 ml Sdv] 10 ml IV .AFTER EACH USE PRN 30 Days #30 vial 05/01/18 Normal Saline [NaCl 0.9% Inj/Pf 10 ml Sdv] 10 ml IV Q12 30 Days #60 vial 05/01/18 Psyllium Seed [Metamucil-Sf Powder 5.85 gm Packet] 1 packet PO BID 30 Days #60 packet 05/01/18 Pyridoxine HCl [Vitamin B-6 Tablet 50 mg] 200 mg PO DAILY 30 Days #120 tablet 05/01/18 Allergies/Adverse Reactions: Penicillins Allergy (Severe, Verified 04/29/18 08:10) tetracycline [Tetracycline] Allergy (Intermediate, Verified 04/29/18 08:10) codeine [Codeine] Adverse Reaction (Intermediate, Verified 04/29/18 08:10) Nausea Review of Systems Constitutional: ABSENT: chills, fever(s) Eyes: ABSENT: visual disturbances, other - Eye pain Ears: ABSENT: hearing changes, other - Ear pain Nose, Mouth, and Throat: ABSENT: headache(s), sore throat Cardiovascular: PRESENT: as per HPI, chest pain. ABSENT: palpitations Respiratory: PRESENT: as per HPI, dyspnea. ABSENT: cough Gastrointestinal: ABSENT: abdominal pain, constipation, diarrhea, nausea, vomiting Genitourinary: ABSENT: dysuria, hematuria Musculoskeletal: ABSENT: back pain, joint swelling Integumentary: ABSENT: pruritus, rash Neurological: ABSENT: confusion, convulsions, focal weakness, memory loss, syncope Psychiatric: ABSENT: anxiety, depression Endocrine: ABSENT: cold intolerance, heat intolerance Hematologic/Lymphatic: ABSENT: easy bleeding, easy bruising Allergic/Immunologic: ABSENT: seasonal rhinorrhea Physical Exam Vital Signs: Temp Pulse Resp BP Pulse Ox 97.3 F 78 22 H 125/57 L 99 03/17/20 16:27 03/17/20 16:27 03/18/20 00:01 03/18/20 00:01 03/18/20 00:15 Intake & Output 03/16/20 03/17/20 03/18/20 23:59 23:59 23:59 Weight 99.79 kg General appearance: PRESENT: no acute distress, cooperative, obese Head exam: PRESENT: atraumatic, normocephalic Eye exam: PRESENT: conjunctiva pink. ABSENT: conjunctival injection, scleral icterus Ear exam: PRESENT: normal external ear exam. ABSENT: bleeding, drainage Mouth exam: PRESENT: dry mucosa, neck supple Neck exam: ABSENT: thyromegaly, tracheal deviation Respiratory exam: PRESENT: clear to auscultation enzo, symmetrical, unlabored Cardiovascular exam: PRESENT: RRR. ABSENT: clicks, gallop, rubs Pulses: PRESENT: normal radial pulses, normal dorsalis pedis pul Vascular exam: PRESENT: normal capillary refill. ABSENT: pallor GI/Abdominal exam: PRESENT: normal bowel sounds, soft. ABSENT: tenderness Rectal exam: PRESENT: deferred Extremities exam: ABSENT: joint swelling, pedal edema Musculoskeletal exam: ABSENT: deformity, dislocation Neurological exam: PRESENT: alert, oriented to person, oriented to place, oriented to time, oriented to situation, CN II-XII grossly intact. ABSENT: motor sensory deficit Psychiatric exam: PRESENT: anxious, normal mood Skin exam: PRESENT: dry, intact, warm. ABSENT: jaundice, rash, urticaria Results Laboratory Results: 03/17/20 17:09 03/17/20 17:09 03/17/20 03/17/20 17:09 17:09 WBC 4.6 RBC 4.94 Hgb 15.1 Hct 41.7 MCV 84 MCH 30.6 MCHC 36.3 H RDW 13.2 Plt Count 188 Seg Neutrophils % 49.1 Sodium 139.5 Potassium 4.4 Chloride 101 Carbon Dioxide 27 Anion Gap 12 BUN 15 Creatinine 0.93 Est GFR ( Amer) > 60 Glucose 106 Calcium 9.8 Total Bilirubin 0.7 AST 24 Alkaline Phosphatase 77 Total Protein 7.3 Albumin 4.4 03/17/20 03/17/20 03/17/20 17:09 17:09 20:27 Creatine Kinase 57 CK-MB (CK-2) 0.81 Troponin I < 0.012 < 0.012 Impressions: Chest X-Ray 03/17/20 17:03 IMPRESSION: NO ACUTE FINDINGS. Assessment and Plan - Diagnosis (1) Chest pain Qualifiers: Chest pain type: other chest pain Qualified Code(s): R07.89 - Other chest pain; R07.8 - Other chest pain Is this a current diagnosis for this admission?: Yes (2) Hypertension Qualifiers: Hypertension type: essential hypertension Qualified Code(s): I10 - Essential (primary) hypertension Is this a current diagnosis for this admission?: Yes (3) History of colonic diverticulitis Is this a current diagnosis for this admission?: Yes (4) DVT prophylaxis Is this a current diagnosis for this admission?: Yes - Plan Summary Summary: Patient is admitted on observation status in a telemetry bed where he will receive routine supportive and symptomatic cares. Serial cardiac enzymes will be obtained. A cardiology consultation with Dr. Dukes will be obtained. An echocardiogram will be obtained. Patient will receive Toradol 30 mg IV every 6 hours as needed for control of his pleuritic chest pain. He will receive Ativan 1 mg IV every 4 hours as needed for anxiety or restlessness. He will be on a cardiac diet. Additional laboratory and/or radiographic evaluations will be obtained as needed. - Time Time Spent with patient: Less than 15 minutes Medications reviewed and adjusted accordingly: Yes Anticipated Discharge Disposition: Home, Self Care Anticipated Discharge Timeframe: within 24 hours - Inpatient Certification Based on my medical assessment, after consideration of the patient's comorbidities, presenting symptoms, or acuity I expect that the services needed warrant INPATIENT care.: No I certify that my determination is in accordance with my understanding of Medicare's requirements for reasonable and necessary INPATIENT services [42 CFR 412.3e].: No
[2020-03-18] MEDS: HEPARIN SOD (PORCINE) 5,000 UNIT/ML 1 ML VIAL SUBCUT SCH ×3 (05:05→22:47)
[2020-03-18 10:36] LABS: TROPONIN I < 0.012 ng/mL
[2020-03-18] MEDS: FAMOTIDINE 20 MG TABLET PO SCH ×2 (10:54→22:48)
[2020-03-18] MEDS: DOCUSATE SODIUM 100 MG CAPSULE PO SCH ×2 (10:54→17:26)
[2020-03-18] MEDS ORDERED: GLUCAGON,HUMAN RECOMB 1 MG INJ SUBCUT PRN (14:27)
[2020-03-18] MEDS ORDERED: DEXTROSE 50%-WATER 25 GM/50 ML DISP.SYRIN IV PRN ×2 (14:27)
[2020-03-18] MEDS ORDERED: DEXTROSE 40% GEL 15 GM TUBE PO PRN ×2 (14:27)
--- NOTE | 2020-03-18 14:59 | XCELERA REPORT ---
[address] [address] Transthoracic Echocardiogram Report Name: CRISTOBAL CHING Age: 60 yrs Gender: Male : 1960 Patient Status: Inpatient Patient Location: [address] [place], [place] [address] Study Date: 03/18/2020 08:30 AM Height: 68 in Weight: 220 lb BSA: 2.1 m2 Procedure: A complete two-dimensional transthoracic echocardiogram was performed (2D, M-mode, spectral and color flow Doppler). The study was technically limited with all images being suboptimal in quality. Reason For Study: Atypical chest pain Ordering Physician: RANI TYLER Performed By: Melba Mcclain Interpretation Summary Technically difficult study. There is mild concentric left ventricular hypertrophy. Left ventricular systolic function is normal. The Ejection Fraction estimate is 65-70%. Doppler measurements suggest impaired left ventricular relaxation, which is associated with grade I/IV or mild diastolic dysfunction. The left ventricular wall motion is normal. There is no thrombus. The aortic valve is not well visualized secondary to technical limitations. Cannot completly rule out a bicuspid valve. Trace TR. Small, hemodynamically insignificant anterior pericardial effusion. No prior studies for comparison. MMode/2D Measurements & Calculations RVDd: 2.3 cm LVIDd: 3.1 cm FS: 31.2 % Ao root diam: 3.2 cm IVSd: 1.2 cm LVIDs: 2.1 cm EDV(Teich): 37.1 ml Ao root area: 7.8 cm2 LVPWd: 1.1 cm ESV(Teich): 14.6 ml EF(Teich): 60.5 % Doppler Measurements & Calculations MV E max rebekah: MV dec slope: Ao V2 max: LV V1 max P.5 cm/sec 390.0 cm/sec2 98.4 cm/sec 3.6 mmHg MV A max rebekah: MV dec time: 0.18 sec Ao max PG: LV V1 max: 85.3 cm/sec 3.9 mmHg 95.1 cm/sec MV E/A: 0.84 PA V2 max: TR max rebekah: 85.7 cm/sec 224.5 cm/sec PA max P.9 mmHg TR max P.2 mmHg Left Ventricle There is mild concentric left ventricular hypertrophy. Left ventricular systolic function is normal. The Ejection Fraction estimate is 65-70%. Doppler measurements suggest impaired left ventricular relaxation, which is associated with grade I/IV or mild diastolic dysfunction. The left ventricular wall motion is normal. There is no thrombus. Right Ventricle The right ventricle is grossly normal size. The right ventricular systolic function is normal. Atria The right atrium is normal. The left atrial size is normal. The interatrial septum is difficult to see, but appears to be grossly normal. Mitral Valve The mitral valve is normal in structure and function. There is a trace amount of mitral regurgitation. Aortic Valve The aortic valve is not well visualized secondary to technical limitations. Cannot completly rule out a bicuspid valve. No aortic regurgitation is present. Tricuspid Valve The tricuspid is normal in structure and function. There is a trace or physiologic amount of tricuspid regurgitation. Pulmonic Valve The pulmonic valve is normal in structure and function. Effusions Small, hemodynamically insignificant anterior pericardial effusion. : RANI TYLER Antonio
[2020-03-18 15:54] LABS: CREATINE KINASE MB 0.58 ng/mL (<4.55)
[2020-03-18 16:00] LABS: TROPONIN I < 0.012 ng/mL
--- NOTE | 2020-03-18 16:10 | PDOC CONSULTATION ---
Consultation Consult Date: 03/18/20 Attending physician:: RANI TYLER Provider Consulted: HERIBERTO CARSON Consult reason:: Atypical CP History of Present Illness Admission Date/PCP: 03/18/20 01:12 YENI ZAMARRIPA MD History of Present Illness: CRISTOBAL CHING is a 60 year old male with history of hypertension, diverticulosis, lung sarcoid and left sciatica who is consulted to our service for evaluation of atypical chest pain. The patient states that he has had these kind of chest pain for a long time but it continues to recur. He describes it as a very sharp pain, localized to a very discrete area over the left breast proximal to the nipple. Lasting for approximately 40 seconds, not associated with shortness of breath, dizziness, lightheadedness, syncope or presyncope, without known triggers and nonpleuritic. The patient states that he had a left heart catheterization in 2014 demonstrating a 30% stenosis in an unknown vessel. He was prescribed 80 mg of Lipitor by his paint line operator back in 2014 however he developed severe and generalized muscle pains and he discontinued the medication. He was later switched to Crestor 5 mg daily but he never took the medication. He has remained asymptomatic since admission and his telemetry shows normal sinus rhythm. Physical exam on 03/18/2020: GENERAL: Pleasant and conversational. Eating breakfast. Oriented x3 with normal mood. Not in acute distress. Well groomed and well developed. HEENT: Normocephalic, atraumatic. Pupils equal. Sclerae anicteric. Oropharynx moist. NECK: No JVD. No carotid bruits. LUNGS: Clear to auscultation bilaterally. Normal respiratory effort without the use of accessory muscles or intercostal retractions. CARDIOVASCULAR: Regular rate and rhythm, normal S1 and S2 without murmurs, rubs, or gallops. PMI not displaced. ABDOMEN: No masses or tenderness to palpation. No bruit. No splenomegaly or hepatomegaly. No abdominal aorta bruit noted. EXTREMITIES: No edema, no cyanosis, no clubbing. +2 pulses femoral and pedal pulses bilaterally. SKIN: No lesions or rashes. MUSCULOSKELETAL: No chest tenderness to palpation. NEUROLOGIC: Nonfocal. No gross sensory or motor deficits bilateral upper or lower extremities. Cardiac studies: Echocardiogram on 03/18/2020: -EF greater than 65%. -Small, hemodynamically insignificant anterior pericardial effusion. -Grade 1 diastolic dysfunction. -No regional wall motion abnormalities. -The aortic valve was not well visualized. -Mild, concentric LVH. Past Medical History Cardiac Medical History: Reports: Hypertension - MEDICATED Denies: Atrial Fibrillation, Coronary Artery Disease, DVT, Myocardial Infarction, Hyperlipidema, Pulmonary Embolism Pulmonary Medical History: Denies: Asthma, Chronic Obstructive Pulmonary Disease (COPD), Sleep Apnea, Tuberculosis EENT Medical History: Denies: Cataracts, Ears - Hearing aids Neurological Medical History: Denies: Hemorrhagic CVA, Ischemic CVA, Migraine, Seizures Endocrine Medical History: Denies: Diabetes Mellitus Type 1, Diabetes Mellitus Type 2, Hyperthyroidism, Hypothyroidism Renal/ Medical History: Denies: Chronic Kidney Disease, Nephrolithiasis Malignancy Medical History: Reports: None GI Medical History: Reports: Diverticulitis Denies: Crohn's Disease, Hepatitis, Hiatal Hernia, Ulcerative Colitis Musculoskeltal Medical History: Denies: Arthritis, Gout Skin Medical History: Denies: Eczema, Psoriasis Psychiatric Medical History: Denies: Alcohol Dependency, Depression, Substance Abuse, Tobacco Dependency Traumatic Medical History: Reports: None Hematology: Denies: Anemia, Bleeding Tendencies Infectious Medical History: Reports: None Past Surgical History Past Surgical History: Reports: Appendectomy, Other - EGD, colonoscopy Denies: Cardiac Catheterization, Coronary Stent, Pacemaker Social History Lives with: Spouse/Significant other Smoking Status: Never Smoker Electronic Cigarette use?: No Frequency of Alcohol Use: None Hx Recreational Drug Use: No Drugs: None Hx Prescription Drug Abuse: No - Advance Directive Resuscitation Status: Full Code Family History Family History: Hypertension. denies: CAD, DM, Malignancy Parental Family History Reviewed: Yes Children Family History Reviewed: Yes Sibling(s) Family History Reviewed.: Yes Medication/Allergy Home Medications: Esomeprazole Magnesium 40 mg PO QAM 03/18/20 Olmesartan Medoxomil [Benicar] 20 mg PO DAILY 03/18/20 Allergies/Adverse Reactions: Penicillins Allergy (Severe, Verified 04/29/18 08:10) tetracycline [Tetracycline] Allergy (Intermediate, Verified 04/29/18 08:10) codeine [Codeine] Adverse Reaction (Intermediate, Verified 04/29/18 08:10) Nausea Physical Exam Vital Signs: Temp Pulse Resp BP Pulse Ox 97.6 F 64 16 111/64 99 03/18/20 02:20 03/18/20 03:58 03/18/20 02:20 03/18/20 02:20 03/18/20 02:20 Intake & Output 03/17/20 03/18/20 03/19/20 06:59 06:59 06:59 Weight 99.836 kg Results Laboratory Results: 03/17/20 17:09 03/17/20 17:09 03/17/20 03/17/20 17:09 17:09 WBC 4.6 RBC 4.94 Hgb 15.1 Hct 41.7 MCV 84 MCH 30.6 MCHC 36.3 H RDW 13.2 Plt Count 188 Seg Neutrophils % 49.1 Sodium 139.5 Potassium 4.4 Chloride 101 Carbon Dioxide 27 Anion Gap 12 BUN 15 Creatinine 0.93 Est GFR ( Amer) > 60 Glucose 106 Calcium 9.8 Total Bilirubin 0.7 AST 24 Alkaline Phosphatase 77 Total Protein 7.3 Albumin 4.4 03/17/20 03/17/20 03/17/20 17:09 17:09 20:27 Creatine Kinase 57 CK-MB (CK-2) 0.81 Troponin I < 0.012 < 0.012 03/18/20 03/18/20 02:51 02:51 Creatine Kinase 54 L CK-MB (CK-2) 0.73 Troponin I < 0.012 Impressions: Chest X-Ray 03/17/20 17:03 IMPRESSION: NO ACUTE FINDINGS. 03/17/20 17:09 03/17/20 17:09 MCV 84 fl (80-97) 03/17/20 17:09 MCH 30.6 pg (27.0-33.4) 03/17/20 17:09 MCHC 36.3 g/dL (32.0-36.0) H 03/17/20 17:09 RDW 13.2 % (11.5-14.0) 03/17/20 17:09 Seg Neutrophils % 49.1 % (42-78) 03/17/20 17:09 Chloride 101 mmol/L (98-107) 03/17/20 17:09 Carbon Dioxide 27 mmol/L (22-30) 03/17/20 17:09 Anion Gap 12 (5-19) 03/17/20 17:09 Est GFR ( Amer) > 60 (>60) 03/17/20 17:09 Glucose 106 mg/dL (75-110) 03/17/20 17:09 Calcium 9.8 mg/dL (8.4-10.2) 03/17/20 17:09 Total Bilirubin 0.7 mg/dL (0.2-1.3) 03/17/20 17:09 AST 24 U/L (17-59) 03/17/20 17:09 Alkaline Phosphatase 77 U/L (38-126) 03/17/20 17:09 Total Protein 7.3 g/dL (6.3-8.2) 03/17/20 17:09 Albumin 4.4 g/dL (3.5-5.0) 03/17/20 17:09 03/17/20 03/17/20 03/17/20 17:09 17:09 20:27 Creatine Kinase 57 CK-MB (CK-2) 0.81 Troponin I < 0.012 < 0.012 03/18/20 03/18/20 02:51 02:51 Creatine Kinase 54 L CK-MB (CK-2) 0.73 Troponin I < 0.012 Current Medication List Generic Name Dose Route Start Last Admin Trade Name Freq PRN Reason Stop Dose Admin Acetaminophen 650 mg 03/18/20 01:28 Tylenol 325 Mg Tablet PO 04/17/20 01:27 Q4HP PRN For headache, pain or fever Al Hydrox/Mg Hydrox/Simethicone 30 ml 03/18/20 01:20 Maalox Plus Susp 30 Udcup PO 04/17/20 01:19 Q6HP PRN HEARTBURN Docusate Sodium 100 mg 03/18/20 10:00 Colace 100 Mg Capsule PO 04/17/20 09:59 BID MAXWELL Famotidine 20 mg 03/18/20 10:00 Pepcid 20 Mg Tablet PO 04/17/20 09:59 Q12 MAXWELL Guaifenesin 200 mg 03/18/20 01:28 Robitussin Syrup 200 Mg/10 Ml Ud Cup PO 04/17/20 01:27 Q4HP PRN COUGH Heparin Sodium (Porcine) 5,000 unit 03/18/20 06:00 03/18/20 05:05 Heparin Inj 5,000 Units/Ml 1 Ml Vial SUBCUT 04/17/20 05:59 5,000 unit Q8 [facility] Administration Influenza Virus Vaccine Quadrival 0.5 ml 03/19/20 08:00 Flulaval Quad 2019- Vac 0.5 Ml Syr IM 03/19/20 08:01 .ONCE ONE Ketorolac Tromethamine 30 mg 03/18/20 01:27 Toradol Inj/Pf 30 Mg/1 Ml Sdv IV 03/23/20 01:26 Q6HP PRN FOR CHEST PAIN Lorazepam 1 mg 03/18/20 01:28 Ativan Inj 2 Mg/1 Ml Vial IV 03/25/20 01:27 Q4HP PRN ANXIETY/AGITATION Magnesium Hydroxide 30 ml 03/18/20 01:20 Milk Of Magnesia 30 Ml Udcup PO 04/17/20 01:19 DAILYP PRN FOR CONSTIPATION Melatonin 5 mg 03/18/20 01:28 Melatonin 5 Mg Tablet PO 04/17/20 01:27 HSP PRN SLEEP OR INSOMNIA Metoprolol Tartrate 5 mg 03/18/20 01:28 Lopressor Inj/Pf 5 Mg/5 Ml Sdv IV 04/17/20 01:27 Q4HP PRN Give For Sbp > 160 / Dbp > 100 Ondansetron HCl 4 mg 03/18/20 01:20 Zofran Inj/Pf 4 Mg/2 Ml Sdv IV 04/17/20 01:19 Q4HP PRN FOR NAUSEA/VOMITING Sodium Chloride 2.5 ml 03/18/20 06:00 03/18/20 05:05 Saline Flush 2.5 Ml Monoject Prefil Syrin IV 04/17/20 05:59 2.5 ml Q8 MAXWELL Administration Discontinued Medications Generic Name Dose Route Start Last Admin Trade Name Freq PRN Reason Stop Dose Admin Aspirin 243 mg 03/17/20 23:13 03/17/20 23:51 Aspirin 81 Mg Chewable Tablet PO 03/17/20 23:14 243 mg NOW ONE Administration Assessment & Plan - Diagnosis (1) Chest pain Qualifiers: Chest pain type: other chest pain Qualified Code(s): R07.89 - Other chest pain; R07.8 - Other chest pain Is this a current diagnosis for this admission?: Yes Plan: Very atypical chest pain in a patient with cardiac risk factors of gender, hypertension, sedentary lifestyle and mild obesity. He ruled out with 3 sets of negative cardiac troponins. I do not believe his current chest pain has anything to do with ischemic heart disease however he did have nonobstructive disease of up to 30% of an unknown vessel in 2014 and the patient is very anxious about his symptoms therefore I believe is appropriate to proceed with a Lexiscan nuclear stress test to reassess for occult ischemia. Recommendations: -Continue with current medical management. -N.p.o. after midnight. -Lexiscan nuclear stress test tomorrow.
--- NOTE | 2020-03-18 17:39 | EKG REPORT ---
SEVERITY:- OTHERWISE NORMAL ECG - SINUS RHYTHM ABERRANT COMPLEX, POSSIBLY SUPRAVENTRICULAR : Confirmed by: Jazmyn Martinez MD 18-Mar-2020 17:37:32
[2020-03-18] MEDS: LOSARTAN POTASSIUM 25 MG TABLET PO SCH (22:48)
[2020-03-18] MEDS: ACETAMINOPHEN 325 MG TABLET PO PRN (22:50)
[2020-03-19] MEDS: HEPARIN SOD (PORCINE) 5,000 UNIT/ML 1 ML VIAL SUBCUT SCH ×2 (05:16→14:17)
[2020-03-19] MEDS ORDERED: PANTOPRAZOLE SODIUM 40 MG TABLET.DR PO SCH (06:00)
[2020-03-19] MEDS ORDERED: INFLUENZA QUAD (6MOS+) 2020-21 VAC 0.5 ML SYR IM ONE (08:00)
[2020-03-19] MEDS: FAMOTIDINE 20 MG TABLET PO SCH (09:54)
[2020-03-19] MEDS: DOCUSATE SODIUM 100 MG CAPSULE PO SCH (09:54)
[2020-03-19] MEDS: LOSARTAN POTASSIUM 25 MG TABLET PO SCH (09:54)
[2020-03-19] MEDS: ACETAMINOPHEN 325 MG TABLET PO PRN (09:56)
--- NOTE | 2020-03-19 11:44 | DRAGON STRESS TEST REPORT ---
Name: Ian Haider : Dec Date: APR 01 The patient underwent a stress/rest, single isotope SPECT Imaging with pharmacological stress and gated SPECT imaging on for evaluation of. The patient underwent infusion of regadnoson 0.4mg IV using the standard protocol. The heart rate was 62 beats per minute at baseline and increased to 93 beats during the infusion of regadenoson. The resting blood pressure was 120/79 mm/Hg and decreased to 107/68 mm/Hg, which is a normal response. The patient complained of dyspnea during the procedure. The resting electrocardiogram demonstrated NSR. Stress electrocardiogram is non- diagnostic in the setting of pharmacological stress. Myocardial perfusion imaging was performed at rest following the injection of 14.95 mCi of sestamibi. At peak pharmacolgic effect, the patient was injected with 43.2 mCi of sestamibi. Gating post-stress tomographic imaging was performed 60 minutes after stress. Findings The overall quality of the study is excellent. Raw images demonstrate no significant artifacts. Left ventricular cavity is noted to be normal on the rest and stress studies. Resting SPECT images demonstrate homogeneous tracer distribution throughout the myocardium. The stress images reveal homogeneous tracer distribution throughout the myocardium. Gated SPECT imaging reveals normal myocardial thickening and wall motion. The left ventricular ejection fraction was calculated to be 63% Impression -Myocardial perfusion imaging is normal. -There is no scintigraphic evidence of ischemia or infarct. -Overall left ventricular systolic function was normal without wall motion abnormalities. -There are no prior studies for comparison. [facility]
--- NOTE | 2020-03-19 11:54 | PDOC PROGRESS REPORT ---
Subjective Progress Note for:: 03/19/20 Subjective:: CRISTOBAL CHING is a 60 year old male with history of hypertension, diverticulosis, lung sarcoid and left sciatica who is consulted to our service for evaluation of atypical chest pain. The patient states that he has had these kind of chest pain for a long time but it continues to recur. He describes it as a very sharp pain, localized to a very discrete area over the left breast proximal to the nipple. Lasting for approximately 40 seconds, not associated with shortness of breath, dizziness, lightheadedness, syncope or presyncope, without known triggers and nonpleuritic. The patient states that he had a left heart catheterization in 2014 demonstrating a 30% stenosis in an unknown vessel. 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 He was later switched to Crestor 5 mg daily but he never took the medication. He has remained asymptomatic since admission and his telemetry shows normal sinus rhythm. 03/19/2020: The patient had an uneventful night even though he did have recurrence his index chest pain. This morning he feels well and without any complaints. Physical exam on 03/19/2020: GENERAL: Pleasant and conversational. Eating breakfast. Oriented x3 with normal mood. Not in acute distress. Well groomed and well developed. HEENT: Normocephalic, atraumatic. Pupils equal. Sclerae anicteric. Oropharynx moist. NECK: No JVD. No carotid bruits. LUNGS: Clear to auscultation bilaterally. Normal respiratory effort without the use of accessory muscles or intercostal retractions. CARDIOVASCULAR: Regular rate and rhythm, normal S1 and S2 without murmurs, rubs, or gallops. PMI not displaced. ABDOMEN: No masses or tenderness to palpation. No bruit. No splenomegaly or hepatomegaly. No abdominal aorta bruit noted. EXTREMITIES: No edema, no cyanosis, no clubbing. +2 pulses femoral and pedal pulses bilaterally. SKIN: No lesions or rashes. MUSCULOSKELETAL: No chest tenderness to palpation. NEUROLOGIC: Nonfocal. No gross sensory or motor deficits bilateral upper or lower extremities. Cardiac studies: Echocardiogram on 03/18/2020: -EF greater than 65%. -Small, hemodynamically insignificant anterior pericardial effusion. -Grade 1 diastolic dysfunction. -No regional wall motion abnormalities. -The aortic valve was not well visualized. -Mild, concentric LVH.Name: Cristobal Ching : Dec Date: APR 01 Lexiscan nuclear stress test on 03/19/2020: -Myocardial perfusion imaging is normal. -There is no scintigraphic evidence of ischemia or infarct. -Overall left ventricular systolic function was normal without wall motion abnormalities. -There are no prior studies for comparison. Reason For Visit: PLEURITIC CHEST PAIN,HYPERTENSION Physical Exam Vital Signs: Temp Pulse Resp BP Pulse Ox 97.5 F 56 L 16 115/70 96 03/19/20 08:39 03/19/20 07:00 03/18/20 23:36 03/18/20 23:36 03/18/20 23:36 Intake & Output 03/18/20 03/19/20 03/20/20 06:59 06:59 06:59 Intake Total 950 Balance 950 Weight 99.836 kg 100.743 kg Results Laboratory Results: 03/17/20 17:09 03/17/20 17:09 03/18/20 03/18/20 14:23 14:23 Magnesium 2.0 TSH 1.34 03/17/20 03/17/20 03/17/20 17:09 17:09 20:27 Creatine Kinase 57 CK-MB (CK-2) 0.81 Troponin I < 0.012 < 0.012 03/18/20 03/18/20 03/18/20 02:51 02:51 09:28 Creatine Kinase 54 L 58 CK-MB (CK-2) 0.73 Troponin I < 0.012 03/18/20 03/18/20 03/18/20 09:28 14:23 14:23 Creatine Kinase 47 L CK-MB (CK-2) 0.70 0.58 Troponin I < 0.012 < 0.012 Impressions: Chest X-Ray 03/17/20 17:03 IMPRESSION: NO ACUTE FINDINGS. 03/17/20 17:09 03/17/20 17:09 MCV 84 fl (80-97) 03/17/20 17:09 MCH 30.6 pg (27.0-33.4) 03/17/20 17:09 MCHC 36.3 g/dL (32.0-36.0) H 03/17/20 17:09 RDW 13.2 % (11.5-14.0) 03/17/20 17:09 Seg Neutrophils % 49.1 % (42-78) 03/17/20 17:09 Chloride 101 mmol/L (98-107) 03/17/20 17:09 Carbon Dioxide 27 mmol/L (22-30) 03/17/20 17:09 Anion Gap 12 (5-19) 03/17/20 17:09 Est GFR ( Amer) > 60 (>60) 03/17/20 17:09 Glucose 106 mg/dL (75-110) 03/17/20 17:09 Calcium 9.8 mg/dL (8.4-10.2) 03/17/20 17:09 Magnesium 2.0 mg/dL (1.6-2.3) 03/18/20 14:23 Total Bilirubin 0.7 mg/dL (0.2-1.3) 03/17/20 17:09 AST 24 U/L (17-59) 03/17/20 17:09 Alkaline Phosphatase 77 U/L (38-126) 03/17/20 17:09 Total Protein 7.3 g/dL (6.3-8.2) 03/17/20 17:09 Albumin 4.4 g/dL (3.5-5.0) 03/17/20 17:09 TSH 1.34 uIU/mL (0.47-4.68) 03/18/20 14:23 03/17/20 03/17/20 03/17/20 17:09 17:09 20:27 Creatine Kinase 57 CK-MB (CK-2) 0.81 Troponin I < 0.012 < 0.012 03/18/20 03/18/20 03/18/20 02:51 02:51 09:28 Creatine Kinase 54 L 58 CK-MB (CK-2) 0.73 Troponin I < 0.012 03/18/20 03/18/20 03/18/20 09:28 14:23 14:23 Creatine Kinase 47 L CK-MB (CK-2) 0.70 0.58 Troponin I < 0.012 < 0.012 Current Medication List Generic Name Dose Route Start Last Admin Trade Name Freq PRN Reason Stop Dose Admin Acetaminophen 650 mg 03/18/20 01:28 03/19/20 09:56 Tylenol 325 Mg Tablet PO 04/17/20 01:27 650 mg Q4HP PRN Administration For headache, pain or fever Al Hydrox/Mg Hydrox/Simethicone 30 ml 03/18/20 01:20 03/18/20 22:55 Maalox Plus Susp 30 Udcup PO 04/17/20 01:19 30 ml Q6HP PRN Administration HEARTBURN Dextrose 12.5 gm 03/18/20 14:27 Dextrose Inj 50% Syringe (25 Gm/50 Ml) IV 04/17/20 14:26 PRN PRN FOR BG 50-69 IN ALERT PATIENT Protocol Dextrose 25 gm 03/18/20 14:27 Dextrose Inj 50% Syringe (25 Gm/50 Ml) IV 04/17/20 14:26 PRN PRN See Label Comments Protocol Docusate Sodium 100 mg 03/18/20 10:00 03/19/20 09:54 Colace 100 Mg Capsule PO 04/17/20 09:59 100 mg BID MAXWELL Administration Famotidine 20 mg 03/18/20 10:00 03/19/20 09:54 Pepcid 20 Mg Tablet PO 04/17/20 09:59 20 mg Q12 [facility]WELL Administration Glucagon 1 mg 03/18/20 14:27 Glucagen Inj 1 Mg Vial SUBCUT 04/17/20 14:26 PRN PRN Evaluate for BG < 70 Protocol Glucose 15 gm 03/18/20 14:27 Glutose 40% Gel 15 Gm Tube PO 04/17/20 14:26 PRN PRN For BG 50-69 in Alert Patient Protocol Glucose 30 gm 03/18/20 14:27 Glutose 40% Gel 15 Gm Tube PO 04/17/20 14:26 PRN PRN FOR BG < 50 IN ALERT PATIENT Protocol Guaifenesin 200 mg 03/18/20 01:28 Robitussin Syrup 200 Mg/10 Ml Ud Cup PO 04/17/20 01:27 Q4HP PRN COUGH Heparin Sodium (Porcine) 5,000 unit 03/18/20 06:00 03/19/20 05:16 Heparin Inj 5,000 Units/Ml 1 Ml Vial SUBCUT 04/17/20 05:59 5,000 unit Q8 MAXWELL Administration Ketorolac Tromethamine 30 mg 03/18/20 01:27 03/18/20 19:44 Toradol Inj/Pf 30 Mg/1 Ml Sdv IV 03/23/20 01:26 30 mg Q6HP PRN Administration FOR CHEST PAIN Lorazepam 1 mg 03/18/20 01:28 Ativan Inj 2 Mg/1 Ml Vial IV 03/25/20 01:27 Q4HP PRN ANXIETY/AGITATION Losartan Potassium 25 mg 03/18/20 22:00 03/19/20 09:54 Cozaar 25 Mg Tablet PO 04/17/20 21:59 25 mg Q12 MAXWELL Administration Magnesium Hydroxide 30 ml 03/18/20 01:20 Milk Of Magnesia 30 Ml Udcup PO 04/17/20 01:19 DAILYP PRN FOR CONSTIPATION Melatonin 5 mg 03/18/20 01:28 03/18/20 22:48 Melatonin 5 Mg Tablet PO 04/17/20 01:27 5 mg HSP PRN Administration SLEEP OR INSOMNIA Metoprolol Tartrate 5 mg 03/18/20 01:28 Lopressor Inj/Pf 5 Mg/5 Ml Sdv IV 04/17/20 01:27 Q4HP PRN Give For Sbp > 160 / Dbp > 100 Ondansetron HCl 4 mg 03/18/20 01:20 Zofran Inj/Pf 4 Mg/2 Ml Sdv IV 04/17/20 01:19 Q4HP PRN FOR NAUSEA/VOMITING Pantoprazole Sodium 40 mg 03/19/20 06:00 03/19/20 05:[address] Tablet PO 04/18/20 05:59 40 mg Q6AM MAXWELL Administration Sodium Chloride 2.5 ml 03/18/20 06:00 03/19/20 05:17 Saline Flush 2.5 Ml Monoject Prefil Syrin IV 04/17/20 05:59 Not Given Q8 MAXWELL Discontinued Medications Generic Name Dose Route Start Last Admin Trade Name Freq PRN Reason Stop Dose Admin Aspirin 243 mg 03/17/20 23:13 03/17/20 23:51 Aspirin 81 Mg Chewable Tablet PO 03/17/20 23:14 243 mg NOW ONE Administration Influenza Virus Vaccine Quadrival 0.5 ml 03/19/20 08:00 Flulaval Quad 2020- Vac 0.5 Ml Syr IM 03/19/20 08:01 .ONCE ONE Assessment & Plan - Diagnosis (1) Chest pain Qualifiers: Chest pain type: other chest pain Qualified Code(s): R07.89 - Other chest pain; R07.8 - Other chest pain Is this a current diagnosis for this admission?: Yes Plan: Very atypical chest pain in a patient with cardiac risk factors of gender, hypertension, sedentary lifestyle and mild obesity. He ruled out with 5 sets of negative cardiac troponins. His Lexiscan nuclear stress test this in the morning was normal. Recommendations: -Primary prevention measures such as daily exercise for at least 30 minutes, low-sodium/low-cholesterol diet. -Start Crestor 5 mg every other night. -The patient may be discharged from the cardiovascular standpoint. -Follow-up with primary care provider.
--- NOTE | 2020-03-19 14:14 | PDOC DISCHARGE SUMMARY ---
Impression - Admit/DC Date/PCP Admission Date/Primary Care Provider: 03/18/20 01:12 YENI ZAMARRIPA MD Discharge Date: 03/19/20 - Discharge Diagnosis (1) Chest pain Is this a current diagnosis for this admission?: Yes (2) GERD (gastroesophageal reflux disease) Is this a current diagnosis for this admission?: Yes (3) Hypertension Is this a current diagnosis for this admission?: Yes (4) Obesity (BMI 30.0-34.9) Is this a current diagnosis for this admission?: Yes - Assessment Summary: . - Additional Information Resuscitation Status: Full Code Discharge Diet: Regular Discharge Activity: Activity As Tolerated Referrals: YENI ZAMARRIPA MD [Primary Care Provider] - 03/31/20 11:15 am () Prescriptions: Rosuvastatin Calcium [Crestor] 5 mg PO Q2D #30 tablet Pantoprazole Sodium [Protonix [address] Tablet] 40 mg PO Q6AM #60 tablet. Home Medications: Olmesartan Medoxomil [Benicar] 20 mg PO DAILY 03/18/20 Pantoprazole Sodium [Protonix [address] Tablet] 40 mg PO Q6AM #60 tablet.dr 03/19/20 Rosuvastatin Calcium [Crestor] 5 mg PO Q2D #30 tablet 03/19/20 History of Present Illiness History of Present Illness: According to admitting provider: CRISTOBAL CHING is a 60 year old male who presented the emergency room with a one-week history of chest pain. He admits progressively worsening and more frequent intermittent episodes of severely sharp stabbing pain in his left anterior chest lasting for a few seconds and resolving. His pain is associated with a concurrent brief episode of dyspnea. He admits a prior similar episode of pain earlier this year that was evaluated by several specialists and involve numerous tests including CAT scans, endoscopy, colonoscopy and a cardiac stress test. After a period of time his symptoms resolved until beginning again last week. He has taken baby aspirin and Nexium at home without relief. He denies other associated or accompanying signs and symptoms. He has not identified any aggravating or ameliorating factors for his chest pain. In the emergency room he had an EKG and cardiac enzymes x2- for cardiac ischemia or myocardial injury. He continued to have episodes of chest pain and at the emergency room providers insistence he was admitted to observation status, an echocardiogram was ordered and a cardiology consultation will be obtained with Dr. Dukes. Hospital Course Hospital Course: Patient was admitted to the hospital for evaluation of chest pains. Of note his episodes of chest pains were very brief and typically lasted a few seconds to about 1 to 2 minutes. Chest x-ray was obtained which was unimpressive. Trop onins were measured over 3 times and were all negative. He was evaluated by skin care specialist Dr. 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 Patient underwent a Lexiscan stress test today which was negative for any ischemia. He feels well but still gets some of his episodic pain. I did have him try to drink cold water which he stated triggered the symptoms mildly. He does have occasional heartburn. I suspect his symptoms may be due to possible brief esophageal spasm secondary to GERD and started him on Protonix. He will be following up with primary care provider as outpatient. Physical Exam Vital Signs: Temp Pulse Resp BP Pulse Ox 97.5 F 56 L 16 115/70 96 03/19/20 08:39 03/19/20 07:00 03/18/20 23:36 03/18/20 23:36 03/18/20 23:36 Intake & Output 03/18/20 03/19/20 03/20/20 06:59 06:59 06:59 Intake Total 950 Balance 950 Weight 99.836 kg 100.743 kg General appearance: PRESENT: no acute distress, cooperative Neck exam: ABSENT: JVD Respiratory exam: PRESENT: unlabored. ABSENT: wheezes Cardiovascular exam: PRESENT: +S1, +S2 Neurological exam: PRESENT: alert, awake Results Laboratory Results: WBC 4.6 10^3/uL (4.0-10.5) 03/17/20 17:09 RBC 4.94 10^6/uL (4.35-5.55) 03/17/20 17:09 Hgb 15.1 g/dL (13.5-17.0) 03/17/20 17:09 Hct 41.7 % (37.9-51.0) 03/17/20 17: MCV 84 fl (80-97) 03/17/20 17:09 MCH 30.6 pg (27.0-33.4) 03/17/20 17: MCHC 36.3 g/dL (32.0-36.0) H 03/17/20 17:09 RDW 13.2 % (11.5-14.0) 03/17/20 17:09 Plt Count 188 10^3/uL (150-450) 03/17/20 17:09 Lymph % (Auto) 36.4 % (13-45) 03/17/20 17:09 [place] % (Auto) 8.2 % (3-13) 03/17/20 17:09 Eos % (Auto) 5.4 % (0-6) 03/17/20 17:09 Baso % (Auto) 0.9 % (0-2) 03/17/20 17:09 Absolute Neuts (auto) 2.3 10^3/uL (1.7-8.2) 03/17/20 17:09 Absolute Lymphs (auto) 1.7 10^3/uL (0.5-4.7) 03/17/20 17:09 Absolute Monos (auto) 0.4 10^3/uL (0.1-1.4) 03/17/20 17:09 Absolute Eos (auto) 0.3 10^3/uL (0.0-0.6) 03/17/20 17:09 Absolute Basos (auto) 0.0 10^3/uL (0.0-0.2) 03/17/20 17:09 Seg Neutrophils % 49.1 % (42-78) 03/17/20 17:09 Sodium 139.5 mmol/L (137-145) 03/17/20 17:09 Potassium 4.4 mmol/L (3.6-5.0) 03/17/20 17:09 Chloride 101 mmol/L (98-107) 03/17/20 17:09 Carbon Dioxide 27 mmol/L (22-30) 03/17/20 17:09 Anion Gap 12 (5-19) 03/17/20 17:09 BUN 15 mg/dL (7-20) 03/17/20 17:09 Creatinine 0.93 mg/dL (0.52-1.25) 03/17/20 17:09 Est GFR ( Amer) > 60 (>60) 03/17/20 17:09 Est GFR (MDRD) Non-Af > 60 (>60) 03/17/20 17:09 Glucose 106 mg/dL (75-110) 03/17/20 17:09 Calcium 9.8 mg/dL (8.4-10.2) 03/17/20 17:09 Magnesium 2.0 mg/dL (1.6-2.3) 03/18/20 14:23 Total Bilirubin 0.7 mg/dL (0.2-1.3) 03/17/20 17:09 Direct Bilirubin 0.3 mg/dL (0.0-0.4) 03/17/20 17:09 Neonat Total Bilirubin Not Reportable 03/17/20 17:09 Neonat Direct Bilirubin Not Reportable 03/17/20 17:09 Neonat Indirect Bili Not Reportable 03/17/20 17:09 AST 24 U/L (17-59) 03/17/20 17:09 ALT 23 U/L (<50) 03/17/20 17:09 Alkaline Phosphatase 77 U/L (38-126) 03/17/20 17:09 Creatine Kinase 47 U/L (55-170) L 03/18/20 14:23 CK-MB (CK-2) 0.58 ng/mL (<4.55) 03/18/20 14:23 Troponin I < 0.012 ng/mL 03/18/20 14:23 Total Protein 7.3 g/dL (6.3-8.2) 03/17/20 17:09 Albumin 4.4 g/dL (3.5-5.0) 03/17/20 17:09 TSH 1.34 uIU/mL (0.47-4.68) 03/18/20 14:23 03/17/20 03/17/20 03/18/20 17:09 20:27 02:51 CK-MB (CK-2) 0.81 0.73 Troponin I < 0.012 < 0.012 < 0.012 03/18/20 03/18/20 09:28 14:23 CK-MB (CK-2) 0.70 0.58 Troponin I < 0.012 < 0.012 Impressions: Chest X-Ray 03/17/20 17:03 IMPRESSION: NO ACUTE FINDINGS. Plan Time Spent: Greater than 30 Minutes Stroke Is this a Stroke Patient?: No Acute Heart Failure Is this a Heart Failure Patient?: No
[2020-03-19] MEDS ORDERED: REGADENOSON INJ 0.4 MG/5 ML DISP.SYRIN IV ONE (14:17)
[2020-03-19 14:32] VITALS: BP 135/79
--- NOTE | 2020-03-19 15:18 | EKG REPORT ---
SEVERITY:- NORMAL ECG - SINUS RHYTHM : Confirmed by: Jazmyn Martinez MD 19-Mar-2020 15:16:11
== END 2020-03-19 16:02 | disposition home or self-care (01) ==
LOC: ER 16:15 → EH 03-18 01:12 → 4N 03-18 02:30
PROVIDERS: ADMIT Emergency Medicine; ATTEND Internal Medicine
DX: R07.89 Other chest pain (principal); K21.9 Gastro-esophageal reflux disease without esophagitis; I10 Essential (primary) hypertension; E66.9 Obesity, unspecified; Z79.899 Other long term (current) drug therapy; R06.00 Dyspnea, unspecified; Z88.0 Allergy status to penicillin; Z88.8 Allergy status to other drugs, medicaments and biological substances; Z87.19 Personal history of other diseases of the digestive system; Z79.01 Long term (current) use of anticoagulants
CPT/HCPCS: 93005; 99285; 36415 ×2; 82553 ×2; 82550 ×2; 83735; 84443; 85025; 80053; 84484 ×2; 93306; 93017; 71046; 78452; 93010; G0378 ×2; A9500; J2785; J1644 ×2; J1885; J3490 ×3; Q9969